=== PATIENT | female | born 1930 | race Caucasian/White ===

== ENCOUNTER 2017-09-11 16:04 | Emergency (ER) | payer OTHER ==
[~2017-09-11] VITALS: Ht 170.2 cm; Wt 80.5 kg
[~2017-09-11 16:04] MED LIST: ALBU6.7H INH; ALLO100T PO; PRED20 PO; ZITH250T PO
[2017-09-11 16:06] VITALS: BP 152/67; PULSE 93; RESP 16; TEMP 98.1; O2SAT 93
[2017-09-11] MEDS ORDERED: BENA10TA PO (16:21)
[2017-09-11] MEDS ORDERED: FURO1TAB62 PO (16:21)
[2017-09-11] MEDS ORDERED: ATOR40TA16 PO (16:21)
--- NOTE | 2017-09-11 16:43 | PD ---
HPI Chief Complaint: GI Complaint Time Seen by Provider: 16:12 Travel History International Travel<30 days: No Contact w/Intl Traveler<30days: No Traveled to known affect area: No History of Present Illness HPI The patient is a 87-year-old female who presents to the emergency department for constipation. The patient notes a one-week history of constipation. The patient estimates her last bowel movement was one week ago. The patient does complain of mild perirectal pain secondary to external hemorrhoids. She denies any nausea, vomiting, or abdominal pain. The patient states she has used [id number] suppositories, enemas, and MiraLAX without any alleviation of her symptoms. She denies any distention of the abdomen and has been able to eat without difficulty. The patient called her primary physician, Dr. Mendez, but was unable to obtain an appointment. She denies any fever, chills, or sweats. She denies any history of small bowel obstruction or partial small bowel obstruction. Symptoms are moderate, there are no current alleviating or exacerbating factors. PFSH Past Medical History Hx Anticoagulant Therapy: No Cardiovascular Problems: Yes (HTN, CHOL) High Cholesterol: Yes Cerebrovascular Accident: Yes (CVA) Diabetes: No Diminished Hearing: Yes ([place] Hypertension: Yes Tetanus Vaccination: Unknown Influenza Vaccination: No ?: Not Past Surgical History Cholecystectomy: Yes Hysterectomy: Yes Social History Alcohol Use: No Tobacco Use: Yes (1 PPD) Substance Use: No Allergies-Medications (Allergen,Severity, Reaction): Coded Allergies: codeine (Unverified Allergy, Mild, Constipation, 09/11/17) Reported Meds & Prescriptions Reported Meds & Active Scripts Active Reported Atorvastatin (Atorvastatin Calcium) 40 Mg Tab 40 Mg PO HS Benazepril (Benazepril HCl) 10 Mg Tab 10 Mg PO DAILY Lasix (Furosemide) 20 Mg Tab 20 Mg PO DAILY Review of Systems Except as stated in HPI: all other systems reviewed are Neg HENT: No: Lightheadedness Cardiovascular: No: Chest Pain or Discomfort Respiratory: No: Shortness of Breath Gastrointestinal: Positive: Constipation, Other (as noted in history present illness), No: Nausea, Vomiting, Diarrhea, Abdominal Pain Genitourinary: No: Dysuria Physical Exam Narrative GENERAL: Awake, alert, pleasant 87-year-old female who appears her stated age and is in no acute respiratory distress. SKIN: Focused skin assessment warm/dry. HEAD: Atraumatic. Normocephalic. EYES: No injection or drainage. ENT: No nasal bleeding or discharge. Mucous membranes pink and moist. NECK: Trachea midline. No JVD. GASTROINTESTINAL: Abdomen soft, non-tender, nondistended. No rebound tenderness , guarding, or rigidity. Back: No CVA tenderness. Rectal: The exam was performed in the presence of a female nurse. External examination reveals external hemorrhoids, no visible thrombosis or bleeding. Digital examination reveals no fecal impaction. No gross blood. MUSCULOSKELETAL: No obvious deformities. No clubbing. No cyanosis. No edema. NEUROLOGICAL: Awake and alert. No obvious cranial nerve deficits. Motor grossly within normal limits. Normal speech. PSYCHIATRIC: Appropriate mood and affect; insight and judgment normal. Data Data Last Documented VS Vital Signs Date Time Temp Pulse Resp B/P (MAP) Pulse Ox O2 Delivery O2 Flow Rate FiO2 09/11/17 16:06 98.1 93 16 152/67 (95) 93 Orders Orders Abdomen, Upright Only (09/11/17 ) [facility] Medical Decision Making Medical Screen Exam Complete: Yes Emergency Medical Condition: Yes Medical Record Reviewed: Yes Interpretation(s) X-ray of the abdomen upright reveals no pneumoperitoneum believe the hemidiaphragm. Several small air-fluid levels are seen involving gas filled loops of small bowel, no gross dilatation observed. No evidence of small bowel obstruction. Differential Diagnosis Differential diagnosis includes constipation, ileus, partial small bowel obstruction, small bowel obstruction, volvulus. Narrative Course A digital examination was performed, there is no obvious fecal impaction on examination. Upright abdominal x-ray was obtained to evaluate for possible air- fluid levels. X-ray reveals no air-fluid levels significant to suggest small bowel obstruction or ileus. The patient be discharged home on GoLYTELY. She is advised to follow-up with her primary physician if symptoms persist to follow -up with gastroenterology. Diagnosis Primary Impression: Constipation Qualified Codes: K59.00 - Constipation, unspecified Patient Instructions: General Instructions Additional Instructions: Plenty of fiber in her diet. GoLYTELY as directed. Plenty fluids to stay hydrated. Follow-up with your primary physician. Follow-up with gastroenterology if symptoms persist. Med/Other Pt SpecificInfo: Prescription(s) given Scripts Peg-Electrolytes (Golytely 236 gm) 4,000 Ml Soln 4000 ML PO ONCE for Bowel Cleanser, #1 CONTAINER 0 Refills Prov: Hi Krueger MD 09/11/17 Disposition: 01 DISCHARGE HOME Condition: Stable Hi Krueger MD Sep 11, 2017 16:43
--- NOTE | 2017-09-11 16:53 | RADRPT ---
EXAM DATE/TIME: 09/11/2017 16:30 [facility] COMPARISON: No previous studies available for comparison. INDICATIONS : Constipation. MEDICAL HISTORY : None. SURGICAL HISTORY : Hysterectomy. ENCOUNTER: Initial ACUITY: 1 week PAIN SCORE: 8/10 LOCATION: Bilateral abdomen FINDINGS: A single portable upright view of the upper abdomen shows no pneumoperitoneum below either hemidiaphr agm. Several small air-fluid levels are seen involving gas filled loops of small bowel. No gross dila tation observed. No organomegaly. Cholecystectomy clips noted. Calcified plaque involving the abdomin al aorta. CONCLUSION: No pneumoperitoneum. Jordan Ruiz Jr., MD on September 11, 2017 at 16:51 Board Certified Radiologist. This report was verified electronically.
[2017-09-11] MEDS ORDERED: COLY4000S PO (16:56)
== END 2017-09-11 17:07 | disposition home or self-care (01) ==
LOC: PHED 16:04
DX: K59.00 Constipation, unspecified (principal); K64.4 Residual hemorrhoidal skin tags; I10 Essential (primary) hypertension; Z86.73 Personal history of transient ischemic attack (TIA), and cerebral infarction without residual deficits; E78.00 Pure hypercholesterolemia, unspecified; F17.200 Nicotine dependence, unspecified, uncomplicated
CPT/HCPCS: 74000; 99284

== ENCOUNTER 2017-12-06 21:55 | Inpatient (IN) | payer OTHER, MEDICARE ==
[~2017-12-06] VITALS: Ht 172.7 cm; Wt 75.7 kg
[~2017-12-06 21:55] MED LIST changes: -ALBU6.7H INH; -ALLO100T PO; +ATOR40TA16 PO; +BENA10TA PO; +COLY4000S PO; +FURO1TAB62 PO; -PRED20 PO; -ZITH250T PO
[2017-12-06 21:58] VITALS: BP 197/91; PULSE 83; RESP 24; TEMP 98.8; O2SAT 97
[2017-12-06] MEDS ORDERED: SODIUM CHLORIDE 0.9% FLUSH 10 ML FLUSH IVF PRN (22:00)
[2017-12-06 22:01] VITALS: O2SAT 97
--- NOTE | 2017-12-06 22:07 | PD ---
HPI Chief Complaint: SOB Time Seen by Provider: 21:57 Travel History International Travel<30 days: No Contact w/Intl Traveler<30days: No History of Present Illness HPI 87-year-old female presents to emergency department complaining of shortness of breath since last night. Patient states that she was lying in bed and when she began feeling short of breath and has progressively worsened over the last day. Admits to orthopnea for the last week. Patient denies chest pain, back pain, abdominal pain. Patient has a history of atrial fibrillation on Eliquis and COPD for which uses inhalers. Denies history of congestive heart failure, heart attacks. States she is compliant with her medications. According to [facility] , Oxygen saturation was initially in the 80s after 1 DuoNeb, they then administered one dose of nitroglycerin and 80 mg Lasix. Patient with his then placed on BiPAP and her symptoms improved. 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 Pt continues to smoke heavily. PFSH Past Medical History Hx Anticoagulant Therapy: No Cardiovascular Problems: Yes (HTN, CHOL) High Cholesterol: Yes Cerebrovascular Accident: Yes (CVA) Diabetes: No Diminished Hearing: Yes ([place]) Hypertension: Yes Past Surgical History Cholecystectomy: Yes Hysterectomy: Yes Social History Alcohol Use: No Tobacco Use: Yes (1 PPD) Substance Use: No Allergies-Medications (Allergen,Severity, Reaction): Coded Allergies: codeine (Unverified Allergy, Mild, Constipation, 12/06/17) Reported Meds & Prescriptions Reported Meds & Active Scripts Active Reported Metoprolol Tartrate 50 Mg Tab 50 Mg PO BID Eliquis (Apixaban) 2.5 Mg Tab 2.5 Mg PO BID Mynephrocaps Softgel (B Complex W-C No.20/Folic Acid) 1 Mg Capsule Krill Oil 1,000 mg Softgel (Krill/Om-3/Dha/Epa/Phospho/Ast) 1,000-170MG Capsule Aspirin 81 (Aspirin) 81 Mg Tabdr 81 Mg PO DAILY D3 Super Strength (Cholecalciferol) 2,000 Unit Cap 2,000 Units PO DAILY Centrum Silver Adult 50+ (Multiple Vitamins W/ Minerals) 0.4 Mg-300 Mcg-250 Mcg Tab Combivent Respimat Inh (Ipratropium-Albuterol Inh) 20-100 Mcfp/Act Aero 1 Puff INH QID Potassium Chloride ER (Potassium Chloride) 10 Meq Cap 10 Meq PO DAILY Atorvastatin (Atorvastatin Calcium) 40 Mg Tab 40 Mg PO HS Benazepril (Benazepril HCl) 10 Mg Tab 10 Mg PO DAILY Review of Systems Except as stated in HPI: all other systems reviewed are Neg Physical Exam Narrative GENERAL: Well-developed well-nourished in mod distress SKIN: Focused skin assessment warm/dry. HEAD: Atraumatic. Normocephalic. EYES: Pupils equal and round. No scleral icterus. No injection or drainage. ENT: No nasal bleeding or discharge. Mucous membranes pink and moist. NECK: Trachea midline. No JVD. CARDIOVASCULAR: Regular rate and rhythm. No murmur appreciated. RESPIRATORY: Accessory muscle use. Wheezes in upper lung ibrahim, rales lower lung ibrahim GASTROINTESTINAL: Abdomen soft, non-tender, nondistended. MUSCULOSKELETAL: No obvious deformities. No clubbing. No cyanosis. No edema. Lower extremities- +2 pitting edema bilateral lower extremities, negative Homans sign bilaterally NEUROLOGICAL: Awake and alert. No obvious cranial nerve deficits. Motor grossly within normal limits. Normal speech. PSYCHIATRIC: Appropriate mood and affect; insight and judgment normal. Data Data Last Documented VS Vital Signs Date Time Temp Pulse Resp B/P (MAP) Pulse Ox O2 Delivery O2 Flow Rate FiO2 12/07/17 00:00 60 22 126/59 (81) 99 BiPAP 12/06/17 22:01 60 12/06/17 21:58 98.8 Orders Orders Complete Blood Count With Diff (12/06/17 21:58) Comprehensive Metabolic Panel (12/06/17 21:58) B-Type Natriuretic Peptide (12/06/17 21:58) Act Partial Throm Time (Ptt) (12/06/17 21:58) Prothrombin Time / Inr (Pt) (12/06/17 21:58) Magnesium (Mg) (12/06/17 21:58) Ckmb (Isoenzyme) Profile (12/06/17 21:58) Troponin I (12/06/17 21:58) Urinalysis - C+S If Indicated (12/06/17 21:58) Blood Culture (12/06/17 21:58) Iv Access Insert/Monitor (12/06/17 21:58) Electrocardiogram (12/06/17 21:58) Ecg Monitoring (1/14/18 21:58) Oximetry (12/06/17 21:58) Oxygen Administration (12/06/17 21:58) Urinary Catheter Insert/Apply (12/06/17 21:58) Chest, Single Ap (12/06/17 21:58) Arterial Blood Gas (Abg) (12/06/17 22:28) Levofloxacin 750 Mg Premix Inj (Levaquin (12/06/17 23:00) Admit Order (Ed Use Only) (12/07/17 ) Flower Picker / Telemetry [id number] (12/07/17 00:38) Activity Oob With Assistance (12/07/17 00:38) Notify Dr: Other (12/07/17 00:38) Labs Laboratory Tests Test 12/06/17 22:10 12/06/17 22:25 12/06/17 22:28 White Blood Count 14.0 TH/MM3 Red Blood Count 5.95 MIL/MM3 Hemoglobin 15.3 GM/DL Hematocrit 45.3 % Mean Corpuscular Volume 76.0 FL Mean Corpuscular Hemoglobin 25.7 PG Mean Corpuscular Hemoglobin Concent 33.8 % Red Cell Distribution Width 19.2 % Platelet Count 195 TH/MM3 Mean Platelet Volume 10.5 FL Neutrophils (%) (Auto) 73.9 % Lymphocytes (%) (Auto) 14.4 % Monocytes (%) (Auto) 7.1 % Eosinophils (%) (Auto) 4.1 % Basophils (%) (Auto) 0.5 % Neutrophils # (Auto) 10.3 TH/MM3 Lymphocytes # (Auto) 2.0 TH/MM3 Monocytes # (Auto) 1.0 TH/MM3 Eosinophils # (Auto) 0.6 TH/MM3 Basophils # (Auto) 0.1 TH/MM3 CBC Comment AUTO DIFF Differential Total Cells Counted 100 Neutrophils % (Manual) 43 % Band Neutrophils % 30 % Lymphocytes % 14 % Monocytes % 9 % Eosinophils % 4 % Neutrophils # (Manual) 10.2 TH/MM3 Differential Comment FINAL DIFF MANUAL Platelet Estimate NORMAL Platelet Morphology Comment ENLARGED Acanthocytes OCC Prothrombin Time 10.7 SEC Prothromb Time International Ratio 1.1 RATIO Activated Partial Thromboplast Time 21.7 SEC Blood Urea Nitrogen 19 MG/DL Creatinine 1.07 MG/DL Random Glucose 229 MG/DL Total Protein 8.1 GM/DL Albumin 3.2 GM/DL Calcium Level 8.9 MG/DL Magnesium Level 1.9 MG/DL Alkaline Phosphatase 106 U/L Aspartate Amino Transf (AST/SGOT) 39 U/L Alanine Aminotransferase (ALT/SGPT) 32 U/L Total Bilirubin 0.5 MG/DL Sodium Level 136 MEQ/L Potassium Level 4.3 MEQ/L Chloride Level 104 MEQ/L Carbon Dioxide Level 25.5 MEQ/L Anion Gap 7 MEQ/L Estimat Glomerular Filtration Rate 49 ML/MIN Total Creatine Kinase 87 U/L Troponin I 0.03 NG/ML B-Type Natriuretic Peptide 600 PG/ML Urine Color LIGHT-YELLOW Urine Turbidity CLEAR Urine pH 6.5 Urine Specific [place] 1.006 Urine Protein 100 mg/dL Urine Glucose (UA) TRACE mg/dL Urine Ketones NEG mg/dL Urine Occult Blood NEG Urine Nitrite NEG Urine Bilirubin NEG Urine Urobilinogen LESS THAN 2.0 MG/DL Urine Leukocyte Esterase NEG Urine RBC 2 /hpf Urine WBC 4 /hpf Urine Squamous Epithelial Cells <1 /hpf Urine Amorphous Sediment RARE Urine Bacteria RARE /hpf Microscopic Urinalysis Comment CULT NOT INDICATED Blood Gas Puncture Site RT RADIAL Blood Gas Patient Temperature 98.6 Blood Gas HCO3 24 mmol/L Blood Gas Base Excess -0.5 mmol/L Blood Gas Oxygen Saturation 96 % Arterial Blood pH 7.39 Arterial Blood Partial Pressure CO2 41 mmHg Arterial Blood Partial Pressure O2 99 mmHG Arterial Blood Oxygen Content 20.2 Vol % Arterial Blood Carboxyhemoglobin 1.6 % Arterial Blood Methemoglobin 0.6 % Blood Gas Hemoglobin 15.0 G/DL Oxygen Delivery Device BiPAP Blood Gas Ventilator Setting IPAP 12/ EPAP 5 Blood Gas Inspired Oxygen 60 % [facility] Medical Decision Making Medical Screen Exam Complete: Yes Emergency Medical Condition: Yes Differential Diagnosis Congestive heart failure, respiratory distress, COPD exacerbation, pneumonia, influenza Narrative Course 87-year-old female presents to emergency department complaining of shortness of breath since last night. Patient states that she was lying in bed and when she began feeling short of breath and has progressively worsened over the last day. Admits to orthopnea for the last week. Patient denies chest pain, back pain, abdominal pain. Patient has a history of atrial fibrillation on Eliquis and COPD for which uses inhalers. Denies history of congestive heart failure, heart attacks. States she is compliant with her medications. According to [facility] , Oxygen saturation was initially in the 80s after 1 DuoNeb, they then administered one dose of nitroglycerin and 80 mg Lasix. Patient with his then placed on BiPAP and her symptoms improved. 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 Pt continues to smoke heavily. Initial SaO2 87% in Bipap, improved to 100% with improvement in symptoms.. Patient remained on BiPAP while the emergency department. EKG demonstrates sinus rhythm at [address] elevations or depressions. Levaquin 750mg IV initiated. Please see Dr. Penn's note for final dispo and diagnosis. Admitting Information Admitting Physician Requests: Admit Condition: Stable Kelly Peoples Dec 06, 2017 22:07
[2017-12-06] MEDS ORDERED: B COCAP (22:34)
[2017-12-06] MEDS ORDERED: IPRAAER INH (22:34)
[2017-12-06] MEDS ORDERED: POTA10CA PO (22:34)
[2017-12-06] MEDS ORDERED: D200CAP PO (22:34)
[2017-12-06] MEDS ORDERED: KRIL1CAP (22:34)
[2017-12-06] MEDS ORDERED: ASPI1TAB57 PO (22:34)
[2017-12-06] MEDS ORDERED: MULT1TAB (22:34)
--- NOTE | 2017-12-06 22:38 | RADRPT ---
EXAM DATE/TIME: 12/06/2017 22:05 [facility] COMPARISON: No previous studies available for comparison. INDICATIONS : Short of breath MEDICAL HISTORY : Cerebrovascular disease. Chronic obstructive pulmonary disease. SURGICAL HISTORY : Hysterectomy. Cholecystectomy. ENCOUNTER: Initial ACUITY: 1 day PAIN SCORE: 0/10 LOCATION: Bilateral chest FINDINGS: Diffuse hazy parenchymal opacities are seen of both lungs. A somewhat masslike appearing focal opacit y is seen laterally of the right mid to lower lung measuring about 3 cm in size. There is a small left pleural effusion. No pneumothorax. CONCLUSION: Mild failure suspected. Possible mass or focal pneumonia of the right base. Doroteo Rico MD on December 06, 2017 at 22:34 Board Certified Radiologist. This report was verified electronically.
[2017-12-06 22:42] LABS: AMORPHOUS SEDIMENT, URINE RARE; BACTERIA, URINE RARE /hpf; BILIRUBIN, URINE NEG (NEG); BLOOD, URINE NEG (NEG); GLUCOSE,URINE TRACE mg/dL (NEG); KETONE, URINE NEG (NEG); NITRITE,URINE NEG (NEG); PH, URINE 6.5 (5.0-8.5); SQUAMOUS EPITHELIAL CELL URINE <1 /hpf (0-5); URINE COLOR LIGHT-YELLOW (YELLW/STRAW); URINE LEUKOCYTE ESTERASE NEG (NEG)
[2017-12-06 22:58] LABS: INTERNATIONAL NORMALIZED RATIO 1.1 RATIO; PROTHROMBIN TIME - PATIENT 10.7 SEC (9.8-11.6)
[2017-12-06 23:00] VITALS: BP 133/60; PULSE 68; RESP 27; O2SAT 99
[2017-12-06] MEDS ORDERED: LEVOFLOXACIN 750 MG PREMIX INJ 150 ML IV ONE (23:00)
[2017-12-06 23:03] LABS: ALBUMIN 3.2 GM/DL (3.4-5.0); ALKALINE PHOSPHATASE 106 U/L (45-117); ALT (GPT) 32 U/L (10-53); AST (GOT) 39 U/L (15-37); BICARBONATE 25.5 MEQ/L (21.0-32.0); BLOOD UREA NITROGEN 19 MG/DL (7-18); CALCIUM 8.9 MG/DL (8.5-10.1); CHLORIDE 104 MEQ/L (98-107); CREATININE 1.07 MG/DL (0.50-1.00); GLOMERULAR FILTRATION RATE 49 ML/MIN (>89); GLUCOSE,RANDOM 229 MG/DL (74-106); MAGNESIUM 1.9 MG/DL (1.5-2.5); SODIUM (NA) 136 MEQ/L (136-145); TOTAL BILIRUBIN ADULT 0.5 MG/DL (0.2-1.0); TOTAL PROTEIN 8.1 GM/DL (6.4-8.2); TROPONIN I 0.03 NG/ML (0.02-0.05)
[2017-12-06 23:23] LABS: AUTOMATED NEUTROPHIL # 10.3 TH/MM3 (1.8-7.7); BASOPHIL # 0.1 TH/MM3 (0-0.2); BASOPHIL % 0.5 % (0.0-2.0); EOSINOPHIL # 0.6 TH/MM3 (0-0.4); EOSINOPHIL % 4.1 % (0.0-4.0); HEMATOCRIT 45.3 % (35.0-46.0); HEMOGLOBIN 15.3 GM/DL (11.6-15.3); LYMPH % 14.4 % (9.0-44.0); MEAN CORPUSCULAR HEMOGLOBIN 25.7 PG (27.0-34.0); MEAN CORPUSCULAR HGB CONC 33.8 % (32.0-36.0); MEAN PLATELET VOLUME 10.5 FL (7.0-11.0); MONO % 7.1 % (0.0-8.0); NEUT % 73.9 % (16.0-70.0); PLATELET COUNT 195 TH/MM3 (150-450); RED BLOOD COUNT 5.95 MIL/MM3 (4.00-5.30); RED CELL DISTRIBUTION WIDTH 19.2 % (11.6-17.2)
[2017-12-06 23:30] VITALS: BP 150/67; PULSE 60; RESP 27; O2SAT 99
[2017-12-06 23:38] LABS: BANDS 30 % (0-6); LYMPHOCYTES 14 % (9-44); MONOCYTES 9 % (0-8); NEUTROPHIL # MANUAL DIFF 10.2 TH/MM3 (1.8-7.7); POLYS (SEG NEUTROPHILS) 43 % (16-70)
[2017-12-06 23:39] LABS: ACANTHOCYTES OCC (NORMAL)
[2017-12-07] VITALS (28 sets, daily range): BP systolic 113–168; BP diastolic 55–73; PULSE 59–83; RESP 16–22; TEMP 97.3–98.6; O2SAT 93–100
[2017-12-07] MEDS ORDERED: BISACODYL 10 MG SUPP RECTAL PRN (01:00)
[2017-12-07] MEDS ORDERED: MORPHINE SULFATE 2 MG/ML INJ IV PUSH PRN (01:00)
[2017-12-07] MEDS ORDERED: ONDANSETRON HCL 4 MG/2 ML VIAL IVP PRN (01:00)
[2017-12-07] MEDS ORDERED: RESP: ALBUTEROL 2.5 MG/IPRATROPIUM 0.5 MG NEB (PRN) NEB (01:00)
[2017-12-07] MEDS ORDERED: SENNOSIDES 8.6 MG TAB PO PRN (01:00)
[2017-12-07] MEDS ORDERED: SODIUM CHLORIDE 0.9% FLUSH 10 ML FLUSH IV FLUSH PRN (01:00)
[2017-12-07] MEDS ORDERED: MAGNESIUM HYDROXIDE SUSP 30 ML CUP PO PRN (01:00)
[2017-12-07] MEDS ORDERED: LACTULOSE SYRUP 20 GM/30 ML CUP PO PRN (01:00)
[2017-12-07] MEDS ORDERED: ACETAMINOPHEN 325 MG TAB PO PRN (01:00)
[2017-12-07] MEDS ORDERED: DEXTROSE 50% IN WATER 50 ML VIAL(D50) IV PUSH PRN (02:30)
[2017-12-07] MEDS ORDERED: GLUCAGON 1 MG/ML VIAL OTHER PRN (02:30)
--- NOTE | 2017-12-07 02:50 | HHI.HP ---
HPI Service [facility] Primary [facility] Physician Unknown Admission Diagnosis chf Diagnoses: (1) CHF (congestive heart failure) Diagnosis: Principal (2) Acute respiratory failure Diagnosis: Principal (3) Leukocytosis Diagnosis: Principal (4) DM (diabetes mellitus) Diagnosis: Principal (5) Tobacco abuse Diagnosis: Principal Travel History International Travel<30 Days: No Contact w/Intl Traveler <30 Da: No Traveled to Known Affected Are: No History of Present Illness This is an 87-year-old female with PMH of HTN, Hyperlipidemia, CHF (Unknown EF) , A. fib on Eliquis, CVA, Tobacco Abuse and COPD who was brought to the ER by EMS secondary to severe SOB. States SOB started last night, has gotten progressively more severe today, worse w/ movement. No fever, chills, chest pain or cough. Does note bilateral lower extremity edema. Per EMS, O2 sat 88% on RA, started on CPAP, transitioned to BIPAP on arrival to ER. S/p Lasix 80mg IV by EMS. On arrival, BP 197/91, HR 83, O2 sat 97% on BiPAP, 60% FiO2, Afebrile. WBC 14.0, 30% bands. Creatinine 1.07. BS 229. BNP 600. INR 1.1. UA negative. ABG essentially unremarkable on BiPAP. CXR with mild failure suspected, possible mass or focal pneumonia at right base. S/p Levaquin in ER. Review of Systems Except as stated in HPI: all other systems reviewed are Neg ROS: 14 point review of systems otherwise negative. Past Family Social History Past Medical History PMH: HTN, Hyperlipidemia, CHF (Unknown EF), A. fib on Eliquis, CVA, Tobacco Abuse and COPD Past Surgical History PAST SURGICAL HISTORY: Cholecystectomy, Hysterectomy Allergies: Coded Allergies: codeine (Unverified Allergy, Mild, Constipation, 12/06/17) Family History PAST FAMILY HISTORY: Reviewed. No h/o DM or CAD Social History PAST SOCIAL HISTORY: Negative for alcohol or drugs. Smokes 1ppd. Physical Exam Vital Signs Vital Signs Date Time Temp Pulse Resp B/P (MAP) Pulse Ox O2 Delivery O2 Flow Rate FiO2 12/07/17 01:15 99 60 12/07/17 00:00 60 22 126/59 (81) 99 BiPAP 12/06/17 23:30 60 27 150/67 (94) 99 BiPAP 12/06/17 23:00 68 27 133/60 (84) 99 BiPAP 12/06/17 22:03 97 BiPAP 12/06/17 22:03 97 BiPAP 12/06/17 22:01 97 60 12/06/17 21:58 98.8 83 24 197/91 (126) 97 Physical Exam PE: GENERAL: Pleasant elderly white female in no acute distress, currently on BIPAP HEENT: PERRLA, EOMI. No scleral icterus or conjunctival pallor. No lid lag or facial droop. CARDIOVASCULAR: Regular rate and rhythm. No obvious murmurs to auscultation. No chest tenderness to palpation. RESPIRATORY: No obvious rhonchi. Bilateral expiratory wheezing. Breath sounds equal bilaterally. GASTROINTESTINAL: Abdomen soft, non-tender, nondistended. BS normal. MUSCULOSKELETAL: Extremities without clubbing, cyanosis, or edema. No obvious deformities. NEUROLOGICAL: Awake, alert and oriented x4. No focal neurologic deficits. Moving both upper and lower extremities spontaneously. Laboratory Laboratory Tests Test 12/06/17 22:10 12/06/17 22:25 12/06/17 22:28 White Blood Count 14.0 Red Blood Count 5.95 Hemoglobin 15.3 Hematocrit 45.3 Mean Corpuscular Volume 76.0 Mean Corpuscular Hemoglobin 25.7 Mean Corpuscular Hemoglobin Concent 33.8 Red Cell Distribution Width 19.2 Platelet Count 195 Mean Platelet Volume 10.5 Neutrophils (%) (Auto) 73.9 Lymphocytes (%) (Auto) 14.4 Monocytes (%) (Auto) 7.1 Eosinophils (%) (Auto) 4.1 Basophils (%) (Auto) 0.5 Neutrophils # (Auto) 10.3 Lymphocytes # (Auto) 2.0 Monocytes # (Auto) 1.0 Eosinophils # (Auto) 0.6 Basophils # (Auto) 0.1 CBC Comment AUTO DIFF Differential Total Cells Counted 100 Neutrophils % (Manual) 43 Band Neutrophils % 30 Lymphocytes % 14 Monocytes % 9 Eosinophils % 4 Neutrophils # (Manual) 10.2 Differential Comment FINAL DIFF MANUAL Platelet Estimate NORMAL Platelet Morphology Comment ENLARGED Acanthocytes OCC Prothrombin Time 10.7 Prothromb Time International Ratio 1.1 Activated Partial Thromboplast Time 21.7 Blood Urea Nitrogen 19 Creatinine 1.07 Random Glucose 229 Total Protein 8.1 Albumin 3.2 Calcium Level 8.9 Magnesium Level 1.9 Alkaline Phosphatase 106 Aspartate Amino Transf (AST/SGOT) 39 Alanine Aminotransferase (ALT/SGPT) 32 Total Bilirubin 0.5 Sodium Level 136 Potassium Level 4.3 Chloride Level 104 Carbon Dioxide Level 25.5 Anion Gap 7 Estimat Glomerular Filtration Rate 49 Total Creatine Kinase 87 Troponin I 0.03 B-Type Natriuretic Peptide 600 Urine Color LIGHT-YELLOW Urine Turbidity CLEAR Urine pH 6.5 Urine Specific [place] 1.006 Urine Protein 100 Urine Glucose (UA) TRACE Urine Ketones NEG Urine Occult Blood NEG Urine Nitrite NEG Urine Bilirubin NEG Urine Urobilinogen LESS THAN 2.0 Urine Leukocyte Esterase NEG Urine RBC 2 Urine WBC 4 Urine Squamous Epithelial Cells <1 Urine Amorphous Sediment RARE Urine Bacteria RARE Microscopic Urinalysis Comment CULT NOT INDICATED Blood Gas Puncture Site RT RADIAL Blood Gas Patient Temperature 98.6 Blood Gas HCO3 24 Blood Gas Base Excess -0.5 Blood Gas Oxygen Saturation 96 Arterial Blood pH 7.39 Arterial Blood Partial Pressure CO2 41 Arterial Blood Partial Pressure O2 99 Arterial Blood Oxygen Content 20.2 Arterial Blood Carboxyhemoglobin 1.6 Arterial Blood Methemoglobin 0.6 Blood Gas Hemoglobin 15.0 Oxygen Delivery Device BiPAP Blood Gas Ventilator Setting IPAP 12/ EPAP 5 Blood Gas Inspired Oxygen 60 Date/Time Source Procedure Growth Status 12/06/17 23:40 Blood Peripheral Aerobic Blood Culture Pending Received 12/06/17 23:40 Blood Peripheral Anaerobic Blood Culture Pending Received Result Diagram: 12/06/17220912/06/172209 Caprini VTE Risk Assessment Caprini VTE Risk Assessment: Mod/High Risk (score >= 2) Caprini Risk Assessment Model Point Value = 1 Point Value = 2 Point Value = 3 Point Value = 5 Age 41-60 Minor surgery BMI > 25 kg/m2 Swollen legs Varicose veins or History of unexplained or recurrent spontaneous Oral contraceptives or hormone replacement Sepsis (< 1 month) Serious lung disease, including pneumonia (< 1 month) Abnormal pulmonary function Acute myocardial infarction Congestive heart failure (< 1 month) History of inflammatory bowel disease Medical patient at bed rest Age 61-74 Arthroscopic surgery Major open surgery (> 45 min) Laparoscopic surgery (> 45 min) Malignancy Confined to bed (> 72 hours) Immobilizing plaster cast Central venous access Age >= 75 History of VTE Family history of VTE Factor V Leiden Prothrombin [id number] Lupus anticoagulant Anticardiolipin antibodies Elevated serum homocysteine Heparin-induced thrombocytopenia Other congenital or acquired thrombophilia Stroke (< 1 month) Elective arthroplasty Hip, pelvis, or leg fracture Acute spinal cord injury (< 1 month) Prophylaxis Regimen Total Risk Factor Score Risk Level Prophylaxis Regimen 0-1 Low Early ambulation 2 Moderate Order ONE of the following: *Sequential Compression Device (SCD) *Heparin 5000 units SQ BID 3-4 Higher Order ONE of the following medications: *Heparin 5000 units SQ TID *Enoxaparin/Lovenox 40 mg SQ daily (WT < 150 kg, CrCl > 30 mL/min) *Enoxaparin/Lovenox 30 mg SQ daily (WT < 150 kg, CrCl > 10-29 mL/min) *Enoxaparin/Lovenox 30 mg SQ BID (WT < 150 kg, CrCl > 30 mL/min) AND/OR *Sequential Compression Device (SCD) 5 or more Highest Order ONE of the following medications: *Heparin 5000 units SQ TID (Preferred with Epidurals) *Enoxaparin/Lovenox 40 mg SQ daily (WT < 150 kg, CrCl > 30 mL/min) *Enoxaparin/Lovenox 30 mg SQ daily (WT < 150 kg, CrCl > 10-29 mL/min) *Enoxaparin/Lovenox 30 mg SQ BID (WT < 150 kg, CrCl > 30 mL/min) AND *Sequential Compression Device (SCD) Assessment and Plan Problem List: (1) Acute respiratory failure ICD Code: J96.00 - Acute respiratory failure, unspecified whether with hypoxia or hypercapnia (2) CHF (congestive heart failure) ICD Code: I50.9 - Heart failure, unspecified (3) Leukocytosis ICD Code: D72.829 - Elevated white blood cell count, unspecified (4) DM (diabetes mellitus) ICD Code: E11.9 - Type 2 diabetes mellitus without complications (5) Tobacco abuse ICD Code: Z72.0 - Tobacco use Assessment and Plan A/P: 1. Acute Respiratory Failure: O2 sat 88% on RA, significant wheezing/crackles/ work of breathing, on BIPAP. Wean as tolerated. DuoNeb q4h and q2h prn. Monitor O2. Telemetry. 2. CHF: Acute on Chronic. EF Unknown. BNP 600, CXR w/ mild failure suspected , images reviewed by me. Monitor I/O, continue w/ diuresis. Check Echo to eval for extent of heart failure. Follows w/ Dr. Coello as outpatient, will consult as needed for further evaluation. 3. Leukocytosis: w/ significant bandemia of 30%, afebrile. CXR w/ possible underlying consolidation/mass. S/p IV Levaquin, continue w/ IV Abx. +Tobacco Abuse, concern for underlying malignancy, check CT Chest w/ contrast when respiratory status stable. 4. DM: Uncontrolled. Sliding scale w/ Accu-Cheks. Check Hgb A1c. 5. Tobacco Abuse: Ongoing. Pt counselled. NicoDerm prn if needed. 6. DVT Prophylaxis: On Eliquis 7. Social work for d/c planning as needed. 8. Labs/records/imaging reviewed by me, case discussed w/ ER physician at length. Physician Certification 2 Midnight Certification Type: Admission for Inpatient Services Order for Inpatient Services The services are ordered in accordance with Medicare regulations or non- Medicare payer requirements, as applicable. In the case of services not specified as inpatient-only, they are appropriately provided as inpatient services in accordance with the 2-midnight benchmark. Estimated LOS (days): 2 days is the estimated time the patient will need to remain in the hospital, assuming treatment plan goals are met and no additional complications. Post-Hospital Plan: Not yet determined Ana Powell MD Dec 07, 2017 02:50
[2017-12-07] MEDS ORDERED: IOHEXOL 350 MG/ML 10 ML VIAL (for RAD DIAG) IVCONTRAST ONE (03:46)
--- NOTE | 2017-12-07 04:26 | RADRPT ---
EXAM DATE/TIME: 12/07/2017 03:34 [place] COMPARISON: CHEST SINGLE AP, December 06, 2017, 22:05. INDICATIONS : Abnormal chest X-ray. Evaluate for mass. IV CONTRAST: 70 cc Omnipaque 350 (iohexol) IV RADIATION DOSE: 12.74 CTDIvol (mGy) MEDICAL HISTORY : Cerebrovascular disease. Hypertension. SURGICAL HISTORY : Cholecystectomy. ENCOUNTER: Initial ACUITY: 1 day PAIN SCALE: 0/10 LOCATION: chest TECHNIQUE: Volumetric scanning of the chest was performed. Using automated exposure control and adjustment of t he mA and/or kV according to patient size, radiation dose was kept as low as reasonably achievable to obtain optimal diagnostic quality images. DICOM format image data is available electronically for review and comparison. Follow-up recommendations for detected pulmonary nodules are based at a minimum on nodule size and pa tient risk factors according to Fleischner Society Guidelines. FINDINGS: LUNGS: There is increased density in the subpleural regions of the lower lobes bilaterally. There is vgue in creased density at the anterior aspects of the upper lobes bilaterally and in the anterior aspect of the right middle lobe. No focal masses are seen. PLEURA: There are minimal bilateral pleural effusion. MEDIASTINUM: The heart and great vessels demonstrate no acute abnormality. There is no mediastinal or hilar lymph adenopathy. Coronary artery calcifications are present. AXILLAE: Within normal limits. No lymphadenopathy. SKELETAL: Within normal limits for patient age. MISCELLANEOUS: The visualized upper abdominal organs demonstrate no acute abnormality. There is a minimal hiatal her neelima present. There is a 1.9 cm cyst at the anterior aspect the liver. CONCLUSION: 1. No focal mass is seen. 2. Minimal bilateral pleural effusions. 3. Subpleural areas of suspected atelectasis. 4. Vague density in the anterior upper lobes and right middle lobe likely related to interstitial pro minence in these regions. Doroteo Wheeler MD on December 07, 2017 at 4:17 Board Certified Radiologist. This report was verified electronically.
[2017-12-07] MEDS: INSULIN ASPART SUPPLEMENTAL SCALE SQ SCH ×4 (08:00→20:34)
[2017-12-07 08:35] LABS: HEMOGLOBIN A1C 7.2 % (4.3-6.0)
[2017-12-07] MEDS ORDERED: ACETAMINOPHEN/HYDROcodone 325 MG/7.5 MG TAB PO PRN (08:45)
[2017-12-07] MEDS ORDERED: NALOXONE HCL 0.4 MG/ML AMP IV PUSH PRN (08:45)
[2017-12-07] MEDS ORDERED: RESP: ALBUTEROL 0.63 MG/3 ML NEB (PRN) NEB (08:45)
[2017-12-07] MEDS ORDERED: ACETAMINOPHEN/HYDROcodone 325 MG/5 MG TAB PO PRN (08:45)
[2017-12-07] MEDS: BUDESONIDE-FORMOTEROL 160/4.5 MCG INHALER INH SCH ×2 (09:00→20:44)
[2017-12-07] MEDS: ASPIRIN EC 81 MG TABEC PO SCH (09:14)
[2017-12-07] MEDS: FUROSEMIDE 40 MG/4 ML VIAL IV PUSH SCH ×2 (09:14→17:30)
[2017-12-07] MEDS: SODIUM CHLORIDE 0.9% FLUSH 10 ML FLUSH IV FLUSH SCH ×2 (09:15→20:33)
[2017-12-07] MEDS: CHOLECALCIFEROL (VIT D3) 1000 UNIT TAB PO SCH (09:15)
[2017-12-07] MEDS: DOCUSATE SODIUM 50 MG/SENNA 8.6 MG TAB PO SCH ×2 (09:20→20:34)
[2017-12-07] MEDS: HEPARIN SODIUM - SQ 10,000 UNITS/ML VIAL SQ SCH ×2 (09:21→20:33)
--- NOTE | 2017-12-07 09:59 | HHI.PR ---
Subjective Remarks Follow-up acute respiratory failure, heart failure and pneumonia. Improving tolerating nasal cannula. States she has productive cough with whitish phlegm because she smokes. No fever or chills. States she has history of heart failure just started on Lasix. CHF education provided. She also has heart failure on Eliquis however not on her med list. Discussed with RN to update medication list. Objective Vitals Vital Signs Date Time Temp Pulse Resp B/P (MAP) Pulse Ox O2 Delivery O2 Flow Rate FiO2 12/07/17 08:08 12/07/17 06:33 98.2 61 17 128/59 (82) 97 Nasal Cannula 3.00 12/07/17 03:57 18 97 Nasal Cannula 3.00 12/07/17 03:47 97 Nasal Cannula 3.00 12/07/17 03:00 59 17 113/55 (74) 100 BiPAP 60 12/07/17 01:15 99 60 12/07/17 00:00 60 22 126/59 (81) 99 BiPAP 12/06/17 23:30 60 27 150/67 (94) 99 BiPAP 12/06/17 23:00 68 27 133/60 (84) 99 BiPAP 12/06/17 22:03 97 BiPAP 12/06/17 22:03 97 BiPAP 12/06/17 22:01 97 60 12/06/17 21:58 98.8 83 24 197/91 (126) 97 I/O 12/06/17 12/06/17 12/06/17 12/07/17 12/07/17 12/07/17 07:00 15:00 23:00 07:00 15:00 23:00 Intake Total 150 ml Output Total 2175 ml Balance -2025 ml Intake IV Total 150 ml Output Urine Total 2175 ml Result Diagram: 12/06/17 2210 12/06/17 2210 Imaging Last Impressions Chest CT 12/07/17 0000 Signed Impressions: Service Date/Time: Thursday, December 07, 2017 03:34 - CONCLUSION: 1. No focal mass is seen. 2. Minimal bilateral pleural effusions. 3. Subpleural areas of suspected atelectasis. 4. Vague density in the anterior upper lobes and right middle lobe likely related to interstitial prominence in these regions. Doroteo Wheeler MD Chest X-Ray 12/06/172157 Signed Impressions: Service Date/Time: Wednesday, December 06, 2017 22:05 - CONCLUSION: Mild failure suspected. Possible mass or focal pneumonia of the right base. Doroteo Rico MD Objective Remarks GENERAL: Pleasant elderly white female in no acute distress, currently on nasal cannula HEENT: PERRLA, EOMI. No scleral icterus or conjunctival pallor. No lid lag or facial droop. CARDIOVASCULAR: Irregularly irregular with systolic murmur noted RESPIRATORY: No obvious rhonchi. Decreased Breath sounds equal bilaterally. GASTROINTESTINAL: Abdomen soft, non-tender, nondistended. BS normal. MUSCULOSKELETAL: Extremities without clubbing, cyanosis, or edema. No obvious deformities. NEUROLOGICAL: Awake, alert and oriented x4. No focal neurologic deficits. Moving both upper and lower extremities spontaneously. Procedures Non- A/P Problem List: (1) Acute respiratory failure ICD Code: J96.00 - Acute respiratory failure, unspecified whether with hypoxia or hypercapnia (2) CHF (congestive heart failure) ICD Code: I50.9 - Heart failure, unspecified (3) Leukocytosis ICD Code: D72.829 - Elevated white blood cell count, unspecified (4) DM (diabetes mellitus) ICD Code: E11.9 - Type 2 diabetes mellitus without complications (5) Tobacco abuse ICD Code: Z72.0 - Tobacco use Assessment and Plan 1. Acute Respiratory Failure: Improved currently on nasal cannula. BiPAP as needed. 2. CHF: Acute on Chronic. EF Unknown. BNP 600, CXR w/ mild failure suspected , images reviewed by me. Monitor I/O, continue w/ diuresis. Check Echo to eval for extent of heart failure. Follows w/ Dr. Coello as outpatient, will consult as needed for further evaluation. Continue IV diuresis. CHF education 3. Sepsis secondary to community-acquired pneumonia. Switched to IV Zithromax and Rocephin and follow-up sputum and blood cultures. L 4. DM: Uncontrolled. Sliding scale w/ Accu-Cheks. Check Hgb A1c. 5. Tobacco Abuse: Ongoing. Pt counselled. NicoDerm prn if needed. 6. DVT Prophylaxis: On subcutaneous heparin. We'll discontinue once med rec is completed and Eliquis is confirmed Discharge Planning Not stable for discharge requiring IV diuresis and IV antibiotics for sepsis secondary to pneumonia. Follow-up echocardiogram Neil Ferguson MD Dec 07, 2017 09:59
[2017-12-07] MEDS: cefTRIAXone INJ 1,000 MG in SODIUM CHLORIDE 0.9% INJ 100 ML IV SCH (10:10)
[2017-12-07] MEDS: AZITHROMYCIN INJ 500 MG in SODIUM CHLOR 0.9% 250 ML INJ 250 ML IV SCH (11:44)
[2017-12-07] MEDS: RESP: ALBUTEROL 2.5 MG/IPRATROPIUM 0.5 MG NEB (SCH) NEB ×3 (12:41→19:58)
--- NOTE | 2017-12-07 15:41 | EKG ---
Date Performed: 12/06/2017 Time Performed: 21:59:20 PTAGE: 87 years EKG: Sinus rhythm POSSIBLE LEFT ATRIAL ENLARGEMENT BORDERLINE ECG NO PREVIOUS TRACING DOCTOR: Yosef Baez Interpretating Date/Time 12/07/2017 15:40:17
[2017-12-07] MEDS ORDERED: METO50TA PO (15:58)
[2017-12-07] MEDS ORDERED: APIX2.5T PO (15:58)
[2017-12-07] MEDS: ATORVASTATIN 40 MG TAB PO SCH (20:34)
[2017-12-07] MEDS ORDERED: MELATONIN 5 MG TAB PO ONE (21:15)
[2017-12-08] VITALS (32 sets, daily range): BP systolic 106–130; BP diastolic 56–65; PULSE 55–108; RESP 16–18; TEMP 97.6–98.4; O2SAT 92–96
[2017-12-08 05:08] LABS: BASOPHIL # 0.1 TH/MM3 (0-0.2); BASOPHIL % 3.7 % (0.0-2.0); EOSINOPHIL # 0.3 TH/MM3 (0-0.4); EOSINOPHIL % 8.3 % (0.0-4.0); HEMATOCRIT 39.2 % (35.0-46.0); HEMOGLOBIN 12.8 GM/DL (11.6-15.3); LYMPH % 42.1 % (9.0-44.0); LYMPHOCYTE # 1.6 TH/MM3 (1.0-4.8); MEAN CELL VOLUME 75.5 FL (80.0-100.0); MEAN CORPUSCULAR HEMOGLOBIN 24.6 PG (27.0-34.0); MEAN CORPUSCULAR HGB CONC 32.6 % (32.0-36.0); MEAN PLATELET VOLUME 9.9 FL (7.0-11.0); MONO % 20.8 % (0.0-8.0); MONOCYTE # 0.8 TH/MM3 (0-0.9); NEUT % 25.1 % (16.0-70.0); PLATELET COUNT 121 TH/MM3 (150-450); RED BLOOD COUNT 5.19 MIL/MM3 (4.00-5.30); RED CELL DISTRIBUTION WIDTH 19.3 % (11.6-17.2); WHITE BLOOD COUNT 3.9 TH/MM3 (4.0-11.0)
[2017-12-08 06:35] LABS: ALBUMIN 2.6 GM/DL (3.4-5.0); ALKALINE PHOSPHATASE 78 U/L (45-117); ALT (GPT) 22 U/L (10-53); AST (GOT) 15 U/L (15-37); BICARBONATE 28.5 MEQ/L (21.0-32.0); BLOOD UREA NITROGEN 35 MG/DL (7-18); CALCIUM 8.9 MG/DL (8.5-10.1); CHLORIDE 98 MEQ/L (98-107); GLOMERULAR FILTRATION RATE 39 ML/MIN (>89); GLUCOSE,RANDOM 117 MG/DL (74-106); SODIUM (NA) 138 MEQ/L (136-145); TOTAL BILIRUBIN ADULT 0.4 MG/DL (0.2-1.0); TOTAL PROTEIN 6.5 GM/DL (6.4-8.2)
[2017-12-08] MEDS: INSULIN ASPART SUPPLEMENTAL SCALE SQ SCH ×4 (07:03→20:35)
[2017-12-08] MEDS: RESP: ALBUTEROL 2.5 MG/IPRATROPIUM 0.5 MG NEB (SCH) NEB ×4 (08:13→20:35)
[2017-12-08] MEDS: CHOLECALCIFEROL (VIT D3) 1000 UNIT TAB PO SCH (08:28)
[2017-12-08] MEDS: DOCUSATE SODIUM 50 MG/SENNA 8.6 MG TAB PO SCH ×2 (08:28→20:35)
[2017-12-08] MEDS: FUROSEMIDE 40 MG/4 ML VIAL IV PUSH SCH ×2 (08:28→17:07)
[2017-12-08] MEDS: BUDESONIDE-FORMOTEROL 160/4.5 MCG INHALER INH SCH ×2 (08:28→20:36)
[2017-12-08] MEDS: ASPIRIN EC 81 MG TABEC PO SCH (08:29)
[2017-12-08] MEDS: SODIUM CHLORIDE 0.9% FLUSH 10 ML FLUSH IV FLUSH SCH ×2 (08:29→20:35)
[2017-12-08] MEDS: cefTRIAXone INJ 1,000 MG in SODIUM CHLORIDE 0.9% INJ 100 ML IV SCH (08:30)
[2017-12-08] MEDS: HEPARIN SODIUM - SQ 10,000 UNITS/ML VIAL SQ SCH ×2 (08:30→20:35)
[2017-12-08] MEDS: AZITHROMYCIN INJ 500 MG in SODIUM CHLOR 0.9% 250 ML INJ 250 ML IV SCH (10:21)
--- NOTE | 2017-12-08 12:10 | HHI.PR ---
Subjective Remarks Patient has had some improvement since admitted. She is currently off BiPAP. Sepsis is improved. Right now she complains of weakness. Objective Vital Signs Date Time Temp Pulse Resp B/P (MAP) Pulse Ox O2 Delivery O2 Flow Rate FiO2 12/08/17 12:00 81 12/08/17 11:17 97.8 76 18 124/59 (80) 93 12/08/17 11:01 93 Room Air 12/08/17 11:00 73 12/08/17 10:00 89 12/08/17 09:00 85 12/08/17 08:13 92 21 12/08/17 08:00 80 12/08/17 07:35 94 Room Air 12/08/17 07:35 97.7 63 18 130/60 (83) 94 12/08/17 07:00 58 12/08/17 06:01 65 12/08/17 05:37 94 Room Air 12/08/17 05:03 62 12/08/17 04:00 65 12/08/17 03:12 97.6 65 16 122/56 (78) 95 12/08/17 03:07 95 Nasal Cannula 1.00 12/08/17 03:03 56 12/08/17 02:00 61 12/08/17 01:01 62 12/08/17 00:05 55 12/07/17 23:22 97 Nasal Cannula 2.00 12/07/17 23:00 59 12/07/17 22:42 97.3 64 16 113/56 (75) 97 12/07/17 22:00 65 12/07/17 21:00 65 12/07/17 20:00 69 12/07/17 19:58 93 Nasal Cannula 3.00 12/07/17 19:42 93 Nasal Cannula 2.00 12/07/17 19:37 97.6 63 16 129/60 (83) 93 12/07/17 19:00 70 12/07/17 18:00 71 12/07/17 17:00 69 12/07/17 16:00 70 12/07/17 15:14 95 Nasal Cannula 2.00 12/07/17 15:13 98.6 75 18 133/61 (85) 95 12/07/17 15:00 63 12/07/17 14:00 65 12/07/17 13:00 83 I/O 12/07/17 12/07/17 12/07/17 12/08/17 12/08/17 12/08/17 07:00 15:00 23:00 07:00 15:00 23:00 Intake Total 150 ml 720 ml 240 ml Output Total 2175 ml 1600 ml 1050 ml Balance -2025 ml -880 ml -810 ml Intake Oral 720 ml 240 ml IV Total 150 ml Output Urine Total 2175 ml 1600 ml 1050 ml Result Diagram: 12/08/17 0335 12/08/17 0335 Objective Remarks GENERAL: NAD, A&Ox3 HEAD: Normocephalic. NECK: Supple, trachea midline. No lymphadenopathy. EYES: No scleral icterus. No injection or drainage. CARDIOVASCULAR: Regular rate and rhythm without murmurs, gallops, or rubs. RESPIRATORY: Breath sounds equal bilaterally. No accessory muscle use. GASTROINTESTINAL: Abdomen soft, non-tender, nondistended. MUSCULOSKELETAL: No cyanosis, or edema. SKIN: Warm and dry. Petechial purpura skin NEURO: No focal neurological deficitis. A/P Problem List: (1) DM (diabetes mellitus) ICD Code: E11.9 - Type 2 diabetes mellitus without complications (2) Tobacco abuse ICD Code: Z72.0 - Tobacco use (3) Leukocytosis ICD Code: D72.829 - Elevated white blood cell count, unspecified (4) CHF (congestive heart failure) ICD Code: I50.9 - Heart failure, unspecified (5) Acute respiratory failure ICD Code: J96.00 - Acute respiratory failure, unspecified whether with hypoxia or hypercapnia Assessment and Plan 87-year-old female admitted secondary to pneumonia with CHF exacerbation and sepsis resulting in acute respiratory distress and failure. Acute respiratory failure Respiratory distress Hypoxia Improving Continue duo nebs Continue oxygen support Presently off BiPAP Treat infection Acute on Chronic, Systolic CHF Triggered by Pneumonia Treat Pneumonia Diuresis Follow for improvement Echocardiogram Pneumonia Leukocytosis Continue Levaquin Probiotic Patient counseled to quit smoking Nicotine dependence He has been counseled to quit smoking Diabetes mellitus type 2 Follow blood sugars Insulin sliding scale Diabetic diet DVT prophylaxis Alfonzo Feldman MD Dec 08, 2017 12:10
[2017-12-08] MEDS: ATORVASTATIN 40 MG TAB PO SCH (20:35)
[2017-12-09] VITALS (26 sets, daily range): BP systolic 130–152; BP diastolic 60–66; PULSE 74–114; RESP 17–20; TEMP 97.7–98.6; O2SAT 92–97
[2017-12-09] MEDS ORDERED: LEVOFLOXACIN 750 MG PREMIX INJ 150 ML IV SCH
[2017-12-09 05:30] LABS: BASOPHIL # 0.2 TH/MM3 (0-0.2); BASOPHIL % 4.5 % (0.0-2.0); EOSINOPHIL # 0.4 TH/MM3 (0-0.4); EOSINOPHIL % 9.7 % (0.0-4.0); HEMATOCRIT 37.9 % (35.0-46.0); HEMOGLOBIN 12.8 GM/DL (11.6-15.3); LYMPH % 38.5 % (9.0-44.0); LYMPHOCYTE # 1.5 TH/MM3 (1.0-4.8); MEAN CELL VOLUME 74.4 FL (80.0-100.0); MEAN CORPUSCULAR HEMOGLOBIN 25.1 PG (27.0-34.0); MEAN CORPUSCULAR HGB CONC 33.8 % (32.0-36.0); MONO % 21.2 % (0.0-8.0); MONOCYTE # 0.8 TH/MM3 (0-0.9); NEUT % 26.1 % (16.0-70.0); PLATELET COUNT 129 TH/MM3 (150-450); RED BLOOD COUNT 5.09 MIL/MM3 (4.00-5.30); RED CELL DISTRIBUTION WIDTH 19.2 % (11.6-17.2); WHITE BLOOD COUNT 3.9 TH/MM3 (4.0-11.0)
[2017-12-09 05:50] LABS: ALBUMIN 2.8 GM/DL (3.4-5.0); ALT (GPT) 21 U/L (10-53); AST (GOT) 12 U/L (15-37); BICARBONATE 30.7 MEQ/L (21.0-32.0); BLOOD UREA NITROGEN 34 MG/DL (7-18); CALCIUM 8.6 MG/DL (8.5-10.1); CHLORIDE 99 MEQ/L (98-107); CREATININE 1.13 MG/DL (0.50-1.00); GLOMERULAR FILTRATION RATE 46 ML/MIN (>89); GLUCOSE,RANDOM 105 MG/DL (74-106); SODIUM (NA) 138 MEQ/L (136-145)
[2017-12-09 05:52] LABS: ALKALINE PHOSPHATASE 76 U/L (45-117); TOTAL BILIRUBIN ADULT 0.4 MG/DL (0.2-1.0); TOTAL PROTEIN 6.6 GM/DL (6.4-8.2)
[2017-12-09] MEDS: RESP: ALBUTEROL 2.5 MG/IPRATROPIUM 0.5 MG NEB (SCH) NEB ×4 (07:38→19:49)
[2017-12-09] MEDS: INSULIN ASPART SUPPLEMENTAL SCALE SQ SCH ×4 (08:00→21:26)
[2017-12-09] MEDS: BUDESONIDE-FORMOTEROL 160/4.5 MCG INHALER INH SCH ×2 (08:27→21:27)
[2017-12-09] MEDS: HEPARIN SODIUM - SQ 10,000 UNITS/ML VIAL SQ SCH ×2 (08:27→21:27)
[2017-12-09] MEDS: SODIUM CHLORIDE 0.9% FLUSH 10 ML FLUSH IV FLUSH SCH ×2 (08:27→21:27)
[2017-12-09] MEDS: DOCUSATE SODIUM 50 MG/SENNA 8.6 MG TAB PO SCH ×2 (08:28→21:26)
[2017-12-09] MEDS: CHOLECALCIFEROL (VIT D3) 1000 UNIT TAB PO SCH (08:28)
[2017-12-09] MEDS: ASPIRIN EC 81 MG TABEC PO SCH (08:28)
[2017-12-09] MEDS: FUROSEMIDE 40 MG/4 ML VIAL IV PUSH SCH ×2 (08:28→17:18)
--- NOTE | 2017-12-09 09:45 | ECHRPT ---
Indication: CONCLUSIONS Normal left ventricular size. Estimated left ventricular function 65-60% Mild mitral valve regurgitation. Severe aortic valve stenosis. Aortic valve area is 0.73 cm. Aortic valve mean gradient is 42 mmHg. AV max 417 cm/s AI mild There is mild tricuspid valve regurgitation. The estimated pulmonary arterial pressure is 63.3 mmHg. BP: / HR: Rhythm: MEASUREMENTS (Male / Female) Normal Values Technical Quality:Good 2D ECHO LV Diastolic Diameter PLAX 4.6 cm 4.2 - 5.9 / 3.9 - 5.3 cm LV Systolic Diameter PLAX 3.1 cm IVS Diastolic Thickness 1.2 cm 0.6 - 1.0 / 0.6 - 0.9 cm LVPW Diastolic Thickness 0.9 cm 0.6 - 1.0 / 0.6 - 0.9 cm LV Relative Wall Thickness 0.4 RV Internal Dim ED PLAX 3.0 cm M-MODE Aortic Root Diameter MM 3.5 cm LA Ao Ratio MM 1.2 DOPPLER AV Peak Velocity 417.0 cm/s AV Peak Gradient 69.6 mmHg AV Mean Gradient 42.0 mmHg AV Velocity Time Integral 101.0 cm AI Peak Velocity 316.0 cm/s AI Peak Gradient 39.9 mmHg AI Pressure Half Time 477.0 ms LVOT Peak Velocity 70.7 cm/s LVOT Peak Gradient 2.0 mmHg LVOT Velocity Time Integral 16.3 cm AV Area Cont Eq vti 0.7 cm AV Area Cont Eq pk 0.8 cm LV E' Lateral Velocity 5.9 cm/s LV E' Septal Velocity 5.9 cm/s TR Peak Velocity 365.0 cm/s TR Peak Gradient 53.3 mmHg Right Atrial Pressure 10.0 mmHg Pulmonary Artery Systolic Pressu 63.3 mmHg Right Ventricular Systolic Press 63.3 mmHg FINDINGS LEFT VENTRICLE Normal left ventricular size. RIGHT VENTRICLE Normal right ventricular size and systolic function. LEFT ATRIUM The left atrial size is normal. RIGHT ATRIUM The right atrial size is normal. ATRIAL SEPTUM Normal atrial septal thickness without atrial level shunting by limited color doppler interrogation. AORTA The aortic root and proximal ascending aorta are normal in size on limited imaging. MITRAL VALVE Structurally normal mitral valve. Mild mitral valve regurgitation. AORTIC VALVE Moderate aortic valve stenosis. Aortic valve area is 0.73 cm. Aortic valve mean gradient is 42 mmHg. AV max 417 cm/s AI mild TRICUSPID VALVE Structurally normal tricuspid valve. There is mild tricuspid valve regurgitation. The estimated pulmonary arterial pressure is 63.3 mmHg. PULMONARY VALVE No pulmonary valve regurgitation or stenosis. VESSELS The inferior vena cava is normal in size. PERICARDIUM No pericardial effusion. Ej Milsl MD Edited by: [email or web address] CV Expanded Function Dental Assistant (Electronically Signed) Final Date:07 December 2017 17:01 Amended: 09 December 2017 09:44
[2017-12-09] MEDS: cefTRIAXone INJ 1,000 MG in SODIUM CHLORIDE 0.9% INJ 100 ML IV SCH (09:56)
--- NOTE | 2017-12-09 10:32 | HHI.PR ---
Subjective Remarks No BiPAP needed overnight. Sepsis is resolved. She is continuing to improve in regards to her CHF exacerbation with pneumonia. Stable for transfer to Med/ Surg. Objective Vital Signs Date Time Temp Pulse Resp B/P (MAP) Pulse Ox O2 Delivery O2 Flow Rate FiO2 12/09/17 10:00 102 12/09/17 09:00 94 12/09/17 08:00 98 12/09/17 07:15 89 12/09/17 07:00 92 Room Air 12/09/17 07:00 98.1 86 20 135/65 (88) 92 12/09/17 06:00 82 12/09/17 05:06 84 12/09/17 04:01 75 12/09/17 03:15 97 Room Air 12/09/17 03:00 98.6 87 17 134/64 (87) 97 12/09/17 03:00 74 12/09/17 02:00 87 12/09/17 01:00 79 12/09/17 00:00 81 12/08/17 23:08 98.4 86 16 125/61 (82) 96 12/08/17 23:07 96 Room Air 12/08/17 23:00 82 12/08/17 22:00 79 12/08/17 21:04 108 12/08/17 20:35 92 21 12/08/17 20:08 81 12/08/17 19:33 98.2 78 17 114/65 (81) 93 12/08/17 19:33 93 Room Air 12/08/17 19:00 89 12/08/17 18:00 90 12/08/17 17:00 94 12/08/17 16:00 98 12/08/17 15:16 93 Room Air 12/08/17 15:15 97.7 75 18 106/57 (73) 92 12/08/17 15:00 83 12/08/17 14:00 86 12/08/17 13:00 85 12/08/17 12:00 81 12/08/17 11:17 97.8 76 18 124/59 (80) 93 12/08/17 11:01 93 Room Air 12/08/17 11:00 73 I/O 12/08/17 12/08/17 12/08/17 12/09/17 12/09/17 12/09/17 07:00 15:00 23:00 07:00 15:00 23:00 Intake Total 240 ml 720 ml 240 ml Output Total 1050 ml 1050 ml 950 ml Balance -810 ml -330 ml -710 ml Intake Oral 240 ml 720 ml 240 ml Output Urine Total 1050 ml 1050 ml 950 ml Result Diagram: 12/09/17 0447 12/09/17 0432 Objective Remarks GENERAL: NAD, A&Ox3 HEAD: Normocephalic. NECK: Supple, trachea midline. No lymphadenopathy. EYES: No scleral icterus. No injection or drainage. CARDIOVASCULAR: Regular rate and rhythm without murmurs, gallops, or rubs. RESPIRATORY: Breath sounds equal bilaterally. No accessory muscle use. GASTROINTESTINAL: Abdomen soft, non-tender, nondistended. MUSCULOSKELETAL: No cyanosis, or edema. SKIN: Warm and dry. Petechial purpura skin NEURO: No focal neurological deficitis. A/P Problem List: (1) DM (diabetes mellitus) ICD Code: E11.9 - Type 2 diabetes mellitus without complications (2) Tobacco abuse ICD Code: Z72.0 - Tobacco use (3) Leukocytosis ICD Code: D72.829 - Elevated white blood cell count, unspecified (4) CHF (congestive heart failure) ICD Code: I50.9 - Heart failure, unspecified (5) Acute respiratory failure ICD Code: J96.00 - Acute respiratory failure, unspecified whether with hypoxia or hypercapnia Assessment and Plan 87-year-old female admitted secondary to pneumonia with CHF exacerbation and sepsis resulting in acute respiratory distress and failure. Now off BiPAP. No BiPAP overnight. Stable for transfer out of [facility] to [facility]. Labs reviewed. Electronic disturbance. Continue to monitor labs during diuresis. Continue to monitor renal function. Continue working with physical therapy. Patient may be stable for discharge in 1-2 days. Acute respiratory failure Respiratory distress Hypoxia Improving Continue duo nebs Continue oxygen support Presently off BiPAP Treat infection Acute on Chronic, Systolic CHF Triggered by Pneumonia Treat Pneumonia Diuresis Follow for improvement Echocardiogram Pneumonia Leukocytosis Continue Levaquin Probiotic Patient counseled to quit smoking Nicotine dependence He has been counseled to quit smoking Diabetes mellitus type 2 Follow blood sugars Insulin sliding scale Diabetic diet DVT prophylaxis Eliquis Discharge planning Patient may be stable for discharge in 1-2 days. Alfonzo García MD Dec 09, 2017 10:32
[2017-12-09] MEDS: AZITHROMYCIN INJ 500 MG in SODIUM CHLOR 0.9% 250 ML INJ 250 ML IV SCH (11:00)
[2017-12-09] MEDS: ATORVASTATIN 40 MG TAB PO SCH (21:27)
[2017-12-10] VITALS (9 sets, daily range): BP systolic 140–161; BP diastolic 60–70; PULSE 69–89; RESP 17–18; TEMP 97.7–98.5; O2SAT 93–97
[2017-12-10] MEDS ORDERED: MELATONIN 5 MG TAB PO PRN (00:30)
[2017-12-10 04:10] LABS: AUTOMATED NEUTROPHIL # 1.2 TH/MM3 (1.8-7.7); BASOPHIL # 0.2 TH/MM3 (0-0.2); BASOPHIL % 4.9 % (0.0-2.0); EOSINOPHIL # 0.5 TH/MM3 (0-0.4); EOSINOPHIL % 11.2 % (0.0-4.0); HEMATOCRIT 40.2 % (35.0-46.0); HEMOGLOBIN 13.1 GM/DL (11.6-15.3); LYMPH % 34.2 % (9.0-44.0); LYMPHOCYTE # 1.5 TH/MM3 (1.0-4.8); MEAN CELL VOLUME 74.8 FL (80.0-100.0); MEAN CORPUSCULAR HEMOGLOBIN 24.4 PG (27.0-34.0); MEAN CORPUSCULAR HGB CONC 32.6 % (32.0-36.0); MEAN PLATELET VOLUME 9.1 FL (7.0-11.0); MONO % 20.9 % (0.0-8.0); MONOCYTE # 0.9 TH/MM3 (0-0.9); NEUT % 28.8 % (16.0-70.0); PLATELET COUNT 137 TH/MM3 (150-450); RED BLOOD COUNT 5.37 MIL/MM3 (4.00-5.30); RED CELL DISTRIBUTION WIDTH 18.9 % (11.6-17.2); WHITE BLOOD COUNT 4.3 TH/MM3 (4.0-11.0)
[2017-12-10 04:31] LABS: ALBUMIN 2.9 GM/DL (3.4-5.0); AST (GOT) 13 U/L (15-37); BICARBONATE 29.1 MEQ/L (21.0-32.0); BLOOD UREA NITROGEN 35 MG/DL (7-18); CALCIUM 9.1 MG/DL (8.5-10.1); CHLORIDE 99 MEQ/L (98-107); CREATININE 1.18 MG/DL (0.50-1.00); GLOMERULAR FILTRATION RATE 44 ML/MIN (>89); GLUCOSE,RANDOM 138 MG/DL (74-106); SODIUM (NA) 137 MEQ/L (136-145)
[2017-12-10 04:34] LABS: ALKALINE PHOSPHATASE 82 U/L (45-117); ALT (GPT) 23 U/L (10-53); TOTAL BILIRUBIN ADULT 0.5 MG/DL (0.2-1.0); TOTAL PROTEIN 6.9 GM/DL (6.4-8.2)
[2017-12-10] MEDS: RESP: ALBUTEROL 2.5 MG/IPRATROPIUM 0.5 MG NEB (SCH) NEB ×2 (08:43→11:55)
[2017-12-10] MEDS: BUDESONIDE-FORMOTEROL 160/4.5 MCG INHALER INH SCH (09:00)
[2017-12-10] MEDS: SODIUM CHLORIDE 0.9% FLUSH 10 ML FLUSH IV FLUSH SCH (09:00)
[2017-12-10] MEDS ORDERED: AUGM875T3 PO (09:44)
[2017-12-10] MEDS ORDERED: LACTTAB8 PO (09:44)
[2017-12-10] MEDS ORDERED: AZIT500T2 PO (09:44)
--- NOTE | 2017-12-10 09:47 | HHI.DS ---
Discharge Summary Admission Date Dec 07, 2017 at 00:39 Discharge Date: Dec 10, 2017 Admitting Diagnosis chf (1) Acute respiratory failure ICD Code: J96.00 - Acute respiratory failure, unspecified whether with hypoxia or hypercapnia Diagnosis: Principal (2) CHF (congestive heart failure) ICD Code: I50.9 - Heart failure, unspecified Diagnosis: Principal (3) Leukocytosis ICD Code: D72.829 - Elevated white blood cell count, unspecified Diagnosis: Principal (4) DM (diabetes mellitus) ICD Code: E11.9 - Type 2 diabetes mellitus without complications Diagnosis: Secondary (5) Tobacco abuse ICD Code: Z72.0 - Tobacco use Diagnosis: Secondary Procedures None Brief History - From Admission This is an 87-year-old female with PMH of HTN, Hyperlipidemia, CHF (Unknown EF) , A. fib on Eliquis, CVA, Tobacco Abuse and COPD who was brought to the ER by EMS secondary to severe SOB. States SOB started last night, has gotten progressively more severe today, worse w/ movement. No fever, chills, chest pain or cough. Does note bilateral lower extremity edema. Per EMS, O2 sat 88% on RA, started on CPAP, transitioned to BIPAP on arrival to ER. S/p Lasix 80mg IV by EMS. On arrival, BP 197/91, HR 83, O2 sat 97% on BiPAP, 60% FiO2, Afebrile. WBC 14.0, 30% bands. Creatinine 1.07. BS 229. BNP 600. INR 1.1. UA negative. ABG essentially unremarkable on BiPAP. CXR with mild failure suspected, possible mass or focal pneumonia at right base. S/p Levaquin in ER. CBC/BMP: 12/10/17 0316 12/10/17 0316 Significant Findings Laboratory Tests Test 12/08/17 03:35 12/09/17 04:32 12/09/17 04:47 12/10/17 03:16 White Blood Count 3.9 TH/MM3 (4.0-11.0) 3.9 TH/MM3 (4.0-11.0) Mean Corpuscular Volume 75.5 FL (80.0-100.0) 74.4 FL (80.0-100.0) 74.8 FL (80.0-100.0) Mean Corpuscular Hemoglobin 24.6 PG (27.0-34.0) 25.1 PG (27.0-34.0) 24.4 PG (27.0-34.0) Red Cell Distribution Width 19.3 % (11.6-17.2) 19.2 % (11.6-17.2) 18.9 % (11.6-17.2) Platelet Count 121 TH/MM3 (150-450) 129 TH/MM3 (150-450) 137 TH/MM3 (150-450) Monocytes (%) (Auto) 20.8 % (0.0-8.0) 21.2 % (0.0-8.0) 20.9 % (0.0-8.0) Eosinophils (%) (Auto) 8.3 % (0.0-4.0) 9.7 % (0.0-4.0) 11.2 % (0.0-4.0) Basophils (%) (Auto) 3.7 % (0.0-2.0) 4.5 % (0.0-2.0) 4.9 % (0.0-2.0) Neutrophils # (Auto) 1.0 TH/MM3 (1.8-7.7) 1.0 TH/MM3 (1.8-7.7) 1.2 TH/MM3 (1.8-7.7) Blood Urea Nitrogen 35 MG/DL (7-18) 34 MG/DL (7-18) 35 MG/DL (7-18) Creatinine 1.30 MG/DL (0.50-1.00) 1.13 MG/DL (0.50-1.00) 1.18 MG/DL (0.50-1.00) Random Glucose 117 MG/DL (74-106) 138 MG/DL (74-106) Albumin 2.6 GM/DL (3.4-5.0) 2.8 GM/DL (3.4-5.0) 2.9 GM/DL (3.4-5.0) Estimat Glomerular Filtration Rate 39 ML/MIN (>89) 46 ML/MIN (>89) 44 ML/MIN (>89) Aspartate Amino Transf (AST/SGOT) 12 U/L (15-37) 13 U/L (15-37) Red Blood Count 5.37 MIL/MM3 (4.00-5.30) Eosinophils # (Auto) 0.5 TH/MM3 (0-0.4) PE at Discharge GENERAL: Pleasant elderly white female in no acute distress, currently on nasal cannula HEENT: PERRLA, EOMI. No scleral icterus or conjunctival pallor. No lid lag or facial droop. CARDIOVASCULAR: Irregularly irregular with systolic murmur noted RESPIRATORY: No obvious rhonchi. Decreased Breath sounds equal bilaterally. GASTROINTESTINAL: Abdomen soft, non-tender, nondistended. BS normal. MUSCULOSKELETAL: Extremities without clubbing, cyanosis, or edema. No obvious deformities. NEUROLOGICAL: Awake, alert and oriented x4. No focal neurologic deficits. Moving both upper and lower extremities spontaneously. Hospital Course Mrs. Parker is an 87-year-old female. She was admitted secondary to CHF exacerbation with pneumonia. Treatments with diuresis and antibiotics have caused her to gradually improve. She is now fluid balanced and her breathing has returned back to her baseline. She has slight weakness compared to her prior baseline functional and walking long distance is. She is stable for discharge back to her house today with continuation of oral antibiotic. All other medications will return back to baseline dosings. Home health with physical therapy arranged. Pt Condition on Discharge: Stable Discharge Disposition: Disch w/ Home Health Serv Discharge Time: <= 30 minutes Discharge Instructions DIET: Follow Instructions for: As Tolerated, No Restrictions Activities you can perform: Regular-No Restrictions Other Activity Instructions: Use Walker at home Follow up Referrals: PCP Follow-up - 2 Weeks New Medications: Amoxicillin-Clavulanate (Augmentin) 875-125 Mg Tab 1 TAB PO BID for Infection, #10 TAB 0 Refills Azithromycin (Azithromycin) 500 Mg Tab 500 MG PO DAILY for Infection, #5 TAB 0 Refills Lactobacillus Acidophilus (Lactobacillus Acidophilus) 1 Billion Cell Tab 1 TAB PO TIDAC for Nutritional Supplement, #30 TAB 0 Refills Continued Medications: Apixaban (Eliquis) 2.5 Mg Tab 2.5 MG PO BID for Blood Clot Prevention, TAB [address] (Aspirin 81) 81 Mg Tabdr 81 MG PO DAILY, TAB 0 Refills Atorvastatin (Atorvastatin) 40 Mg Tab 40 MG PO HS for Cholesterol Management, #30 TAB 0 Refills B Complex W-C No.20/Folic Acid (Mynephrocaps Softgel) 1 Mg Capsule Benazepril (Benazepril) 10 Mg Tab 10 MG PO DAILY for Blood Pressure Management, #30 TAB 0 Refills Cholecalciferol (D3 Super Strength) 2,000 Unit Cap 2000 UNITS PO DAILY for Nutritional Supplement, #30 CAP 0 Refills Ipratropium-Albuterol Inh (Combivent Respimat Inh) 20-100 Senior Living/Act Aero 1 PUFF INH QID for Asthma Management, #1 INHALER 0 Refills Krill/Om-3/Dha/Epa/Phospho/Ast (Krill Oil 1,000 mg Softgel) 1,000-170MG Capsule Metoprolol Tartrate (Metoprolol Tartrate) 50 Mg Tab 50 MG PO BID, #60 TAB 0 Refills Multiple Vitamins W/ Minerals (Centrum Silver Adult 50+) 0.4 Mg-300 Mcg-250 Mcg Tab Potassium Chloride ER (Potassium Chloride ER) 10 Meq Cap 10 MEQ PO DAILY for Electrolyte Replacement, #30 CAP 0 Refills Alfonzo García MD Dec 10, 2017 09:47
--- NOTE | 2017-12-10 09:49 | HHI.FF ---
Face to Face Verification Diagnosis: (1) CHF exacerbation (2) Systolic CHF (3) Pneumonia (4) CHF (congestive heart failure) (5) Acute respiratory failure Physical Therapy Order: Evaluate and Treat Home Health Nursing Order: Signs/symptoms of disease process CHF education Nursing assessment with vital signs I have seen patient Aurea Parker on 12/10/17. My clinical findings support the need for the requested home health care services because: Ltd mobility - disease progression Deconditioned w/ increased weakness I certify that my clinical findings support that this patient is homebound because: Unsteady gait/balance Unable to use public transportation Alfonzo García MD Dec 10, 2017 09:49
[2017-12-10] MEDS: FUROSEMIDE 40 MG/4 ML VIAL IV PUSH SCH (09:52)
[2017-12-10] MEDS: HEPARIN SODIUM - SQ 10,000 UNITS/ML VIAL SQ SCH (09:52)
[2017-12-10] MEDS: ASPIRIN EC 81 MG TABEC PO SCH (09:52)
[2017-12-10] MEDS: CHOLECALCIFEROL (VIT D3) 1000 UNIT TAB PO SCH (09:53)
[2017-12-10] MEDS: DOCUSATE SODIUM 50 MG/SENNA 8.6 MG TAB PO SCH (09:53)
[2017-12-10] MEDS: cefTRIAXone INJ 1,000 MG in SODIUM CHLORIDE 0.9% INJ 100 ML IV SCH (09:54)
--- NOTE | 2017-12-10 13:36 | HHI.PR ---
Subjective Remarks Medically clear for discharge yesterday. An process of transfer to inpatient rehabilitation today. No complaints from the patient. Objective Vital Signs Date Time Temp Pulse Resp B/P (MAP) Pulse Ox O2 Delivery O2 Flow Rate FiO2 12/10/17 07:43 69 12/10/17 07:43 98.4 69 18 161/70 (100) 95 12/10/17 06:00 81 12/10/17 05:05 74 12/10/17 04:00 76 12/10/17 03:18 97.7 78 17 140/60 (86) 93 12/10/17 03:02 82 12/10/17 02:00 85 12/10/17 01:00 89 12/09/17 23:00 95 12/09/17 23:00 97.9 84 17 143/61 (88) 95 12/09/17 22:03 86 12/09/17 21:00 91 12/09/17 20:00 88 12/09/17 19:32 97.7 99 17 152/65 (94) 92 12/09/17 19:00 100 12/09/17 18:00 114 12/09/17 17:00 80 12/09/17 16:00 100 12/09/17 15:00 84 12/09/17 15:00 95 Room Air 12/09/17 15:00 98.4 95 20 147/66 (93) 95 12/09/17 14:00 100 I/O 12/09/17 12/09/17 12/09/17 12/10/17 12/10/17 12/10/17 07:00 15:00 23:00 07:00 15:00 23:00 Intake Total 240 ml 720 ml 240 ml Output Total 950 ml 900 ml 1200 ml Balance -710 ml -180 ml -960 ml Intake Oral 240 ml 720 ml 240 ml Output Urine Total 950 ml 900 ml 1200 ml # Bowel Movements 0 1 Result Diagram: 12/10/1731512/10/17 0316 Objective Remarks GENERAL: NAD, A&Ox3 HEAD: Normocephalic. NECK: Supple, trachea midline. No lymphadenopathy. EYES: No scleral icterus. No injection or drainage. CARDIOVASCULAR: Regular rate and rhythm without murmurs, gallops, or rubs. RESPIRATORY: Breath sounds equal bilaterally. No accessory muscle use. GASTROINTESTINAL: Abdomen soft, non-tender, nondistended. MUSCULOSKELETAL: No cyanosis, or edema. SKIN: Warm and dry. Petechial purpura skin NEURO: No focal neurological deficitis. A/P Problem List: (1) DM (diabetes mellitus) ICD Code: E11.9 - Type 2 diabetes mellitus without complications (2) Tobacco abuse ICD Code: Z72.0 - Tobacco use (3) Leukocytosis ICD Code: D72.829 - Elevated white blood cell count, unspecified (4) CHF (congestive heart failure) ICD Code: I50.9 - Heart failure, unspecified (5) Acute respiratory failure ICD Code: J96.00 - Acute respiratory failure, unspecified whether with hypoxia or hypercapnia Assessment and Plan 87-year-old female admitted secondary to pneumonia with CHF exacerbation and sepsis resulting in acute respiratory distress and failure. Medically cleared yesterday and in process of transfer to inpatient rehabilitation today. Acute respiratory failure Respiratory distress Hypoxia Improving Continue duo nebs Continue oxygen support Presently off BiPAP Treat infection Acute on Chronic, Systolic CHF Triggered by Pneumonia Treat Pneumonia Diuresis Follow for improvement Echocardiogram Pneumonia Leukocytosis Continue Levaquin Probiotic Patient counseled to quit smoking Nicotine dependence He has been counseled to quit smoking Diabetes mellitus type 2 Follow blood sugars Insulin sliding scale Diabetic diet DVT prophylaxis Eliquis Discharge planning Discharge today. Alfonzo García MD Dec 10, 2017 13:36
== END 2017-12-10 14:06 | disposition home health service (06) | DRG 871 ==
LOC: NEPC 21:55 → NEDA 12-07 00:39 → NEDH 12-07 07:19 → HCPC 12-07 08:13
PROVIDERS: ADMIT Hospitalist; ATTEND Hospitalist
PROC: 5A09357 Assistance with Respiratory Ventilation, Less than 24 Consecutive Hours, Continuous Positive Airway Pressure (ICD-10-PCS; principal; 2017-12-06)
DX: A41.9 Sepsis, unspecified organism (principal); I50.23 Acute on chronic systolic (congestive) heart failure; J96.00 Acute respiratory failure, unspecified whether with hypoxia or hypercapnia; J18.9 Pneumonia, unspecified organism; I11.0 Hypertensive heart disease with heart failure; J44.0 Chronic obstructive pulmonary disease with (acute) lower respiratory infection; I48.91 Unspecified atrial fibrillation; E11.9 Type 2 diabetes mellitus without complications; Z79.02 Long term (current) use of antithrombotics/antiplatelets; F17.210 Nicotine dependence, cigarettes, uncomplicated; H91.90 Unspecified hearing loss, unspecified ear; Z86.73 Personal history of transient ischemic attack (TIA), and cerebral infarction without residual deficits
CPT/HCPCS: 36600; 51702; 71045; 71260; 80053; 81001; 82550; 82805; 82948; 83036; 83735; 83880; 84484; 85007; 85025; 85027; 85610; 85730; 86403; 87040; 87070; 87205; 93005; 93306; 94002; 94003; 94640; 94664; 96365; J0456; J0696; J1644; J1815; J1940; J1956; J7050; Q9967

== ENCOUNTER 2017-12-22 07:17 | Inpatient (IN) | payer OTHER, MEDICARE ==
[2017-12-22] VITALS (11 sets, daily range): BP systolic 121–193; BP diastolic 58–83; PULSE 53–89; RESP 16–20; TEMP 98–98.7; O2SAT 92–95
[~2017-12-22] VITALS: Ht 172.7 cm; Wt 77.3 kg
[~2017-12-22 07:17] MED LIST changes: +APIX2.5T PO; +ASPI1TAB57 PO; +AUGM875T3 PO; +AZIT500T2 PO; +B COCAP; -COLY4000S PO; +D200CAP PO; -FURO1TAB62 PO; +IPRAAER INH; +KRIL1CAP; +LACTTAB8 PO; +METO50TA PO; +MULT1TAB; +POTA10CA PO
--- NOTE | 2017-12-22 07:39 | RADRPT ---
EXAM DATE/TIME: 12/22/2017 07:24 [facility] COMPARISON: CHEST SINGLE AP, December 06, 2017, 22:05. INDICATIONS : Short of breath. MEDICAL HISTORY : Chronic obstructive pulmonary disease. Cerebrovascular disease. Hypertension. SURGICAL HISTORY : Cholecystectomy. Hysterectomy. ENCOUNTER: Initial ACUITY: 2 days PAIN SCORE: 0/10 LOCATION: Bilateral chest FINDINGS: Moderate severity diffuse interstitial opacities are again noted and slightly worse. Mild atelectasis seen at the bases. No large effusion demonstrated. Very small apical pneumothorax is suspected on th e right. There is a curvilinear reflection projecting over the left lung apex which I believe is most likely a skin fold. There are some lung markings peripheral to this but a small loculated pneumothor ax not entirely excludable based on the appearance. CONCLUSION: 1. Moderate severity diffuse interstitial opacities and mild bibasilar atelectasis. 2. Small apical pneumothorax probable on the right and possible on the left. Doroteo Rico MD on December 22, 2017 at 7:33 Board Certified Radiologist. This report was verified electronically.
--- NOTE | 2017-12-22 07:53 | PD ---
HPI Chief Complaint: Respiratory Symptoms Time Seen by Provider: 07:42 Travel History International Travel<30 days: No Contact w/Intl Traveler<30days: No Traveled to known affect area: No History of Present Illness HPI Patient is an 87-year-old female presents emergency department for evaluation of shortness of breath and orthopnea which came on suddenly last night. Patient has a recent history of being admitted to the hospital for atrial fibrillation with CHF, she was given Lasix while in the hospital and on discharge she was discharged to her doctor who has her on 20 mg of Lasix every other day. She has been taking this medication as prescribed and her niece gave her an additional dose 20 mg of Lasix p.o. prior to arrival. Patient denies any chest pain. She has been taking her Eliquis as prescribed. States symptoms are moderate, worsened with supine position, relieved with oxygen, gradually worsening, context as above, associated signs or symptoms as above. PFSH Past Medical History Hx Anticoagulant Therapy: No Cancer: No Cardiovascular Problems: Yes (HTN, CHOL) High Cholesterol: Yes COPD: Yes Cerebrovascular Accident: Yes (CVA) Diabetes: No Diminished Hearing: Yes ([place]) Endocrine: No Genitourinary: No Hypertension: Yes Immune Disorder: No Implanted Vascular Access Dvce: No Musculoskeletal: No Neurologic: No Psychiatric: No Reproductive: No Respiratory: Yes Past Surgical History Cholecystectomy: Yes Gynecologic Surgery: Yes Hysterectomy: Yes Other Surgery: Yes Social History Alcohol Use: No Tobacco Use: Yes (She is down to 2 cigarettes a day but has a 10-ymbj-bmcd history) Substance Use: No Allergies-Medications (Allergen,Severity, Reaction): Coded Allergies: codeine (Unverified Allergy, Mild, Constipation, 12/06/17) Reported Meds & Prescriptions Reported Meds & Active Scripts Active Lactobacillus Acidophilus 1 Billion Cell Tab 1 Tab PO TIDAC Reported Metoprolol Tartrate 50 Mg Tab 50 Mg PO BID Eliquis (Apixaban) 2.5 Mg Tab 2.5 Mg PO BID Mynephrocaps Softgel (B Complex W-C No.20/Folic Acid) 1 Mg Capsule Krill Oil 1,000 mg Softgel (Krill/Om-3/Dha/Epa/Phospho/Ast) 1,000-170MG Capsule Aspirin 81 (Aspirin) 81 Mg Tabdr 81 Mg PO DAILY D3 Super Strength (Cholecalciferol) 2,000 Unit Cap 2,000 Units PO DAILY Centrum Silver Adult 50+ (Multiple Vitamins W/ Minerals) 0.4 Mg-300 Mcg-250 Mcg Tab Combivent Respimat Inh (Ipratropium-Albuterol Inh) 20-100 Assisted/Act Aero 1 Puff INH QID Potassium Chloride ER (Potassium Chloride) 10 Meq Cap 10 Meq PO DAILY Atorvastatin (Atorvastatin Calcium) 40 Mg Tab 40 Mg PO HS Benazepril (Benazepril HCl) 10 Mg Tab 10 Mg PO DAILY Review of Systems Except as stated in HPI: all other systems reviewed are Neg Physical Exam Narrative GENERAL: Well-developed well-nourished in no obvious distress quite pleasant SKIN: Focused skin assessment warm/dry. HEAD: Atraumatic. Normocephalic. EYES: Pupils equal and round. No scleral icterus. No injection or drainage. ENT: No nasal bleeding or discharge. Mucous membranes pink and moist. NECK: Trachea midline. No JVD. CARDIOVASCULAR: Regular rate and rhythm. No murmur appreciated. RESPIRATORY: Mildly tachypneic, no retractions, lungs have bibasilar rales. Breath sounds equal bilaterally. GASTROINTESTINAL: Abdomen soft, non-tender, nondistended. Hepatic and splenic margins not palpable. MUSCULOSKELETAL: No obvious deformities. No clubbing. No cyanosis. No edema. NEUROLOGICAL: Awake and alert. No obvious cranial nerve deficits. Motor grossly within normal limits. Normal speech. PSYCHIATRIC: Appropriate mood and affect; insight and judgment normal. Data Data Last Documented VS Vital Signs Date Time Temp Pulse Resp B/P (MAP) Pulse Ox O2 Delivery O2 Flow Rate FiO2 12/22/17 10:35 57 16 170/76 (107) 94 Nasal Cannula 2.00 12/22/17 07:26 98.1 Orders Orders Chest, Single Ap (12/22/17 07:20) Basic Metabolic Panel (Bmp) (12/22/17 07:50) B-Type Natriuretic Peptide (12/22/17 07:50) Ckmb (Isoenzyme) Profile (12/22/17 07:50) Complete Blood Count With Diff (12/22/17 07:50) Magnesium (Mg) (12/22/17 07:50) Prothrombin Time / Inr (Pt) (12/22/17 07:50) Act Partial Throm Time (Ptt) (12/22/17 07:50) Troponin I (1/30/18 07:50) Ecg Monitoring (12/22/17 07:50) Iv Access Insert/Monitor (12/22/17 07:50) Oximetry (12/22/17 07:50) Oxygen Administration (12/22/17 07:50) Sodium Chloride 0.9% Flush (Ns Flush) (12/22/17 08:00) Ct Pulmonary Angiogram (12/22/17 ) CKMB (12/22/17 08:22) CKMB% (12/22/17 08:22) Iodixanol 320 Inj (Rad Ct) (Visipaque 32 (12/22/17 09:26) Furosemide Inj (Lasix Inj) (12/22/17 10:15) Admit Order (Ed Use Only) (12/22/17 ) Labs Laboratory Tests Test 12/22/17 08:22 12/22/17 09:05 Prothrombin Time 10.3 SEC Prothromb Time International Ratio 1.0 RATIO Activated Partial Thromboplast Time 23.9 SEC Blood Urea Nitrogen 14 MG/DL Creatinine 1.30 MG/DL Random Glucose 114 MG/DL Calcium Level 8.8 MG/DL Magnesium Level 2.4 MG/DL Sodium Level 137 MEQ/L Potassium Level 5.7 MEQ/L Chloride Level 105 MEQ/L Carbon Dioxide Level 25.5 MEQ/L Anion Gap 7 MEQ/L Estimat Glomerular Filtration Rate 39 ML/MIN Total Creatine Kinase 104 U/L Creatine Kinase MB 2.5 NG/ML Troponin I LESS THAN 0.02 NG/ML B-Type Natriuretic Peptide 768 PG/ML White Blood Count 8.5 TH/MM3 Red Blood Count 5.73 MIL/MM3 Hemoglobin 13.5 GM/DL Hematocrit 43.6 % Mean Corpuscular Volume 76.1 FL Mean Corpuscular Hemoglobin 23.6 PG Mean Corpuscular Hemoglobin Concent 31.0 % Red Cell Distribution Width 18.9 % Platelet Count 177 TH/MM3 Mean Platelet Volume 10.7 FL Neutrophils (%) (Auto) 57.4 % Lymphocytes (%) (Auto) 24.5 % Monocytes (%) (Auto) 6.1 % Eosinophils (%) (Auto) 6.2 % Basophils (%) (Auto) 5.8 % Neutrophils # (Auto) 4.9 TH/MM3 Lymphocytes # (Auto) 2.1 TH/MM3 Monocytes # (Auto) 0.5 TH/MM3 Eosinophils # (Auto) 0.5 TH/MM3 Basophils # (Auto) 0.5 TH/MM3 CBC Comment AUTO DIFF MDM Medical Decision Making Medical Screen Exam Complete: Yes Emergency Medical Condition: Yes Differential Diagnosis PE, pneumonia, CHF exacerbation, pneumothorax Narrative Course Patient roomed in the emergency department, initially chest x-ray shows increased pulmonary markings consistent with pulmonary vascular congestion and some mild pulmonary edema. Patient has bilateral pneumothoraces which are small at the apex. Patient appears well and in no obvious distress therefore we will pursue CAT scan to determine the extent of the pneumothorax he prior to treatment. Last 24 hours Impressions Chest X-Ray 12/22/17 0720 Signed Impressions: Service Date/Time: Friday, December 22, 2017 07:24 - CONCLUSION: 1. Moderate severity diffuse interstitial opacities and mild bibasilar atelectasis. 2. Small apical pneumothorax probable on the right and possible on the left. Doroteo Rico MD CT Angiography 12/22/17 0000 Signed Impressions: Service Date/Time: Friday, December 22, 2017 09:17 - CONCLUSION: 1. No evidence for pulmonary embolism. 2. Bibasilar consolidation with interlobular septal thickening and small pleural effusions likely CHF Froy Perez MD No pneumothorax seen on CAT scan probably just aligned properly with his scar tissue. Patient continues to have some shortness of breath when ambulating to the bathroom, she states that when she has been on Lasix before it dehydrates her too much, I think that given her age and the amount of fluid on her chest as well as her low sats in the 91-92 range on room air she would do well as an observation status to diuresis slowly over at least the next 24 hours. She is also hyperkalemic, the Lasix should help to lower this. Patient was discussed with Dr. Davalos for observation status and she is agreeable. Diagnosis Primary Impression: CHF exacerbation Additional Impressions: Hyperkalemia Pleural effusion Tony Escobar MD Dec 22, 2017 07:53
[2017-12-22] MEDS ORDERED: SODIUM CHLORIDE 0.9% FLUSH 10 ML FLUSH IVF PRN ×2 (08:00→13:00)
[2017-12-22 08:38] LABS: CHLORIDE 105 MEQ/L (98-107); SODIUM (NA) 137 MEQ/L (136-145)
[2017-12-22 09:01] LABS: BICARBONATE 25.5 MEQ/L (21.0-32.0); CALCIUM 8.8 MG/DL (8.5-10.1); GLUCOSE,RANDOM 114 MG/DL (74-106); MAGNESIUM 2.4 MG/DL (1.5-2.5); PROTHROMBIN TIME - PATIENT 10.3 SEC (9.8-11.6)
[2017-12-22 09:02] LABS: BLOOD UREA NITROGEN 14 MG/DL (7-18); GLOMERULAR FILTRATION RATE 39 ML/MIN (>89); TROPONIN I LESS THAN 0.02 NG/ML (0.02-0.05)
[2017-12-22 09:25] LABS: AUTOMATED NEUTROPHIL # 4.9 TH/MM3 (1.8-7.7); BASOPHIL # 0.5 TH/MM3 (0-0.2); BASOPHIL % 5.8 % (0.0-2.0); EOSINOPHIL # 0.5 TH/MM3 (0-0.4); EOSINOPHIL % 6.2 % (0.0-4.0); HEMATOCRIT 43.6 % (35.0-46.0); HEMOGLOBIN 13.5 GM/DL (11.6-15.3); LYMPH % 24.5 % (9.0-44.0); LYMPHOCYTE # 2.1 TH/MM3 (1.0-4.8); MEAN CELL VOLUME 76.1 FL (80.0-100.0); MEAN CORPUSCULAR HEMOGLOBIN 23.6 PG (27.0-34.0); MEAN PLATELET VOLUME 10.7 FL (7.0-11.0); MONO % 6.1 % (0.0-8.0); MONOCYTE # 0.5 TH/MM3 (0-0.9); NEUT % 57.4 % (16.0-70.0); PLATELET COUNT 177 TH/MM3 (150-450); RED BLOOD COUNT 5.73 MIL/MM3 (4.00-5.30); RED CELL DISTRIBUTION WIDTH 18.9 % (11.6-17.2); WHITE BLOOD COUNT 8.5 TH/MM3 (4.0-11.0)
[2017-12-22] MEDS ORDERED: IODIXANOL 320 MG/ML 10 ML VIAL (for Rad CT) IVCONTRAST ONE (09:26)
--- NOTE | 2017-12-22 09:36 | RADRPT ---
EXAM DATE/TIME: 12/22/2017 09:17 [facility] COMPARISON: CT THORAX W CONTRAST, December 07, 2017, 3:34. INDICATIONS : Short of breath. Evaluate for pulmonary embolism. IV CONTRAST: 50 cc Visipaque (iodixanol) IV RADIATION DOSE: 14.66 CTDIvol (mGy) MEDICAL HISTORY : Cerebrovascular disease. Chronic obstructive pulmonary disease. Hypercholesterolemia.Hypertension. SURGICAL HISTORY : Cholecystectomy. ENCOUNTER: Initial ACUITY: 1 day PAIN SCALE: 0/10 LOCATION: chest TECHNIQUE: Volumetric scanning of the chest was performed using a pulmonary embolism protocol MIP images were re constructed. Using automated exposure control and adjustment of the mA and/or kV according to patien t size, radiation dose was kept as low as reasonably achievable to obtain optimal diagnostic quality images. DICOM format image data is available electronically for review and comparison. Follow-up recommendations for detected pulmonary nodules are based at a minimum on nodule size and pa tient risk factors according to Fleischner Society Guidelines. FINDINGS: PULMONARY ARTERIES: No filling defects are seen in the pulmonary arteries through the segmental level. LUNGS: There is bibasilar consolidation. There is interlobular septal thickening. PLEURAE: There is are small pleural effusions bilaterally. MEDIASTINUM: There is good visualization of the great vessels of the middle mediastinum. No evidence of mediastin al or hilar adenopathy/mass. MUSCULOSKELETAL: Within normal limits for patient age. MISCELLANEOUS: The visualized upper abdominal organs demonstrate no acute abnormality. CONCLUSION: 1. No evidence for pulmonary embolism. 2. Bibasilar consolidation with interlobular septal thickening and small pleural effusions likely CHF Froy Perez MD on December 22, 2017 at 9:28 Board Certified Radiologist. This report was verified electronically.
[2017-12-22] MEDS ORDERED: FUROSEMIDE 40 MG/4 ML VIAL IV PUSH ONE (10:15)
[2017-12-22 11:17] LABS: ATYPICAL LYMPHOCYTES 10 % (0-0); BANDS 3 % (0-6); BASOPHILS 2 % (0-2); LYMPHOCYTES 17 % (9-44); MONOCYTES 11 % (0-8); NEUTROPHIL # MANUAL DIFF 4.4 TH/MM3 (1.8-7.7); POLYS (SEG NEUTROPHILS) 49 % (16-70)
[2017-12-22 11:18] LABS: OVALOCYTES 2+ (NORMAL); TOXIC GRANULATION 1+ (NORMAL)
[2017-12-22 11:19] LABS: BURR CELLS 1+ (NORMAL)
[2017-12-22] MEDS ORDERED: SODIUM CHLORIDE 0.9% FLUSH 10 ML FLUSH IV FLUSH PRN (12:30)
--- NOTE | 2017-12-22 13:25 | HHI.HP ---
[facility] Al Mendez Do, MD Admission Diagnosis CHF exacerbation. Pulmonary edema, Pleural Effusions. Diagnoses: (1) Acute on chronic diastolic congestive heart failure (2) Hyperkalemia Chief Complaint: Shortness of breath and dyspnea Travel History International Travel<30 Days: No Contact w/Intl Traveler <30 Da: No Traveled to Known Affected Are: No History of Present Illness Written by Jorge Barreto, acting as scribe for Dr. Davalos on 12/22/17 at 13: 25. This is a rather pleasant 87-year-old female with known history of hypertension, hyperlipidemia, congestive heart failure, atrial fibrillation, history CVA, tobacco use, chronic obstructive pulmonary disease who came to emergency department because of shortness of breath and dyspnea. Patient was just recently admitted the hospital on December 07, 2017 for similar symptoms. Patient states that she was discharged home with home health care, follow-up with cardiology, she was given a weight scale that reports to her primary medical doctor's office on a daily basis and she indicates that she has gained approximately 1 pound daily. She does drink at least 4 bottles of water daily, 2 big glasses of sweet tea and a cup of coffee on a daily basis. Patient does not indicate that she is to be on a fluid restriction. Patient felt that she needed to drink more fluid to flush her system. She indicates that her heart doctor did discontinue her water pill recently. She does have a follow-up with Dr. Coello tomorrow. However patient was doing quite well until she got up to lay on the couch to sleep last night when she laid down she could not breathe. She had to sit up. She could not sleep throughout the rest of my tissue short of breath. She called her niece, who came over this morning and because she was still short of breath brought her to the emergency department for evaluation. Patient had workup performed which did indicate acute congestive heart failure, hyperkalemia. Patient does indicate that she had orthopnea, does not indicate any dyspnea on exertion. She indicates that she has had increased lower extremity edema since yesterday. States that she is significantly weak where she cannot ambulate at all, she can only move with the use of her walker. States that she is rather non-mobile every day. Just sits in her [place] room. Patient was recommended observation for further evaluation and management. Review of Systems Respiratory: COMPLAINS OF: Shortness of breath Cardiovascular: COMPLAINS OF: Lower Extremity Edema, Orthopnea Neurologic: COMPLAINS OF: Abnormal gait, Poor Balance Except as stated in HPI: all other systems reviewed are Neg Past Family Social History Past Medical History Hypertension Hyperlipidemia Chronic obstructive pulmonary disease Chronic diastolic congestive heart failure Severe aortic stenosis History of atrial fibrillation History of CVA Chronic tobacco use Past Surgical History Cholecystectomy Hysterectomy Reported Medications Reported Meds & Active Scripts Active Lactobacillus Acidophilus 1 Billion Cell Tab 1 Tab PO TIDAC Reported Metoprolol Tartrate 50 Mg Tab 50 Mg PO BID Eliquis (Apixaban) 2.5 Mg Tab 2.5 Mg PO BID Mynephrocaps Softgel (B Complex W-C No.20/Folic Acid) 1 Mg Capsule Krill Oil 1,000 mg Softgel (Krill/Om-3/Dha/Epa/Phospho/Ast) 1,000-170MG Capsule Aspirin 81 (Aspirin) 81 Mg Tabdr 81 Mg PO DAILY D3 Super Strength (Cholecalciferol) 2,000 Unit Cap 2,000 Units PO DAILY Centrum Silver Adult 50+ (Multiple Vitamins W/ Minerals) 0.4 Mg-300 Mcg-250 Mcg Tab Combivent Respimat Inh (Ipratropium-Albuterol Inh) 20-100 Chcf/Act Aero 1 Puff INH QID Potassium Chloride ER (Potassium Chloride) 10 Meq Cap 10 Meq PO DAILY Atorvastatin (Atorvastatin Calcium) 40 Mg Tab 40 Mg PO HS Benazepril (Benazepril HCl) 10 Mg Tab 10 Mg PO DAILY Allergies: Coded Allergies: codeine (Unverified Allergy, Mild, Constipation, 12/06/17) Family History Reviewed and significant for mother in her 80s with heart problems. Father was shot in his 30s Social History Patient does continue to smoke cigarettes. She is down to 2 cigarettes daily since her last admission. Prior to that she smoked one pack a cigarettes a day for 70 years. Denies any alcohol or illicit drugs Physical Exam Vital Signs Vital Signs Date Time Temp Pulse Resp B/P (MAP) Pulse Ox O2 Delivery O2 Flow Rate FiO2 12/22/17 11:25 12/22/17 10:35 57 16 170/76 (107) 94 Nasal Cannula 2.00 12/22/17 08:05 95 Nasal Cannula 2.00 12/22/17 08:05 95 Nasal Cannula 2.00 12/22/17 07:26 98.1 89 16 193/83 (119) 92 Physical Exam GENERAL: Well-developed, well-nourished, in no acute distress. alert and orientated HEENT: Head is normocephalic without any lesions or masses noted. Facial features are symmetric. Eyes: Pupils equal round reactive to light. Extraocular muscles are intact. Conjunctivae were clear. Oropharyngeal: Pharynx without any erythema edema. Tongue is midline without deviation. Buccal mucosa is moist without any masses or lesions NECK: Supple without any masses. Trachea midline no deviation. No JVD, no bruits are appreciated CARDIAC: Regular rhythm, regular rate. S1/S2 are heard. 3/6 holosystolic murmur. Gallops or rubs. LUNGS: Mild expiratory wheeze noted bilaterally. No rhonchi or rales. No use of accessory muscles on inspiration or expiration. ABDOMEN: Soft, nontender. Nondistended. Bowel sounds heard in all 4 quadrants. No organomegaly or masses. Negative rebound, negative guarding EXTREMITIES: 1+ pitting edema noted in bilateral lower extremities, pulses are equal bilaterally. No cyanosis or clubbing. Patient does have discoloration of her lower extremities with multiple bruises NEUROLOGY: Mood and affect appear appropriate. Cranial nerves II through XII grossly intact. Muscle strength 5/5 in upper and lower extremities bilaterally. Deep tendon reflexes are 2+ in upper and lower extremities bilaterally. Laboratory Laboratory Tests Test 12/22/17 08:22 12/22/17 09:05 Prothrombin Time 10.3 Prothromb Time International Ratio 1.0 Activated Partial Thromboplast Time 23.9 Blood Urea Nitrogen 14 Creatinine 1.30 Random Glucose 114 Calcium Level 8.8 Magnesium Level 2.4 Sodium Level 137 Potassium Level 5.7 Chloride Level 105 Carbon Dioxide Level 25.5 Anion Gap 7 Estimat Glomerular Filtration Rate 39 Total Creatine Kinase 104 Creatine Kinase MB 2.5 Troponin I LESS THAN 0.02 B-Type Natriuretic Peptide 768 White Blood Count 8.5 Red Blood Count 5.73 Hemoglobin 13.5 Hematocrit 43.6 Mean Corpuscular Volume 76.1 Mean Corpuscular Hemoglobin 23.6 Mean Corpuscular Hemoglobin Concent 31.0 Red Cell Distribution Width 18.9 Platelet Count 177 Mean Platelet Volume 10.7 Neutrophils (%) (Auto) 57.4 Lymphocytes (%) (Auto) 24.5 Monocytes (%) (Auto) 6.1 Eosinophils (%) (Auto) 6.2 Basophils (%) (Auto) 5.8 Neutrophils # (Auto) 4.9 Lymphocytes # (Auto) 2.1 Monocytes # (Auto) 0.5 Eosinophils # (Auto) 0.5 Basophils # (Auto) 0.5 CBC Comment AUTO DIFF Differential Total Cells Counted 100 Neutrophils % (Manual) 49 Band Neutrophils % 3 Lymphocytes % 17 Monocytes % 11 Eosinophils % 8 Basophils % 2 Neutrophils # (Manual) 4.4 Differential Comment FINAL DIFF MANUAL Atypical Lymphocytes 10 Toxic Granulation 1+ Platelet Estimate NORMAL Platelet Morphology Comment NORMAL Ovalocytes 2+ Diane Cells 1+ Result Diagram: 12/22/17 0905 12/22/17 0822 Imaging Last Impressions Chest X-Ray 12/22/17 0720 Signed Impressions: Service Date/Time: Friday, December 22, 2017 07:24 - CONCLUSION: 1. Moderate severity diffuse interstitial opacities and mild bibasilar atelectasis. 2. Small apical pneumothorax probable on the right and possible on the left. Doroteo Rico MD CT Angiography 12/22/17 0000 Signed Impressions: Service Date/Time: Friday, December 22, 2017 09:17 - CONCLUSION: 1. No evidence for pulmonary embolism. 2. Bibasilar consolidation with interlobular septal thickening and small pleural effusions likely CHF Froy Perez MD Caprini VTE Risk Assessment Caprini VTE Risk Assessment: Mod/High Risk (score >= 2) Caprini Risk Assessment Model Point Value = 1 Point Value = 2 Point Value = 3 Point Value = 5 Age 41-60 Minor surgery BMI > 25 kg/m2 Swollen legs Varicose veins or History of unexplained or recurrent spontaneous Oral contraceptives or hormone replacement Sepsis (< 1 month) Serious lung disease, including pneumonia (< 1 month) Abnormal pulmonary function Acute myocardial infarction Congestive heart failure (< 1 month) History of inflammatory bowel disease Medical patient at bed rest Age 61-74 Arthroscopic surgery Major open surgery (> 45 min) Laparoscopic surgery (> 45 min) Malignancy Confined to bed (> 72 hours) Immobilizing plaster cast Central venous access Age >= 75 History of VTE Family history of VTE Factor V Leiden Prothrombin [id number] Lupus anticoagulant Anticardiolipin antibodies Elevated serum homocysteine Heparin-induced thrombocytopenia Other congenital or acquired thrombophilia Stroke (< 1 month) Elective arthroplasty Hip, pelvis, or leg fracture Acute spinal cord injury (< 1 month) Prophylaxis Regimen Total Risk Factor Score Risk Level Prophylaxis Regimen 0-1 Low Early ambulation 2 Moderate Order ONE of the following: *Sequential Compression Device (SCD) *Heparin 5000 units SQ BID 3-4 Higher Order ONE of the following medications: *Heparin 5000 units SQ TID *Enoxaparin/Lovenox 40 mg SQ daily (WT < 150 kg, CrCl > 30 mL/min) *Enoxaparin/Lovenox 30 mg SQ daily (WT < 150 kg, CrCl > 10-29 mL/min) *Enoxaparin/Lovenox 30 mg SQ BID (WT < 150 kg, CrCl > 30 mL/min) AND/OR *Sequential Compression Device (SCD) 5 or more Highest Order ONE of the following medications: *Heparin 5000 units SQ TID (Preferred with Epidurals) *Enoxaparin/Lovenox 40 mg SQ daily (WT < 150 kg, CrCl > 30 mL/min) *Enoxaparin/Lovenox 30 mg SQ daily (WT < 150 kg, CrCl > 10-29 mL/min) *Enoxaparin/Lovenox 30 mg SQ BID (WT < 150 kg, CrCl > 30 mL/min) AND *Sequential Compression Device (SCD) Assessment and Plan Assessment and Plan 87-year-old female who presented because of shortness of breath, orthopnea Acute on chronic diastolic congestive heart failure Multifactorial with patient having severe aortic stenosis, patient diuretic was discontinued, patient not following fluid restriction Will continue diuresis, consult cardiology, strict input and output, fluid restriction We'll trend cardiac enzymes rule out any acute coronary event Recent echocardiogram shows ejection fraction 65 and 60%, severe aortic valve stenosis, PA peak pressure 63.3 Objective findings include elevated BNP, lower extremity edema, radiological studies with pleural effusion, CHF, interstitial changes Hyperkalemia Multifactorial with patient now off of diuretic, on lisinopril, continuation of potassium replacement Will continue monitor potassium Potassium improved with use of diuretic Chronic obstructive pulmonary disease Continue O2 supplementation maintain O2 sats greater than 92% Duo nebs as needed Incentive spirometry chronic kidney disease stage III Renal functions appear to be stable Continue monitor renal function Avoid nephrotoxins Hypertension, hyperlipidemia, chronic atrial fibrillation, history CVA, Continue home medications DVT prevention Patient is on Eliquis Discussed Condition With Nursing staff, ER physician, patient Medical Decision Making Impression and Plan This note was transcribed by scribe [Bharati Barreto]. I, Dr. Avelina Davalos personally performed the history, physical exam, and medical decision making; and confirmed the accuracy of the information in the transcribed note. Patient seen and examined at the time of this note and is only signed at this time Authenticated by Dr. Avelina Davalos on 12/22/17 at 14:17. Jorge Barreto Dec 22, 2017 13:25 Avelina Davalos MD Dec 22, 2017 14:17
[2017-12-22] MEDS: APIXABAN 2.5 MG TABLET PO SCH ×2 (14:15→21:27)
[2017-12-22] MEDS: METOPROLOL TARTRATE 50 MG TAB PO SCH ×2 (14:15→21:00)
[2017-12-22] MEDS: LISINOPRIL 10 MG TAB PO SCH (14:15)
[2017-12-22] MEDS: ASPIRIN EC 81 MG TABEC PO SCH (14:15)
[2017-12-22] MEDS: RESP: ALBUTEROL 2.5 MG/IPRATROPIUM 0.5 MG NEB (PRN) NEB (14:40)
[2017-12-22 14:59] LABS: TROPONIN I 0.02 NG/ML (0.02-0.05)
[2017-12-22] MEDS: FUROSEMIDE 40 MG/4 ML VIAL IVP SCH (17:14)
[2017-12-22] MEDS: RESP: ALBUTEROL 2.5 MG/IPRATROPIUM 0.5 MG NEB (SCH) NEB (20:29)
[2017-12-22] MEDS: ATORVASTATIN 40 MG TAB PO SCH (21:27)
[2017-12-22] MEDS: SODIUM CHLORIDE 0.9% FLUSH 10 ML FLUSH IV FLUSH SCH (21:27)
[2017-12-22 21:28] LABS: TROPONIN I 0.02 NG/ML (0.02-0.05)
[2017-12-23] VITALS (21 sets, daily range): BP systolic 110–146; BP diastolic 50–61; PULSE 50–71; RESP 18–20; TEMP 95.8–98.4; O2SAT 54–95
[2017-12-23 06:36] LABS: HEMATOCRIT 45.1 % (35.0-46.0); HEMOGLOBIN 14.6 GM/DL (11.6-15.3); MEAN CELL VOLUME 75.6 FL (80.0-100.0); MEAN CORPUSCULAR HEMOGLOBIN 24.5 PG (27.0-34.0); MEAN CORPUSCULAR HGB CONC 32.5 % (32.0-36.0); MEAN PLATELET VOLUME 9.2 FL (7.0-11.0); PLATELET COUNT 144 TH/MM3 (150-450); RED BLOOD COUNT 5.97 MIL/MM3 (4.00-5.30); WHITE BLOOD COUNT 5.6 TH/MM3 (4.0-11.0)
[2017-12-23 07:04] LABS: BICARBONATE 31.3 MEQ/L (21.0-32.0); CALCIUM 9.5 MG/DL (8.5-10.1); CREATININE 1.4 MG/DL (0.50-1.00); MAGNESIUM 2.4 MG/DL (1.5-2.5)
[2017-12-23] MEDS: RESP: ALBUTEROL 2.5 MG/IPRATROPIUM 0.5 MG NEB (SCH) NEB ×3 (07:27→19:15)
[2017-12-23 08:14] LABS: BANDS 1 % (0-6); BASOPHILS 1 % (0-2); LYMPHOCYTES 31 % (9-44); MONOCYTES 14 % (0-8); NEUTROPHIL # MANUAL DIFF 2.7 TH/MM3 (1.8-7.7); OVALOCYTES 1+ (NORMAL); POLYS (SEG NEUTROPHILS) 48 % (16-70)
--- NOTE | 2017-12-23 08:26 | MB ---
cc: JONES ALAN MD DATE OF CONSULTATION 12/23/2017 REASON FOR CONSULTATION CHF/aortic stenosis. HISTORY OF PRESENT ILLNESS The patient is a very pleasant 87-year-old woman who I met fairly recently who has a history of accelerating CHF and aortic stenosis. She was in the hospital a couple weeks ago for CHF symptoms and was diuresed and sent home, but returned with worsening CHF failing outpatient therapy. Her recent echocardiogram shows a normal ejection fraction of 60-65%, but with severe aortic stenosis, a valve area of 0.73 cm and a mean gradient of 42 mmHg. She is feeling much better now that she has diuresed, but is quite nervous to go home again as she has now had two CHF admissions in quick succession. She is interested in TAVR workup. PAST MEDICAL HISTORY 1. CHF 2. CVA 3. Atrial fibrillation on Eliquis 4. COPD 5. Hypertension 6. Hyperlipidemia CURRENT MEDICATIONS 1. Atorvastatin 40 mg q.h.s. 2. Lasix 40 mg IV 3. Eliquis 2.5 mg p.o. b.i.d. 4. Aspirin 81 mg 5. Lisinopril 10 mg 6. Lopressor 50 mg p.o. b.i.d. ALLERGIES CODEINE PHYSICAL EXAMINATION Afebrile, pulse 52, respiratory rate 20, BP 133/61, sating 94% on 2 liters. GENERAL: A pleasant elderly woman in no distress. NECK: No JVD. LUNGS: Clear to auscultation bilaterally. CARDIOVASCULAR: Regular rate and rhythm. A 3/6 harsh systolic murmur is appreciated. ABDOMEN: Benign. EXTREMITIES: Trace edema bilaterally. LABORATORY DATA White count 5.6, hematocrit 45.1, platelets 24.5. Sodium 137, potassium 4.5, chloride 98, bicarb 31.3, BUN 21, creatinine 1.4. Cardiac enzymes are negative. BNP is 768. EKG shows sinus bradycardia at 60. Chest CT showed no evidence of pulmonary embolism, but possible CHF. IMPRESSION CHF and aortic stenosis. The patient has acute on chronic systolic congestive heart failure with a normal ejection fraction caused by her aortic stenosis. She has had multiple admissions now and is a good candidate for valve replacement likely a TAVR. She is interested and I will transfer her to the main hospital. I have asked my colleagues Doctors Edward and Guille to assist with the invasive portions of the workup including possible cath and maybe valvuloplasty prior to eventual destination therapy of TAVR. Further recommendations will be based on her workup. Thank you again for the opportunity to participate in this patient's care. MD MACARENA Walsh/CLAUDIA /7:59 AM /8:12 AM
[2017-12-23] MEDS: APIXABAN 2.5 MG TABLET PO SCH (08:55)
[2017-12-23] MEDS: ASPIRIN EC 81 MG TABEC PO SCH ×2 (08:55→12:40)
[2017-12-23] MEDS: METOPROLOL TARTRATE 50 MG TAB PO SCH ×3 (08:55→20:41)
[2017-12-23] MEDS: FUROSEMIDE 40 MG/4 ML VIAL IVP SCH ×2 (08:55→18:15)
[2017-12-23] MEDS: SODIUM CHLORIDE 0.9% FLUSH 10 ML FLUSH IV FLUSH SCH ×2 (08:56→20:41)
[2017-12-23] MEDS: LISINOPRIL 10 MG TAB PO SCH (08:56)
--- NOTE | 2017-12-23 11:23 | HHI.PR ---
Subjective Remarks Patient seen and evaluated today in follow-up for aortic stenosis No new complaints today. Cardiology consult appreciated and patient is aware of transfer for evaluation of aortic valve. Objective Vitals Vital Signs Date Time Temp Pulse Resp B/P (MAP) Pulse Ox O2 Delivery O2 Flow Rate FiO2 12/23/17 08:00 95.8 52 18 146/57 (86) 94 12/23/17 07:28 95 Nasal Cannula 2.00 12/23/17 04:00 97.3 52 20 133/61 (85) 94 12/23/17 01:10 53 12/23/17 00:00 97.5 55 20 133/56 (81) 91 12/22/17 21:25 55 121/61 (81) 12/22/17 20:30 93 Nasal Cannula 2.00 12/22/17 20:00 98.7 55 20 122/58 (79) 92 12/22/17 16:00 98.0 62 20 140/65 (90) 93 12/22/17 15:00 53 12/22/17 14:44 93 Nasal Cannula 2.00 12/22/17 13:52 60 12/22/17 12:00 98.3 56 20 155/67 (96) 94 12/22/17 11:25 I/O 12/22/17 12/22/17 12/22/17 12/23/17 12/23/17 12/23/17 07:00 15:00 23:00 07:00 15:00 23:00 Intake Total 550 ml 240 ml Output Total 600 ml Balance 550 ml -360 ml Intake Oral 550 ml 240 ml Output Urine Total 600 ml # Voids 2 2 3 # Bowel Movements 0 Result Diagram: 12/23/17 0610 12/23/17 0610 Imaging Last Impressions Chest X-Ray 12/22/17 0720 Signed Impressions: Service Date/Time: Friday, December 22, 2017 07:24 - CONCLUSION: 1. Moderate severity diffuse interstitial opacities and mild bibasilar atelectasis. 2. Small apical pneumothorax probable on the right and possible on the left. Doroteo Rico MD CT Angiography 12/22/17 0000 Signed Impressions: Service Date/Time: Friday, December 22, 2017 09:17 - CONCLUSION: 1. No evidence for pulmonary embolism. 2. Bibasilar consolidation with interlobular septal thickening and small pleural effusions likely CHF Froy Perez MD Objective Remarks GENERAL: This is a well-nourished, well-developed patient, in no apparent distress. CARDIOVASCULAR: Regular rate and rhythm without gallops or rubs but a loud systolic murmur RESPIRATORY: Clear to auscultation. Breath sounds equal bilaterally. No wheezes , rales, or rhonchi. GASTROINTESTINAL: Abdomen soft, non-tender, nondistended. Normal active bowel sounds MUSCULOSKELETAL: Extremities without clubbing, cyanosis, or edema. NEURO: Alert & Oriented x4 to person, place, time, situation. Moves all ext x4 A/P Problem List: (1) Acute on chronic diastolic congestive heart failure ICD Code: I50.33 - Acute on chronic diastolic (congestive) heart failure Plan: Likely due to aortic stenosis, continue evaluation for aortic valve treatment Patient be transferred to the main hospital Continue current medications (2) Hyperkalemia ICD Code: E87.5 - Hyperkalemia Status: Acute Plan: Improved Discharge Planning [facility] Avelina Davalos MD Dec 23, 2017 11:22
--- NOTE | 2017-12-23 11:37 | EKG ---
Date Performed: 12/22/2017 Time Performed: 07:34:49 PTAGE: 87 years EKG: SINUS BRADYCARDIA BORDERLINE ECG PREVIOUS TRACING : 12/06/2017 21.59 Since the prior tracing, there has been no significant box DOCTOR: Yosef Baez Interpretating Date/Time 12/23/2017 11:36:07
[2017-12-23] MEDS: ATORVASTATIN 40 MG TAB PO SCH (20:41)
[2017-12-24] VITALS (26 sets, daily range): BP systolic 118–131; BP diastolic 54–60; PULSE 47–63; RESP 20; TEMP 97.3–98.6; O2SAT 90–94
[2017-12-24 06:14] LABS: AUTOMATED NEUTROPHIL # 3.2 TH/MM3 (1.8-7.7); BASOPHIL # 0.2 TH/MM3 (0-0.2); BASOPHIL % 2.3 % (0.0-2.0); EOSINOPHIL # 0.6 TH/MM3 (0-0.4); EOSINOPHIL % 9.7 % (0.0-4.0); LYMPH % 24.8 % (9.0-44.0); LYMPHOCYTE # 1.6 TH/MM3 (1.0-4.8); MEAN CELL VOLUME 74.6 FL (80.0-100.0); MEAN CORPUSCULAR HEMOGLOBIN 24.8 PG (27.0-34.0); MEAN CORPUSCULAR HGB CONC 33.3 % (32.0-36.0); MONOCYTE # 0.9 TH/MM3 (0-0.9); NEUT % 49.2 % (16.0-70.0); PLATELET COUNT 139 TH/MM3 (150-450); RED BLOOD COUNT 5.63 MIL/MM3 (4.00-5.30); WHITE BLOOD COUNT 6.5 TH/MM3 (4.0-11.0)
[2017-12-24 06:36] LABS: BICARBONATE 28.8 MEQ/L (21.0-32.0); CALCIUM 9.4 MG/DL (8.5-10.1); CREATININE 1.43 MG/DL (0.50-1.00)
[2017-12-24] MEDS: ASPIRIN EC 81 MG TABEC PO SCH (08:32)
[2017-12-24] MEDS: FUROSEMIDE 40 MG/4 ML VIAL IVP SCH ×2 (08:32→18:05)
[2017-12-24] MEDS: METOPROLOL TARTRATE 50 MG TAB PO SCH ×2 (08:33→19:37)
[2017-12-24] MEDS: SODIUM CHLORIDE 0.9% FLUSH 10 ML FLUSH IV FLUSH SCH ×2 (08:33→19:37)
[2017-12-24] MEDS: LISINOPRIL 10 MG TAB PO SCH (08:33)
[2017-12-24] MEDS: RESP: ALBUTEROL 2.5 MG/IPRATROPIUM 0.5 MG NEB (SCH) NEB ×3 (08:34→19:43)
--- NOTE | 2017-12-24 08:51 | MB ---
cc: FRANCISCO JAVIER GALLAGHER DO DATE OF CONSULTATION: 12/23/2017 REASON FOR CONSULTATION: Consideration of cardiac catheterization for TAVR workup. HISTORY OF PRESENT ILLNESS: Aurea Parker is a pleasant 87 year-old female who is known to my partner, Dr. Coello, and presented to [facility] due to shortness of breath and dyspnea. Apparently she presented previously to the hospital on December 07, 2017 with similar symptoms. At that time she had an echocardiogram done which showed severe aortic stenosis. She was to be discharged home and follow up in the office of Dr. Coello. Apparently she was to follow up with him in the next few days but was getting so short of breath that she had to come back into the hospital. She started noticing orthopnea with inability to lay anywhere close to flat. She called her niece this morning and when she arrived she decided she needed to go to the emergency room due to the shortness of breath. She was seen by Dr. Coello and he discussed with her consideration of workup for possible TAVR. Because of this, she was transferred to [facility] for left and right heart catheterization. PAST MEDICAL HISTORY 1. Severe aortic stenosis. 2. Hypertension. 3. Hyperlipidemia. 4. COPD. 5. Chronic diastolic congestive heart failure. 6. History of atrial fibrillation. 7. History of CVA. 8. Chronic tobacco use. PAST SURGICAL HISTORY: 1. Cholecystectomy. 2. Hysterectomy. ALLERGIES: CODEINE MEDICATIONS 1. Combivent q.i.d. 2. Eliquis 2.5 milligrams b.i.d. 3. Lipitor 40 milligrams every night. 4. Metoprolol tartrate 50 milligrams b.i.d. 5. Benazepril 10 milligrams daily. 6. Aspirin 81 milligrams daily. 7. Potassium 10 milliequivalents daily. 8. Lactobacillus one tab b.i.d. 9. Multivitamin. FAMILY HISTORY: Mother in her 80s with heart problems. Father was shot in his 30s. SOCIAL HISTORY: The patient does smoke cigarettes. She is down to two cigarettes a day. Prior to that she smoked a pack of cigarettes for 70 years. Denies alcohol or illicit drug abuse. REVIEW OF SYSTEMS 14 systems reviewed including osteopathic pertinent positives and negatives above. PHYSICAL EXAMINATION Vital signs: Temperature 97.9, heart rate 55, blood pressure 116/50, respiratory rate 18, pulse ox 93% on two liters. GENERAL: The patient appears in no acute distress, alert, awake, oriented x3. HEENT: Extraocular movements intact. Mucous membranes moist. NECK: Supple, no JVD at 45 degrees. No carotid bruits heard bilaterally. Carotid upstrokes is brisk in nature. HEART: Regular rate and rhythm. Positive first and second heart sounds with a 3/5 crescendo decrescendo murmur to the right sternal border. LUNGS: Decreased breath sounds bilaterally but no overt rales, rhonchi or wheezing. ABDOMEN: Soft, non-tender, non-distended. No organomegaly noted. EXTREMITIES: Trace edema bilaterally. Femoral and distal pulses intact bilaterally. NEUROLOGIC: No focal deficits. SKIN: Warm, dry and intact. Osteopathically, no kyphoscoliosis or paraspinal tender points. LABORATORY WORK: Hemoglobin 14.6, hematocrit 45.1. Platelet count 144. Potassium 4.5, BUN 21, creatinine 1.4. Troponin negative x3. BMP 768. Electrocardiogram (December 22, 2017) at 07:34, sinus bradycardia. IMPRESSION Recurrent acute on chronic diastolic heart failure secondary to valve disease ([place] [employer] Association Class III, PAINTING/ACC, grade C). Francisco Javier Gallagher DO VGP/JAYA /10:36 PM /8:26 AM
[2017-12-24] MEDS: LORazepam 0.5 MG TAB PO PRN (10:18)
[2017-12-24] MEDS ORDERED: HEPARIN-NS/PF INJ 1,000 ML ONE (12:06)
[2017-12-24] MEDS ORDERED: MIDAZOLAM HCL 2 MG/2 ML VIAL ONE (12:06)
[2017-12-24] MEDS ORDERED: HEPARIN SODIUM - IV 10,000 UNITS/10 ML VIAL ONE (12:07)
[2017-12-24] MEDS ORDERED: NITROGLYCERIN INJ 5 ML ONE (12:07)
[2017-12-24] MEDS ORDERED: ONDANSETRON HCL 4 MG/2 ML VIAL IV PUSH PRN (13:15)
[2017-12-24] MEDS ORDERED: MISC INFORMATION XX ONE (13:15)
[2017-12-24] MEDS ORDERED: SODIUM CHLOR 0.9% 250 ML INJ 250 ML IV PRN (13:15)
[2017-12-24] MEDS ORDERED: ATROPINE SULFATE 1 MG/ML VIAL IV PUSH PRN (13:15)
--- NOTE | 2017-12-24 13:29 | CATHPROC ---
[employer] HIS Report Study Information Study Number Admission Scheduled Start Study Start [id number] Dec 23 2017 9:52AM 12/23/2017 Dec 24 2017 11:44AM [place] Service Cardiac Catheterization Admit Source Facility Department Other [facility] - Professor Of Mathematics Physician and Clinical Staff Initial Francisco Javier Alfaro Third Miller Sobia Cerna RN Other cathlab, cathlab Recorder Ermelinda Phelan ,RT(R) Recorder Bruce Nova,RT(R) Scrub Migdalia Garcia,RT(R) Procedures Performed Procedure Location (Site) Vessel Name Coronary Angiograms LCA Left Coronary Coronary Angiograms RCA Right Coronary Equipment Time Electrification Adviser Description Size Mfg Part Number Used/Scraped ARROW INTERNATIONAL CATHETER, FR.7 BALLOON [id number] 11:46 FR 7 Used INC. WEDGE PRESSURE *[id number] ARROW INTERNATIONAL CATHETER, FR.7 BALLOON [id number] 12:19 FR 7 Used INC. WEDGE PRESSURE *[id number] TRANSDUCER, TRUWAVE [id number] 11:45 RAMIREZ PARKER * Used W/STOCKCOCK *[id number] TRANSDUCER, TRUWAVE [id number] 11:45 RAMIREZ PARKER * Used W/STOCKCOCK *[id number] INTRODUCER SET, 11:45 COOK INC. FR 5 [id number] *[id number] Used MICROPUNCTURE, STIFFENED [id number] *[id number] 11:45 [employer] INDUSTRIES PACK, CCL CUSTOM * Used *[id number] 12:32 MEDTRONIC JR 4.0 DXTERITY CATHETER FR 5 Used *[id number] 11:45 [employer] MEDICAL WIRE, 3MMJ .035 180CM 180CM Used *[id number] 11:45 NAMIC MANIFOLD, 2 PORT * Used *[id number] 11:45 NAMIC MANIFOLD, 4 PORT * Used *[id number] 11:45 [employer]COMED OMNIPAQUE, 350 MG, 150ML 150ML [id number] Used [id number] 11:45 [employer] BLANKET,WARM AIR CCL * Used *[id number] 11:45 TERUMO MEDICAL SHEATH, FR5 TERUMO (10CM) FR 5 Used *[id number] 12:23 TERUMO MEDICAL SHEATH, FR7 TERUMO (10CM) FR 7 Used *[id number] Equipment Model, Serial, Lot Number and Expiration Data Description Model Number Serial Number Lot Number Expiration Date CATHETER, FR.7 BALLOON WEDGE [id number] 02-20-2019 PRESSURE JR 4.0 DXTERITY CATHETER [id number] 08-27-2020 History: Current Medications Medication Dosage/Unit Route Frequency Last Date/Time Taken LOPRESSOR ASA ELIQUIS LIPITOR K-Dur MVI History: Allergies Allergy Reaction codeine Constipation History: Risk Factors Family History of Hypertension Dyslipidemia Previous PR Previous Heart Failure Premature CAD Yes Yes No No Yes Prior Valve Prior PCI Prior CABG Surgery No No No Cerebrovascular Peripheral Artery Chronic Lung On Dialysis Diabetes Disease Disease Disease No Yes No Yes No History: Risk Factors Selection Items Hyperlipidemia History: Symptoms/Diagnosis Selection Items SOB History: Stress Tests Stress or Imaging Studies Performed No History: Arrhythmias Selection Items Atrial fibrillation History: Other Disease Selection Items CHF COPD HTN Stroke History: Other Current Smoker Method Packs a Day Years Used Pack Years Yes Cigarettes 1 70 70 Labs Hgb (g/dl) Hct (%) WBC (l/cumm) Platelets (thousands) 11.60-17.00 35.00-51.00 4.00-11.00 150.00-450.00 14.0 42 6.5 139 Glucose (mg/dl) BUN (mg/dl) Creatinine (mg/dl) BUN:Creatinine (1:x) 74.00-106.00 7.00-18.00 0.50-1.30 10.00-20.00 111 26 1.4 18.6 Na (meq/l) K (meq/l) 136.00-145.00 3.50-5.10 136 3.6 Troponin I (ng/ml) CPK (u/l) CPK-MB (ng/ML) 0.02-0.05 26.00-308.00 0.50-3.60 0.02 30 2.5 Medication Medication Total Dose (Bolus/Oral) Medication Total Dosage/Unit 1% XYLOCAINE 20 mL FENTANYL 50 mcg Medications (Bolus/Oral) Medication Time Given Dosage/Unit Administered By Reason FENTANYL 12/24/2017 12:34:00 PM 50 mcg Sobia Cerna Patient arrived on 50 mcg FENTANYL given by Sobia Cerna, RN in Right Antecubital via Peripheral I V. Ordered by Francisco Javier Han 1% XYLOCAINE 12/24/2017 12:35:01 PM 20 mL Francisco Javier Han Patient arrived on 20 mL 1% XYLOCAINE given by Francisco Javier Han in Right Groin via Subcutaneous. O rdered by Francisco Javier Han. Medication (Drip) Medication Time Given Dosage/Unit Concentration/Unit Diluent (ml) Solution IV Solutions 12/24/2017 11:51:57 AM 50 mL (IV) NaCl .9 Patient arrived on IV Solutions in Right Antecubital via Peripheral IV. Pump/Drip Flow using NaCl .9. Initial Case Assessment Cardiovascular HR Rhythm NIBP Chest Pain 60 sb 148/58 0 Edema Present Skin color Skin None Normal Warm Dry Circulatory - Right Pulses Dorsalis Pedis Femoral 3 3 Scale (0,1,2,3,4,d) Circulatory - Left Pulses Dorsalis Pedis Femoral 3 2 Scale (0,1,2,3,4,d) Circulatory - Lower Extremities Color Lower Right Color Lower Left Normal Normal Neurological State Oriented to time-place- Alert Moves all extremities person Respiration - General Respiration Rate SpO2 (%) (B/min) 16 94 Final Case Assessment Cardiovascular HR NIBP 58 145/59 Edema Present Skin color Skin None Normal Warm Dry Circulatory - Right Pulses Dorsalis Pedis Femoral 3 3 Scale (0,1,2,3,4,d) Circulatory - Left Pulses Dorsalis Pedis Femoral 3 2 Scale (0,1,2,3,4,d) Neurological State Oriented to time-place- Alert Moves all extremities person Respiration - General Respiration Rate SpO2 (%) (B/min) 10 91 Chronological Log Time Study Chronological Log 11:51:47 Patient arrived via Bed. 11:51:48 Patient Name, D.O.B, / Armband Verified By R.N. 11:51:49 Consent signed by the physician and the patient and verified by the Professor Of Mathematics staff. 11:51:49 Pre-op and post- op instructions given; patient acknowledges understanding of instructions. 11:51:49 Verbal Stimulation=2 Physical Stimulation=2 Airway=2 Respiration=2 TOTAL=8. (0=absent, 1=li mited, 2=present) 11:51:50 Presedation assessment performed by Professor Of Mathematics RN. 11:51:51 Immediate Presedation assesment performed by physician. 11:51:52 Patient has been NPO for More than 6Hrs. 11:51:52 Skin Breakdown- none per patient 11:51:53 Patient Warmer Placed on the Table. 11:51:55 Maik Prominences Protected 11:51:55 A # 20 IV was noted in the Antecubital (right). Grade = 0 11:51:57 Patient arrived on IV Solutions in Right Antecubital via Peripheral IV. Pump/Drip Flow usin g NaCl .9. 11:51:57 History and physical on the chart or being dictated. Assessment: Initial Case, HR=60 BPM, Rhythm=sb, UNLI=615/58 mmhg, Chest Pain=0, Edema=None, Col or=Normal, Skin = Warm, Dry Right Pulses: Edgard Ped=3, Femoral=3 Left Pulses: Edgard Ped=3, Femoral=2 11:58:41 Lower Right Extremities: Color=Normal Lower Left Extremities: Color=Normal Neurological: State=Alert, Ox3, DURAN Respiration: Resp=16 B/min, SpO2=94 % Vitals capture started with the following parameters, Patient=Adult, Interval=5 min, Initial Pr huaquc=591 mmHg, 11:59:10 Deflation Rate=5 mmHg, Cuff placed on Left Arm 11:59:56 HR=53 bpm, OOEF=958/58 mmhg, SpO2=94.0 %, Resp=19 B/min, Pain=0, Tim=10, Conley=2 12:04:44 Reference ECG taken 12:04:59 HR=53 bpm, XZJE=718/57 mmhg, SpO2=92.0 %, Resp=17 B/min, Pain=0, Tim=10, Conley=2 12:09:56 HR=56 bpm, CDYS=465/58 mmhg, SpO2=91.0 %, Resp=25 B/min, Pain=0, Tim=10, Conley=2 12:15:26 HR=55 bpm, RBJT=710/60 mmhg, SpO2=90.0 %, Resp=22 B/min 12:19:56 HR=58 bpm, PNTZ=599/63 mmhg, SpO2=93 %, Resp=19 B/min 12:21:12 Bilateral groins prepped with 2% chlorhexidine, and draped after a 3 min. waiting time. 12:24:57 HR=53 bpm, OIIL=838/54 mmhg, SpO2=92.0 %, Resp=22 B/min 12:25:20 MD texted ready 12:27:11 Pressure channel 1 zeroed. 12:29:38 MD arrived. 12:29:58 HR=54 bpm, DCRS=745/55 mmhg, SpO2=90.0 %, Resp=24 B/min Time Out. Correct patient, correct procedure, correct physician, power injector not loaded with contrast with surgical 12:32:40 team present. Time Out Concurred by MD and individual staff in procedure. Time Out #2 - Consents verified, patient in correct position, all results are labled and displa yed, safety precautions 12:32:55 taken. Time Out concurred by MD, individual staff and WINDOW CUTTER in procedure. 12:33:02 Case Start Patient arrived on 50 mcg FENTANYL given by Sobia Cerna RN in Right Antecubital via Periph eral IV. Ordered by 12:34:00 Francisco Javier Han Patient arrived on 20 mL 1% XYLOCAINE given by Francisco Javier Han in Right Groin via Subcutane ous. Ordered by 12:35:01 Francisco Javier Han 12:35:26 HR=57 bpm, RSQQ=667/59 mmhg, SpO2=89.0 %, Resp=13 B/min, Pain=0, Tim=10, Conley=2 12:35:35 Access site was Right Femoral Artery. micropuncture 12:36:23 A SHEATH, FR5 TERUMO (10CM) FR 5 was advanced into the Fem Art (right) using the Percutaneo us technique. 12:37:55 Access site was Right Femoral Vein. 12:38:07 A SHEATH, FR7 TERUMO (10CM) FR 7 was advanced into the Fem Vein (right) using the Percutane ous technique. 12:39:18 A CATHETER, FR.7 BALLOON WEDGE PRESSURE FR 7 was inserted via Fem Vein (right) 12:39:59 An injection in the Fem Art (right) was made through the SHEATH, FR5 TERUMO (10CM) FR 5. 12:40:41 HR=56 bpm, DBHX=578/56 mmhg, SpO2=89.0 %, Resp=16 B/min, Pain=0, Tim=10, Conley=2 Recorded Pressure: PCW, HR=56, Condition=Condition 1 12:42:38 (Pulmonary Capillary Wedge) PCW 08/11/11 12:43:13 Saturation: Site=PA (Pulmonary Artery) , O2=69.7 %, Hgb=14 gm/dl, Condition=Condition 1. Us ed in calculation. Recorded Pressure: MPA, HR=56, Condition=Condition 1 12:43:57 (Main Pulmonary Artery) MPA 18/11/18 12:44:03 Saturation: Site=Ao (Aorta) , O2=93.3 %, Hgb=14 gm/dl, Condition=Condition 1. Used in calcu lation. 12:44:59 HR=55 bpm, RVJZ=980/56 mmhg, SpO2=92.0 %, Resp=21 B/min, Pain=0, Tim=10, Conley=2 Recorded Pressure: RV, HR=56, Condition=Condition 1 12:45:26 (Right Ventricle) RV 28/4/7 Recorded Pressure: RA, HR=52, Condition=Condition 1 12:45:48 (Right Atrium) RA 9/ 12:45:59 Blaine Mary Catheter Removed A JR 4.0 DXTERITY CATHETER FR 5 was advanced over a wire. OMNIPAQUE, 350 MG, 150ML 150ML was us ed for 12:46:13 injections. 12:48:44 The RCA was injected and visualized at various angles. OMNIPAQUE, 350 MG, 150ML 150ML used . 12:49:24 Catheter was removed A JL 4.0 INFINITI CATHETER FR 5 was advanced over a wire. OMNIPAQUE, 350 MG, 150ML 150ML was us ed for 12:49:48 injections. 12:50:05 HR=56 bpm, MMGM=260/58 mmhg, SpO2=90.0 %, Resp=17 B/min, Pain=0, Tim=10, Conley=2 Recorded Pressure: Ao, HR=55, Condition=Condition 1 12:50:53 (Aorta) Ao 141/48/83 12:52:21 The LCA was injected and visualized at various angles. OMNIPAQUE, 350 MG, 150ML 150ML used . 12:54:08 Catheter was removed 12:54:13 Case End Assessment: Final Case, HR=58 BPM, UZKH=290/59 mmhg, Edema=None, Color=Normal, Skin = Warm, Dry Right Pulses: Edgard Ped=3, Femoral=3 12:54:24 Left Pulses: Edgard Ped=3, Femoral=2 Neurological: State=Alert, Ox3, DURAN Respiration: Resp=10 B/min, SpO2=91 % 12:54:42 No case complications noted. 12:54:52 Bedside Report will be given. 12:54:55 Contrast Scanned 12:55:02 A Left and Right Heart Cath was performed. 12:55:04 HR=58 bpm, XIGO=089/59 mmhg, SpO2=89.0 %, Resp=6 B/min, Pain=0, Tim=10, Conley=2 13:00:31 HR=60 bpm, HRMS=558/64 mmhg, SpO2=91.0 %, Resp=18 B/min, Pain=0, Tim=10, Conley=2 13:00:39 Sheath removed; pressure applied to access site. 13:00:49 Sterile dressing applied to site 13:03:42 Cine recording checked. 13:03:44 Bedside Report will be given. 13:05:04 HR=59 bpm, KLMF=178/65 mmhg, SpO2=90.0 %, Resp=13 B/min, Pain=0, Tim=10, Conley=2 13:10:44 HR=61 bpm, SWLS=748/66 mmhg, SpO2=89.0 %, Resp=18 B/min, Pain=0, Tim=10, Conley=2 13:15:04 HR=60 bpm, HVNH=094/57 mmhg, SpO2=91.0 %, Resp=8 B/min, Pain=0, Tim=10, Conley=2 13:20:03 HR=58 bpm, JGMP=261/61 mmhg, SpO2=88.0 %, Resp=11 B/min, Pain=0, Tim=10, Conley=2 13:23:05 Vitals capture stopped. 13:25:05 Patient moved to stretcher End Study - Contrast Media Used In Study Contrast Total Opened (mL) Total Used (mL) Total Wasted (mL) Omnipaque 30 30 0 End Study - Maximum Contrast Load Max Contrast Load (mL) 281.0 End Study - Radiation Exposure Fluoro Time (minutes) 3.1 End Study - Sheaths Sheaths Pulled By Sheath Hold Time (min) Migdalia Garcia 20 End Study - Patient Disposition Complications Transferred To Interventional Outcome No Telemetry Bed No attempt made
[2017-12-24] MEDS ORDERED: IOHEXOL 350 MG/ML 50 ML BTL (for Cath Lab) OTHER ONE (14:00)
--- NOTE | 2017-12-24 14:59 | HHI.PR ---
Subjective Remarks Seen earlier today. The patient appears anxious as says she has a upcoming procedure later today. Denies any chest pain at this time no shortness of breath. Some dizziness, sob improved today. Has good UOP. No nausea or vomiting no diarrhea or constipation. Objective Vitals Vital Signs Date Time Temp Pulse Resp B/P (MAP) Pulse Ox O2 Delivery O2 Flow Rate FiO2 12/24/17 14:00 56 12/24/17 13:30 98.0 59 131/60 (83) 94 12/24/17 11:30 97.9 56 20 119/56 (77) 93 12/24/17 11:30 56 12/24/17 11:00 52 12/24/17 10:00 62 12/24/17 09:00 56 12/24/17 08:38 21 12/24/17 08:00 53 12/24/17 08:00 98.6 53 20 129/58 (81) 92 12/24/17 06:17 56 12/24/17 05:02 51 12/24/17 04:27 54 12/24/17 03:57 97.3 56 118/54 (75) 91 12/24/17 03:00 53 12/24/17 02:05 55 12/24/17 01:00 50 12/24/17 00:00 50 12/23/17 23:47 50 12/23/17 23:35 98.2 51 110/52 (71) 93 12/23/17 22:00 54 12/23/17 21:00 56 12/23/17 20:00 60 12/23/17 20:00 98.4 60 118/52 (74) 91 12/23/17 19:17 93 21 12/23/17 19:00 71 12/23/17 18:00 54 12/23/17 17:00 54 12/23/17 16:12 55 12/23/17 15:29 97.9 55 18 116/50 (72) 93 12/23/17 15:00 55 I/O 12/23/17 12/23/17 12/23/17 12/24/17 12/24/17 12/24/17 07:00 15:00 23:00 07:00 15:00 23:00 Intake Total 240 ml 480 ml 240 ml 240 ml Output Total 600 ml 100 ml 1050 ml Balance -360 ml 480 ml 140 ml -810 ml Intake Oral 240 ml 480 ml 240 ml 240 ml Output Urine Total 600 ml 100 ml 1050 ml # Voids 3 2 # Bowel Movements 0 0 Result Diagram: 12/24/17 0426 12/24/17 0426 Imaging Last Impressions Chest X-Ray 12/22/17 0720 Signed Impressions: Service Date/Time: Friday, December 22, 2017 07:24 - CONCLUSION: 1. Moderate severity diffuse interstitial opacities and mild bibasilar atelectasis. 2. Small apical pneumothorax probable on the right and possible on the left. Doroteo Rico MD CT Angiography 12/22/17 0000 Signed Impressions: Service Date/Time: Friday, December 22, 2017 09:17 - CONCLUSION: 1. No evidence for pulmonary embolism. 2. Bibasilar consolidation with interlobular septal thickening and small pleural effusions likely CHF Froy Perez MD Objective Remarks GENERAL: This is a well-nourished, well-developed patient, in no apparent distress. CARDIOVASCULAR: Regular rate and rhythm without gallops or rubs but a loud systolic murmur RESPIRATORY: Clear to auscultation. Breath sounds equal bilaterally. No wheezes , rales, or rhonchi. GASTROINTESTINAL: Abdomen soft, non-tender, nondistended. Normal active bowel sounds MUSCULOSKELETAL: Extremities without clubbing, cyanosis, or edema. NEURO: Alert & Oriented x4 to person, place, time, situation. Moves all ext x4 A/P Problem List: (1) Acute on chronic diastolic congestive heart failure ICD Code: I50.33 - Acute on chronic diastolic (congestive) heart failure (2) Hyperkalemia ICD Code: E87.5 - Hyperkalemia Status: Acute Assessment and Plan (1) Acute on chronic diastolic congestive heart failure ICD Code: I50.33 - Acute on chronic diastolic (congestive) heart failure Plan: Likely due to aortic stenosis, continue evaluation for aortic valve treatment Continue current medications Plan for cardiac cath and TAVR 12/24/17 Ativan for anxiety as need (2) Hyperkalemia ICD Code: E87.5 - Hyperkalemia Status: Acute Plan: Improved Discharge Planning Plan for cardiac catheter with TAVR Discussed with the patient, nurse Morenita Good MD Dec 24, 2017 14:59
--- NOTE | 2017-12-24 16:25 | PD.CAR.PN ---
CVT Progress Note Subjective/Hospital Course: pt seen and evaluated, full consult completed sts data discussed with pt and family RISK SCORES About the STS Risk Calculator Procedure: AV Replacement Risk of Mortality: 8.568% Morbidity or Mortality: 33.5% Long Length of Stay: 23.788% Short Length of Stay: 9.931% Permanent Stroke: 4.229% Prolonged Ventilation: 27.328% DSW Infection: 0.422% Renal Failure: 14.46% Reoperation: 9.946% Objective: Vital Signs Date Time Temp Pulse Resp B/P (MAP) Pulse Ox O2 Delivery O2 Flow Rate FiO2 12/24/17 16:06 63 12/24/17 16:06 98.1 63 20 124/57 (79) 94 12/24/17 14:00 56 12/24/17 13:30 98.0 59 131/60 (83) 94 12/24/17 11:30 97.9 56 20 119/56 (77) 93 12/24/17 11:30 56 12/24/17 11:00 52 12/24/17 10:00 62 12/24/17 09:00 56 12/24/17 08:38 21 12/24/17 08:00 53 12/24/17 08:00 98.6 53 20 129/58 (81) 92 12/24/17 06:17 56 12/24/17 05:02 51 12/24/17 04:27 54 12/24/17 03:57 97.3 56 118/54 (75) 91 12/24/17 03:00 53 12/24/17 02:05 55 12/24/17 01:00 50 12/24/17 00:00 50 12/23/17 23:47 50 12/23/17 23:35 98.2 51 110/52 (71) 93 12/23/17 22:00 54 12/23/17 21:00 56 12/23/17 20:00 60 12/23/17 20:00 98.4 60 118/52 (74) 91 12/23/17 19:17 93 21 12/23/17 19:00 71 12/23/17 18:00 54 12/23/17 17:00 54 Labs: Laboratory Tests Test 12/24/17 04:26 White Blood Count 6.5 TH/MM3 (4.0-11.0) Red Blood Count 5.63 MIL/MM3 (4.00-5.30) Hemoglobin 14.0 GM/DL (11.6-15.3) Hematocrit 42.0 % (35.0-46.0) Mean Corpuscular Volume 74.6 FL (80.0-100.0) Mean Corpuscular Hemoglobin 24.8 PG (27.0-34.0) Mean Corpuscular Hemoglobin Concent 33.3 % (32.0-36.0) Red Cell Distribution Width 20.0 % (11.6-17.2) Platelet Count 139 TH/MM3 (150-450) Mean Platelet Volume 9.0 FL (7.0-11.0) Neutrophils (%) (Auto) 49.2 % (16.0-70.0) Lymphocytes (%) (Auto) 24.8 % (9.0-44.0) Monocytes (%) (Auto) 14.0 % (0.0-8.0) Eosinophils (%) (Auto) 9.7 % (0.0-4.0) Basophils (%) (Auto) 2.3 % (0.0-2.0) Neutrophils # (Auto) 3.2 TH/MM3 (1.8-7.7) Lymphocytes # (Auto) 1.6 TH/MM3 (1.0-4.8) Monocytes # (Auto) 0.9 TH/MM3 (0-0.9) Eosinophils # (Auto) 0.6 TH/MM3 (0-0.4) Basophils # (Auto) 0.2 TH/MM3 (0-0.2) CBC Comment DIFF FINAL Differential Comment Blood Urea Nitrogen 26 MG/DL (7-18) Creatinine 1.43 MG/DL (0.50-1.00) Random Glucose 111 MG/DL (74-106) Calcium Level 9.4 MG/DL (8.5-10.1) Sodium Level 136 MEQ/L (136-145) Potassium Level 3.6 MEQ/L (3.5-5.1) Chloride Level 97 MEQ/L (98-107) Carbon Dioxide Level 28.8 MEQ/L (21.0-32.0) Anion Gap 10 MEQ/L (5-15) Estimat Glomerular Filtration Rate 35 ML/MIN (>89) Result Diagram: 12/24/17 0426 12/24/17 0426 Lina Sauceda Dec 24, 2017 16:25
--- NOTE | 2017-12-24 19:04 | PD.CARD.PN ---
Subjective Subjective Remarks Patient was seen post catheterization earlier No complaints Objective Medications Current Medications Medications (Trade) Dose Ordered Sig/Xiang Route Start Time Stop Time Status Last Admin (NS Flush) 2 ml UNSCH PRN IV FLUSH 12/22/17 12:30 (NS Flush) 2 ml BID IV FLUSH 12/22/17 21:00 12/24/17 08:33 (Lasix Inj) 40 mg BID@09,18 IVP 12/22/17 18:00 12/24/17 18:05 (Duoneb Neb) 1 ampule Q6HR WHILE AWAKE NEB NEB 12/22/17 20:00 12/24/17 13:41 (Duoneb Neb) 1 ampule Q2HR NEB PRN NEB 12/22/17 14:15 12/22/17 14:40 (Ecotrin Ec) 81 mg DAILY PO 12/22/17 14:15 12/24/17 08:32 (Lipitor) 40 mg HS PO 12/22/17 21:00 12/23/17 20:41 (Prinivil) 10 mg DAILY PO 12/22/17 14:15 12/24/17 08:33 (Lopressor) 50 mg BID PO 12/22/17 14:15 12/24/17 08:33 (Ativan) 0.5 mg Q8H PRN PO 12/24/17 10:00 12/24/17 10:18 (Atropine Inj) 0.5 mg UNSCH PRN IV PUSH 12/24/17 13:15 Sodium Chloride 250 ml @ 500 mls/hr ONCE PRN IV 12/24/17 13:15 12/25/17 13:14 (Zofran Inj) 4 mg Q4H PRN IV PUSH 12/24/17 13:15 Vital Signs / I&O Vital Signs Date Time Temp Pulse Resp B/P (MAP) Pulse Ox O2 Delivery O2 Flow Rate FiO2 12/24/17 18:00 63 12/24/17 17:00 60 12/24/17 16:06 63 12/24/17 16:06 98.1 63 20 124/57 (79) 94 12/24/17 15:00 60 12/24/17 14:00 56 12/24/17 13:30 98.0 59 131/60 (83) 94 12/24/17 11:30 97.9 56 20 119/56 (77) 93 12/24/17 11:30 56 12/24/17 11:00 52 12/24/17 10:00 62 12/24/17 09:00 56 12/24/17 08:38 21 12/24/17 08:00 53 12/24/17 08:00 98.6 53 20 129/58 (81) 92 12/24/17 06:17 56 12/24/17 05:02 51 12/24/17 04:27 54 12/24/17 03:57 97.3 56 118/54 (75) 91 12/24/17 03:00 53 12/24/17 02:05 55 12/24/17 01:00 50 12/24/17 00:00 50 12/23/17 23:47 50 12/23/17 23:35 98.2 51 110/52 (71) 93 12/23/17 22:00 54 12/23/17 21:00 56 12/23/17 20:00 60 12/23/17 20:00 98.4 60 118/52 (74) 91 12/23/17 19:17 93 21 I/O 12/23/17 12/23/17 12/23/17 12/24/17 12/24/17 12/24/17 07:00 15:00 23:00 07:00 15:00 23:00 Intake Total 240 ml 480 ml 240 ml 240 ml 600 ml Output Total 600 ml 100 ml 1050 ml 950 ml Balance -360 ml 480 ml 140 ml -810 ml -350 ml Intake Oral 240 ml 480 ml 240 ml 240 ml 300 ml IV Total 300 ml Output Urine Total 600 ml 100 ml 1050 ml 950 ml # Voids 3 2 # Bowel Movements 0 0 0 Physical Exam GENERAL: NAD, AAOx3 SKIN: Warm and dry. HEAD: Atraumatic. Normocephalic. EYES: Pupils equal and round. No scleral icterus. No injection or drainage. ENT: No nasal bleeding or discharge. Mucous membranes pink and moist. NECK: Trachea midline. No JVD. CARDIOVASCULAR: Regular rate and rhythm. 3/6 crescendo-decrescendo murmur to the RSB RESPIRATORY: No accessory muscle use. Clear to auscultation. Breath sounds equal bilaterally. GASTROINTESTINAL: Abdomen soft, non-tender, nondistended. Hepatic and splenic margins not palpable. MUSCULOSKELETAL: Extremities without clubbing, cyanosis, or edema. No obvious deformities. NEUROLOGICAL: Awake and alert. No obvious cranial nerve deficits. Motor grossly within normal limits. Five out of 5 muscle strength in the arms and legs. Normal speech. PSYCHIATRIC: Appropriate mood and affect; insight and judgment normal. Laboratory Laboratory Tests Test 12/24/17 04:26 White Blood Count 6.5 TH/MM3 Red Blood Count 5.63 MIL/MM3 Hemoglobin 14.0 GM/DL Hematocrit 42.0 % Mean Corpuscular Volume 74.6 FL Mean Corpuscular Hemoglobin 24.8 PG Mean Corpuscular Hemoglobin Concent 33.3 % Red Cell Distribution Width 20.0 % Platelet Count 139 TH/MM3 Mean Platelet Volume 9.0 FL Neutrophils (%) (Auto) 49.2 % Lymphocytes (%) (Auto) 24.8 % Monocytes (%) (Auto) 14.0 % Eosinophils (%) (Auto) 9.7 % Basophils (%) (Auto) 2.3 % Neutrophils # (Auto) 3.2 TH/MM3 Lymphocytes # (Auto) 1.6 TH/MM3 Monocytes # (Auto) 0.9 TH/MM3 Eosinophils # (Auto) 0.6 TH/MM3 Basophils # (Auto) 0.2 TH/MM3 CBC Comment DIFF FINAL Differential Comment Blood Urea Nitrogen 26 MG/DL Creatinine 1.43 MG/DL Random Glucose 111 MG/DL Calcium Level 9.4 MG/DL Sodium Level 136 MEQ/L Potassium Level 3.6 MEQ/L Chloride Level 97 MEQ/L Carbon Dioxide Level 28.8 MEQ/L Anion Gap 10 MEQ/L Estimat Glomerular Filtration Rate 35 ML/MIN Assessment and Plan Problem List: (1) Severe aortic stenosis ICD Codes: I35.0 - Nonrheumatic aortic (valve) stenosis (2) Acute on chronic diastolic congestive heart failure ICD Codes: I50.33 - Acute on chronic diastolic (congestive) heart failure (3) CHF exacerbation ICD Codes: I50.9 - Heart failure, unspecified (4) Pleural effusion ICD Codes: J90 - Pleural effusion, not elsewhere classified Status: Acute (5) DM (diabetes mellitus) ICD Codes: E11.9 - Type 2 diabetes mellitus without complications (6) Tobacco abuse ICD Codes: Z72.0 - Tobacco use Assessment and Plan 1) Acute on chronic CHF with severe 2) No significant CAD on catheterization 3) Most likely plan for TAVR over AVR secondary to comorbidities and frailty 4) Con't diuresis 5) Seen by CT surgery, will await decision by CT surgery/Structural heart team Farncisco Javier Han DO Dec 24, 2017 19:04
[2017-12-24] MEDS: ATORVASTATIN 40 MG TAB PO SCH (19:36)
[2017-12-25] VITALS (31 sets, daily range): BP systolic 94–129; BP diastolic 46–65; PULSE 52–90; RESP 16–18; TEMP 97.5–98.6; O2SAT 92–94
[2017-12-25] MEDS: RESP: ALBUTEROL 2.5 MG/IPRATROPIUM 0.5 MG NEB (PRN) NEB (05:41)
[2017-12-25 06:56] LABS: AUTOMATED NEUTROPHIL # 1.8 TH/MM3 (1.8-7.7); BASOPHIL # 0.1 TH/MM3 (0-0.2); BASOPHIL % 2.6 % (0.0-2.0); EOSINOPHIL # 0.7 TH/MM3 (0-0.4); EOSINOPHIL % 12.9 % (0.0-4.0); HEMATOCRIT 42.3 % (35.0-46.0); HEMOGLOBIN 14.1 GM/DL (11.6-15.3); LYMPH % 33.8 % (9.0-44.0); LYMPHOCYTE # 1.8 TH/MM3 (1.0-4.8); MEAN CELL VOLUME 75.3 FL (80.0-100.0); MEAN CORPUSCULAR HEMOGLOBIN 25.2 PG (27.0-34.0); MEAN CORPUSCULAR HGB CONC 33.4 % (32.0-36.0); MEAN PLATELET VOLUME 9.7 FL (7.0-11.0); MONO % 17.3 % (0.0-8.0); NEUT % 33.4 % (16.0-70.0); PLATELET COUNT 142 TH/MM3 (150-450); RED BLOOD COUNT 5.62 MIL/MM3 (4.00-5.30); RED CELL DISTRIBUTION WIDTH 20.3 % (11.6-17.2); WHITE BLOOD COUNT 5.5 TH/MM3 (4.0-11.0)
[2017-12-25 07:19] LABS: ALBUMIN 3.1 GM/DL (3.4-5.0); BICARBONATE 29.6 MEQ/L (21.0-32.0); CALCIUM 9.1 MG/DL (8.5-10.1); CREATININE 1.6 MG/DL (0.50-1.00)
--- NOTE | 2017-12-25 07:29 | PD.FRAIL ---
Date: Dec 25, 2017 Height: 172.72 cm Weight: 87.1 kg BMI: 29.2 Assessment Performed: Inpatient Days in Hospital at Exam: 3 Albumin 12/25/17 05:12: Blood Urea Nitrogen 34, Creatinine 1.60, Random Glucose 116, Albumin 3.1, Calcium Level 9.1, Sodium Level 137, Potassium Level 3.7, Chloride Level 97, Carbon Dioxide Level 29.6 Pass/Fail: Fail [place] Activities Daily Living [place] ADL Score: Bathing(bathes self/help in single area): [place] (1), Dressing(gets/puts clothes on self): [place] (1), Toileting(goes without help): [place] ( 1), Transferring(unassisted or [facility] aides): [place] (1), Continence( complete self-control): [place] (1), Feeding(self, prep by another allowed) : [place] (1), Total: 6 Pass/Fail: Pass (pt lives indepently in single story house. 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) Manager Distribution Strength Grasp 1: 12 Grasp 2: 10 Grasp 3: 12 Average: 11.3 Pass/Fail: Fail 15-Foot Walk 15-Foot Walk (seconds): 12 (pt uses standard walker, slow gait) Pass/Fail: Fail Total Frailty Total Frailty (out of 4): 3 Frailty Index Score Reference Manager Distribution Strength: BMI: <=23 Cutoff for project portfolio analyst strength(Kg): <=17 BMI: 23.1-26 Cutoff for project portfolio analyst strength(Kg): <=17.3 BMI: 26.1-29 Cutoff for project portfolio analyst strength(Kg): <=18 BMI: >29 Cutoff for project portfolio analyst strength(Kg): <=21 15-Foot Walk: Height: <=159 cm 15-Foot Walk Cutoff Time: >=7 seconds Height: >159 cm 15-Foot Walk Cutoff Time: >=6 seconds Darrell Miranda RN Dec 25, 2017 07:28
[2017-12-25] MEDS: RESP: ALBUTEROL 2.5 MG/IPRATROPIUM 0.5 MG NEB (SCH) NEB ×3 (07:44→19:31)
--- NOTE | 2017-12-25 08:02 | HHI.PR ---
Subjective Remarks The patient is seen now the chair, says she feels less short of breath today. No chest pain overnight or pressure. No nausea, no lightheadedness. Has a good urine output. Denies fever or chills. Objective Vitals Vital Signs Date Time Temp Pulse Resp B/P (MAP) Pulse Ox O2 Delivery O2 Flow Rate FiO2 12/25/17 06:01 56 12/25/17 05:44 57 12/25/17 04:13 52 12/25/17 03:46 97.8 56 129/65 (86) 94 12/25/17 03:00 53 12/25/17 01:03 54 12/25/17 00:04 97.5 54 102/51 (68) 94 12/25/17 00:00 52 12/24/17 23:00 47 12/24/17 22:00 52 12/24/17 21:00 52 12/24/17 20:35 54 122/54 (76) 90 12/24/17 20:00 54 12/24/17 19:45 94 Nasal Cannula 2.00 12/24/17 19:00 54 12/24/17 18:00 63 12/24/17 17:00 60 12/24/17 16:06 63 12/24/17 16:06 98.1 63 20 124/57 (79) 94 12/24/17 15:00 60 12/24/17 14:00 56 12/24/17 13:30 98.0 59 131/60 (83) 94 12/24/17 11:30 97.9 56 20 119/56 (77) 93 12/24/17 11:30 56 12/24/17 11:00 52 12/24/17 10:00 62 12/24/17 09:00 56 12/24/17 08:38 21 I/O 12/24/17 12/24/17 12/24/17 12/25/17 12/25/17 12/25/17 07:00 15:00 23:00 07:00 15:00 23:00 Intake Total 240 ml 600 ml 240 ml Output Total 1050 ml 950 ml 300 ml Balance -810 ml -350 ml -60 ml Intake Oral 240 ml 300 ml 240 ml IV Total 300 ml Output Urine Total 1050 ml 950 ml 300 ml # Bowel Movements 0 Result Diagram: 12/25/17 0512 12/25/17 0512 Imaging Last Impressions Chest X-Ray 12/22/17 0720 Signed Impressions: Service Date/Time: Friday, December 22, 2017 07:24 - CONCLUSION: 1. Moderate severity diffuse interstitial opacities and mild bibasilar atelectasis. 2. Small apical pneumothorax probable on the right and possible on the left. Doroteo Rico MD CT Angiography 12/22/17 0000 Signed Impressions: Service Date/Time: Friday, December 22, 2017 09:17 - CONCLUSION: 1. No evidence for pulmonary embolism. 2. Bibasilar consolidation with interlobular septal thickening and small pleural effusions likely CHF Froy Perez MD Objective Remarks GENERAL: This is a well-nourished, well-developed patient, in no apparent distress. CARDIOVASCULAR: Regular rate and rhythm without gallops or rubs but a loud systolic murmur RESPIRATORY: Clear to auscultation. Breath sounds equal bilaterally. No wheezes , rales, or rhonchi. GASTROINTESTINAL: Abdomen soft, non-tender, nondistended. Normal active bowel sounds MUSCULOSKELETAL: Extremities without clubbing, cyanosis, or edema. NEURO: Alert & Oriented x4 to person, place, time, situation. Moves all ext x4 A/P Problem List: (1) Acute on chronic diastolic congestive heart failure ICD Code: I50.33 - Acute on chronic diastolic (congestive) heart failure (2) Hyperkalemia ICD Code: E87.5 - Hyperkalemia Status: Acute Assessment and Plan (1) Acute on chronic diastolic congestive heart failure ICD Code: I50.33 - Acute on chronic diastolic (congestive) heart failure Plan: Likely due to aortic stenosis, continue evaluation for aortic valve treatment Continue current medications S/p cardiac cath 12/24/17 S/p TAVR Ativan for anxiety as need Hold BB as noted grupo and also with low BP Will adjust meds (2) Hyperkalemia ICD Code: E87.5 - Hyperkalemia Status: Acute Plan: Improved Discharge Planning Status post cardiac catheterization by Dr Prado on 12/24/17, clean cath Plan for TAVR as OP. Patient to follow up as OP with CTS and cardiology Discussed with the patient, nurse, Dr Prado, Dr Edward SÁNCHEZ plan per Dr Johan SÁNCHEZ tomorrow if improves, continue diuresis Morenita Good MD Dec 25, 2017 08:02
--- NOTE | 2017-12-25 08:17 | MB ---
cc: JANET LIVE DATE OF CONSULTATION 12/24/17 1932 HISTORY OF PRESENT ILLNESS An 87-year-old female, patient of Dr. Coello, Dr. Durham, who was recently admitted for CHF exacerbation December 07. She was treated and diuresed. At that time, she had an echocardiogram which showed an ejection fraction of 60-65%, mild mitral regurgitation, severe aortic valve stenosis with an aortic valve area 0.73, aortic valve mean gradient of 42, some mild aortic insufficiency, mild tricuspid regurgitation. Pulmonary artery pressures of 63. She apparently was readmitted with CHF exacerbation, pulmonary edema. Despite being discharged on Lasix, she also had new onset of atrial fibrillation and started on Eliquis. Her BNP was 768 on admission. Troponins were negative. She underwent cardiac cath today which showed left main disease of 30%, proximal LAD 30%, trivial disease in the diagonal circ and OM, ejection fraction on cath was 55%. The RA pressures of five, pulmonary artery pressures of 27/12 with a mean of 18, wedge pressure 12. Cardiac output of 5.3 with an index of 2.8. We were consulted to evaluate for possible transcatheter aortic valve replacement consideration. PAST MEDICAL HISTORY 1. Two admissions with congestive heart failure, 2. History of CVA in 1975 with no residual 3. Atrial fibrillation on Eliquis 4. COPD, 5. Hypertension, 6. Hyperlipidemia, 7. Diabetes mellitus diet-controlled PAST SURGICAL HISTORY 1. Bladder surgery, 2. Hysterectomy, 3. Appendectomy. ALLERGIES CODEINE MEDICATIONS home medications 1. Combivent inhaler 2. Eliquis 3. Atorvastatin. 4. Metoprolol. 5. Benazepril. 6. Aspirin. 7. Potassium. 8. Vitamins 9. Vitamin D. 10. Multivitamin 11. Krill oil 12. Recently on Lasix 20 mg. FAMILY HISTORY Mother from heart disease. Father from a gunshot wound. SOCIAL HISTORY The patient . No children. She does have two very close nieces at her bedside. She smoked one-pack for 70 years. She is now down to two cigarettes. No alcohol. She lives alone. She does have a sfdc architect that comes in. She does do some light housekeeping, does do her dishes. She does use a walker. She no longer drives. She does not have a regular exercise program REVIEW OF SYSTEMS GENERAL: No night sweats, fever, heat and cold intolerance. SKIN: No psoriasis, itching or hives. HEENT: No blurred vision, hearing loss. She does have full set of dentures. RESPIRATORY: Positive for shortness of breath. CARDIOVASCULAR: No chest pain. No paroxysmal nocturnal dyspnea. She has occasional lower extremity edema. GASTROINTESTINAL: No diarrhea, vomiting. GENITOURINARY: No burning, frequency, urgency CONTINUOUS DRIER HELPER: Positive for history of prior stroke. ENDOCRINOLOG: Positive for diet-controlled diabetes mellitus. PHYSICAL EXAMINATION VITAL SIGNS: Blood pressure 124/60, heart rate 60, temperature max 98.1, O2 sat 94 on room air. GENERAL: Patient is awake, alert in no acute distress. HEENT: Head is normocephalic, atraumatic. Pupils are equal and reactive. Oral mucosa pink, moist. She has full set of dentures. NECK: Supple. No JVD. CARDIAC: Heart sounds S1, S2 with a grade 3/6 harsh systolic murmur best noted in the left sternal border. LUNGS: Diminished in the bases, otherwise, clear to auscultation. ABDOMEN: Soft, obese, nontender. She has a well-healed scar at the right upper abdomen. EXTREMITIES: Trace edema bilaterally. SKIN: She has significant ecchymotic areas and very poor skin turgor. Good distal pulses. LABORATORY DATA Hemoglobin 14, hematocrit of 42, white cell count 6.5, platelet count 139. Sodium 136, potassium 3.6, BUN 26, creatinine 1.43. Troponin is negative. BNP is 768, INR 1.0. IMAGING STUDIES The patient had a CT angiography which showed no evidence of pulmonary edema. She had some bibasilar consolidation and some small pleural effusion, likely CHF. CARDIOLOGY STUDIES EKG showed sinus rhythm, sinus bradycardia, no acute changes. IMPRESSION An 87 year-old female with severe aortic stenosis. Valve area 0.73, mean gradient of 42, ejection fraction of 50% on the cardiac cath. The patient's STS risk of mortality is 8.5, morbidity of 33. Her risk factors include concurrent admissions with congestive heart failure, atrial fibrillation, advanced age, sedentary lifestyle, hypertension, COPD, chronic tobacco abuse. RECOMMENDATION Transcatheter aortic valve replacement and further discussion as per Dr. Janet Live. Dictated by DOMONIQUE Lemus Janet HMD ELIZABETH Preston /4:26 PM /8:09
[2017-12-25] MEDS: ASPIRIN EC 81 MG TABEC PO SCH (09:09)
[2017-12-25] MEDS: SODIUM CHLORIDE 0.9% FLUSH 10 ML FLUSH IV FLUSH SCH ×2 (09:10→21:31)
--- NOTE | 2017-12-25 11:20 | HHI.DS ---
Discharge Summary Admission Date Dec 23, 2017 at 09:52 Discharge Date: Dec 25, 2017 Admitting Diagnosis CHF exacerbation. Pulmonary edema, Pleural Effusions. (1) Acute on chronic diastolic congestive heart failure ICD Code: I50.33 - Acute on chronic diastolic (congestive) heart failure (2) Hyperkalemia ICD Code: E87.5 - Hyperkalemia Status: Acute Procedures none Brief History - From Admission Written by Jorge Barreto, acting as scribe for Dr. Davalos on 12/22/17 at 13: 25. This is a rather pleasant 87-year-old female with known history of hypertension, hyperlipidemia, congestive heart failure, atrial fibrillation, history CVA, tobacco use, chronic obstructive pulmonary disease who came to emergency department because of shortness of breath and dyspnea. Patient was just recently admitted the hospital on December 07, 2017 for similar symptoms. Patient states that she was discharged home with home health care, follow-up with cardiology, she was given a weight scale that reports to her primary medical doctor's office on a daily basis and she indicates that she has gained approximately 1 pound daily. She does drink at least 4 bottles of water daily, 2 big glasses of sweet tea and a cup of coffee on a daily basis. Patient does not indicate that she is to be on a fluid restriction. Patient felt that she needed to drink more fluid to flush her system. She indicates that her heart doctor did discontinue her water pill recently. She does have a follow-up with Dr. Coello tomorrow. However patient was doing quite well until she got up to lay on the couch to sleep last night when she laid down she could not breathe. She had to sit up. She could not sleep throughout the rest of my tissue short of breath. She called her niece, who came over this morning and because she was still short of breath brought her to the emergency department for evaluation. Patient had workup performed which did indicate acute congestive heart failure, hyperkalemia. Patient does indicate that she had orthopnea, does not indicate any dyspnea on exertion. She indicates that she has had increased lower extremity edema since yesterday. States that she is significantly weak where she cannot ambulate at all, she can only move with the use of her walker. States that she is rather non-mobile every day. Just sits in her [place] room. Patient was recommended observation for further evaluation and management. CBC/BMP: 12/25/17 0512 12/25/17 0512 Significant Findings Laboratory Tests Test 12/22/17 14:30 12/22/17 20:45 12/23/17 06:10 12/24/17 04:26 Red Blood Count 5.97 MIL/MM3 (4.00-5.30) 5.63 MIL/MM3 (4.00-5.30) Mean Corpuscular Volume 75.6 FL (80.0-100.0) 74.6 FL (80.0-100.0) Mean Corpuscular Hemoglobin 24.5 PG (27.0-34.0) 24.8 PG (27.0-34.0) Red Cell Distribution Width 19.0 % (11.6-17.2) 20.0 % (11.6-17.2) Platelet Count 144 TH/MM3 (150-450) 139 TH/MM3 (150-450) Monocytes % 14 % (0-8) Eosinophils % 5 % (0-4) Ovalocytes 1+ (NORMAL) Blood Urea Nitrogen 21 MG/DL (7-18) 26 MG/DL (7-18) Creatinine 1.40 MG/DL (0.50-1.00) 1.43 MG/DL (0.50-1.00) Random Glucose 122 MG/DL (74-106) 111 MG/DL (74-106) Estimat Glomerular Filtration Rate 36 ML/MIN (>89) 35 ML/MIN (>89) Monocytes (%) (Auto) 14.0 % (0.0-8.0) Eosinophils (%) (Auto) 9.7 % (0.0-4.0) Basophils (%) (Auto) 2.3 % (0.0-2.0) Eosinophils # (Auto) 0.6 TH/MM3 (0-0.4) Chloride Level 97 MEQ/L (98-107) Test 12/25/17 05:12 Red Blood Count 5.62 MIL/MM3 (4.00-5.30) Mean Corpuscular Volume 75.3 FL (80.0-100.0) Mean Corpuscular Hemoglobin 25.2 PG (27.0-34.0) Red Cell Distribution Width 20.3 % (11.6-17.2) Platelet Count 142 TH/MM3 (150-450) Monocytes (%) (Auto) 17.3 % (0.0-8.0) Eosinophils (%) (Auto) 12.9 % (0.0-4.0) Basophils (%) (Auto) 2.6 % (0.0-2.0) Monocytes # (Auto) 1.0 TH/MM3 (0-0.9) Eosinophils # (Auto) 0.7 TH/MM3 (0-0.4) Blood Urea Nitrogen 34 MG/DL (7-18) Creatinine 1.60 MG/DL (0.50-1.00) Random Glucose 116 MG/DL (74-106) Albumin 3.1 GM/DL (3.4-5.0) Chloride Level 97 MEQ/L (98-107) Estimat Glomerular Filtration Rate 31 ML/MIN (>89) Imaging Last Impressions Chest X-Ray 12/22/17 0720 Signed Impressions: Service Date/Time: Friday, December 22, 2017 07:24 - CONCLUSION: 1. Moderate severity diffuse interstitial opacities and mild bibasilar atelectasis. 2. Small apical pneumothorax probable on the right and possible on the left. Doroteo Rico MD CT Angiography 12/22/17 0000 Signed Impressions: Service Date/Time: Friday, December 22, 2017 09:17 - CONCLUSION: 1. No evidence for pulmonary embolism. 2. Bibasilar consolidation with interlobular septal thickening and small pleural effusions likely CHF Froy Perez MD PE at Discharge GENERAL: This is a well-nourished, well-developed patient, in no apparent distress. CARDIOVASCULAR: Regular rate and rhythm without gallops or rubs but a loud systolic murmur RESPIRATORY: Clear to auscultation. Breath sounds equal bilaterally. No wheezes , rales, or rhonchi. GASTROINTESTINAL: Abdomen soft, non-tender, nondistended. Normal active bowel sounds MUSCULOSKELETAL: Extremities without clubbing, cyanosis, or edema. NEURO: Alert & Oriented x4 to person, place, time, situation. Moves all ext x4 Pt update on day of discharge Feels better today and no chest pain or shortness of breath overnight. No lightheadedness. Edema improved. Did not have a bowel movement yet. No nausea or vomiting. Hospital Course (1) Acute on chronic diastolic congestive heart failure ICD Code: I50.33 - Acute on chronic diastolic (congestive) heart failure Plan: Likely due to aortic stenosis, continue evaluation for aortic valve treatment Continue current medications S/p cardiac cath 12/24/17 Plan for TAVR to follow up as OP Ativan for anxiety as need Hold BB as noted grupo and also with low BP Will adjust meds (2) Hyperkalemia ICD Code: E87.5 - Hyperkalemia Status: Acute Plan: Improved, monitor and replace. Constipation. Laxatives/stool softeners as needed. Status post cardiac catheterization by Dr Prado on 12/24/17, clean cath Plan for TAVR as OP. Patient to follow up as OP with CTS and cardiology Pt Condition on Discharge: Stable Discharge Disposition: Discharge to SNF Discharge Time: > 30 minutes Discharge Instructions DIET: Follow Instructions for: Heart Healthy Diet Activities you can perform: Regular-No Restrictions Follow up Referrals: Cardiology - 1 Week PCP Follow-up - 2-3 Days SNF/RETIREMENT/ @ [facility]/ with [facility] Home New Medications: Furosemide (Lasix) 40 Mg Tab 40 MG PO DAILY for chf, #30 TAB 0 Refills Continued Medications: Apixaban (Eliquis) 2.5 Mg Tab 2.5 MG PO BID for Blood Clot Prevention, TAB [address] (Aspirin 81) 81 Mg Tabdr 81 MG PO DAILY, TAB 0 Refills Atorvastatin (Atorvastatin) 40 Mg Tab 40 MG PO HS for Cholesterol Management, #30 TAB 0 Refills B Complex W-C No.20/Folic Acid (Mynephrocaps Softgel) 1 Mg Capsule Benazepril (Benazepril) 10 Mg Tab 10 MG PO DAILY for Blood Pressure Management, #30 TAB 0 Refills Cholecalciferol (D3 Super Strength) 2,000 Unit Cap 2000 UNITS PO DAILY for Nutritional Supplement, #30 CAP 0 Refills Ipratropium-Albuterol Inh (Combivent Respimat Inh) 20-100 Halfway/Act Aero 1 PUFF INH QID for Asthma Management, #1 INHALER 0 Refills Krill/Om-3/Dha/Epa/Phospho/Ast (Krill Oil 1,000 mg Softgel) 1,000-170MG Capsule Lactobacillus Acidophilus (Lactobacillus Acidophilus) 1 Billion Cell Tab 1 TAB PO TIDAC for Nutritional Supplement, #30 TAB 0 Refills Metoprolol Tartrate (Metoprolol Tartrate) 50 Mg Tab 50 MG PO BID, #60 TAB 0 Refills Multiple Vitamins W/ Minerals (Centrum Silver Adult 50+) 0.4 Mg-300 Mcg-250 Mcg Tab Potassium Chloride ER (Potassium Chloride ER) 10 Meq Cap 10 MEQ PO DAILY for Electrolyte Replacement, #30 CAP 0 Refills Morenita Good MD Dec 25, 2017 11:20
[2017-12-25] MEDS: FUROSEMIDE 40 MG/4 ML VIAL IVP SCH (11:22)
--- NOTE | 2017-12-25 11:22 | HHI.FF ---
Face to Face Verification Diagnosis: (1) Hyperglycemia (2) Acute respiratory failure (3) CHF (congestive heart failure) (4) Systolic CHF (5) Hyperkalemia (6) Pleural effusion (7) CHF exacerbation (8) DM (diabetes mellitus) (9) Acute on chronic diastolic congestive heart failure (10) Severe aortic stenosis Physical Therapy Order: Evaluate and Treat Home Health Nursing Order: Medical education Signs/symptoms of disease process Medication education-adverse effect Nursing assessment with vital signs I have seen patient Aurea Parker on 12/25/17. My clinical findings support the need for the requested home health care services because: Ltd mobility - disease progression Patient has SOB I certify that my clinical findings support that this patient is homebound because: Post-op weakness Morenita Good MD Dec 25, 2017 11:22
[2017-12-25] MEDS: LISINOPRIL 10 MG TAB PO SCH (11:23)
[2017-12-25] MEDS ORDERED: FURO1TAB60 PO (11:24)
[2017-12-25] MEDS: METOPROLOL TARTRATE 50 MG TAB PO SCH (11:25)
--- NOTE | 2017-12-25 12:34 | PD.CARD.PN ---
Subjective Subjective Remarks Overall doing well, no chest pain/SOB No complaints Objective Medications Current Medications Medications (Trade) Dose Ordered Sig/Xiang Route Start Time Stop Time Status Last Admin (NS Flush) 2 ml UNSCH PRN IV FLUSH 12/22/17 12:30 (NS Flush) 2 ml BID IV FLUSH 12/22/17 21:00 12/25/17 09:10 (Lasix Inj) 40 mg BID@09,18 IVP 12/22/17 18:00 12/25/17 11:22 (Duoneb Neb) 1 ampule Q6HR WHILE AWAKE NEB NEB 12/22/17 20:00 12/24/17 13:41 (Duoneb Neb) 1 ampule Q2HR NEB PRN NEB 12/22/17 14:15 12/25/17 05:41 (Ecotrin Ec) 81 mg DAILY PO 12/22/17 14:15 12/25/17 09:09 (Lipitor) 40 mg HS PO 12/22/17 21:00 12/24/17 19:36 (Prinivil) 10 mg DAILY PO 12/22/17 14:15 12/25/17 11:23 (Lopressor) 50 mg BID PO 12/22/17 14:15 12/24/17 08:33 (Ativan) 0.5 mg Q8H PRN PO 12/24/17 10:00 12/24/17 10:18 (Atropine Inj) 0.5 mg UNSCH PRN IV PUSH 12/24/17 13:15 Sodium Chloride 250 ml @ 500 mls/hr ONCE PRN IV 12/24/17 13:15 12/25/17 13:14 (Zofran Inj) 4 mg Q4H PRN IV PUSH 12/24/17 13:15 Vital Signs / I&O Vital Signs Date Time Temp Pulse Resp B/P (MAP) Pulse Ox O2 Delivery O2 Flow Rate FiO2 12/25/17 11:13 97.8 64 18 94/46 (62) 94 12/25/17 11:00 62 12/25/17 10:00 62 12/25/17 09:12 98.0 65 18 94/46 (62) 92 12/25/17 09:00 66 12/25/17 08:00 56 12/25/17 07:00 52 12/25/17 06:01 56 12/25/17 05:44 57 12/25/17 04:13 52 12/25/17 03:46 97.8 56 129/65 (86) 94 12/25/17 03:00 53 12/25/17 01:03 54 12/25/17 00:04 97.5 54 102/51 (68) 94 12/25/17 00:00 52 12/24/17 23:00 47 12/24/17 22:00 52 12/24/17 21:00 52 12/24/17 20:35 54 122/54 (76) 90 12/24/17 20:00 54 12/24/17 19:45 94 Nasal Cannula 2.00 12/24/17 19:00 54 12/24/17 18:00 63 12/24/17 17:00 60 12/24/17 16:06 63 12/24/17 16:06 98.1 63 20 124/57 (79) 94 12/24/17 15:00 60 12/24/17 14:00 56 12/24/17 13:30 98.0 59 131/60 (83) 94 I/O 12/24/17 12/24/17 12/24/17 12/25/17 12/25/17 12/25/17 07:00 15:00 23:00 07:00 15:00 23:00 Intake Total 240 ml 600 ml 240 ml Output Total 1050 ml 950 ml 300 ml Balance -810 ml -350 ml -60 ml Intake Oral 240 ml 300 ml 240 ml IV Total 300 ml Output Urine Total 1050 ml 950 ml 300 ml # Bowel Movements 0 Physical Exam GENERAL: NAD, AAOx3 SKIN: Warm and dry. HEAD: Atraumatic. Normocephalic. EYES: Pupils equal and round. No scleral icterus. No injection or drainage. ENT: No nasal bleeding or discharge. Mucous membranes pink and moist. NECK: Trachea midline. No JVD. CARDIOVASCULAR: Regular rate and rhythm. 3/6 crescendo-decrescendo murmur to the RSB RESPIRATORY: No accessory muscle use. Clear to auscultation. Breath sounds equal bilaterally. GASTROINTESTINAL: Abdomen soft, non-tender, nondistended. Hepatic and splenic margins not palpable. MUSCULOSKELETAL: Extremities without clubbing, cyanosis, or edema. No obvious deformities. Right femoral no hematoma, distally pulses intact NEUROLOGICAL: Awake and alert. No obvious cranial nerve deficits. Motor grossly within normal limits. Five out of 5 muscle strength in the arms and legs. Normal speech. PSYCHIATRIC: Appropriate mood and affect; insight and judgment normal. Laboratory Laboratory Tests Test 12/25/17 05:12 White Blood Count 5.5 TH/MM3 Red Blood Count 5.62 MIL/MM3 Hemoglobin 14.1 GM/DL Hematocrit 42.3 % Mean Corpuscular Volume 75.3 FL Mean Corpuscular Hemoglobin 25.2 PG Mean Corpuscular Hemoglobin Concent 33.4 % Red Cell Distribution Width 20.3 % Platelet Count 142 TH/MM3 Mean Platelet Volume 9.7 FL Neutrophils (%) (Auto) 33.4 % Lymphocytes (%) (Auto) 33.8 % Monocytes (%) (Auto) 17.3 % Eosinophils (%) (Auto) 12.9 % Basophils (%) (Auto) 2.6 % Neutrophils # (Auto) 1.8 TH/MM3 Lymphocytes # (Auto) 1.8 TH/MM3 Monocytes # (Auto) 1.0 TH/MM3 Eosinophils # (Auto) 0.7 TH/MM3 Basophils # (Auto) 0.1 TH/MM3 CBC Comment DIFF FINAL Differential Comment Blood Urea Nitrogen 34 MG/DL Creatinine 1.60 MG/DL Random Glucose 116 MG/DL Albumin 3.1 GM/DL Calcium Level 9.1 MG/DL Sodium Level 137 MEQ/L Potassium Level 3.7 MEQ/L Chloride Level 97 MEQ/L Carbon Dioxide Level 29.6 MEQ/L Anion Gap 10 MEQ/L Estimat Glomerular Filtration Rate 31 ML/MIN Assessment and Plan Problem List: (1) Severe aortic stenosis ICD Codes: I35.0 - Nonrheumatic aortic (valve) stenosis (2) Acute on chronic diastolic congestive heart failure ICD Codes: I50.33 - Acute on chronic diastolic (congestive) heart failure (3) CHF exacerbation ICD Codes: I50.9 - Heart failure, unspecified (4) Pleural effusion ICD Codes: J90 - Pleural effusion, not elsewhere classified Status: Acute (5) DM (diabetes mellitus) ICD Codes: E11.9 - Type 2 diabetes mellitus without complications (6) Tobacco abuse ICD Codes: Z72.0 - Tobacco use Assessment and Plan 1) Acute on chronic CHF with severe 2) No significant CAD on catheterization 3) Plan for TAVR over AVR secondary to comorbidities and frailty (Failed 3/4 frailty tests) 4) Con't diuresis 5) Seen by CT surgery 6) Hypotension, most likely secondary to meds Will decrease Lopressor 7) If stable tomorrow, consideration of discharge If not, then plan to keep and have CTA for TAVR done Thursday Francisco Javier Han DO Dec 25, 2017 12:34
[2017-12-25] MEDS: APIXABAN 2.5 MG TABLET PO SCH (21:31)
[2017-12-25] MEDS: ATORVASTATIN 40 MG TAB PO SCH (21:31)
[2017-12-25] MEDS: METOPROLOL TARTRATE 25 MG TAB PO SCH (21:32)
[2017-12-26] VITALS (30 sets, daily range): BP systolic 106–129; BP diastolic 51–70; PULSE 54–76; RESP 16–20; TEMP 97.6–98.5; O2SAT 92–96
[2017-12-26 07:27] LABS: BASOPHIL # 0.2 TH/MM3 (0-0.2); BASOPHIL % 3.8 % (0.0-2.0); EOSINOPHIL # 0.6 TH/MM3 (0-0.4); EOSINOPHIL % 12.3 % (0.0-4.0); HEMOGLOBIN 13.8 GM/DL (11.6-15.3); LYMPH % 27.2 % (9.0-44.0); LYMPHOCYTE # 1.4 TH/MM3 (1.0-4.8); MEAN CELL VOLUME 76.4 FL (80.0-100.0); MEAN CORPUSCULAR HEMOGLOBIN 24.6 PG (27.0-34.0); MEAN CORPUSCULAR HGB CONC 32.1 % (32.0-36.0); MEAN PLATELET VOLUME 8.8 FL (7.0-11.0); MONO % 17.6 % (0.0-8.0); MONOCYTE # 0.9 TH/MM3 (0-0.9); NEUT % 39.1 % (16.0-70.0); PLATELET COUNT 120 TH/MM3 (150-450); RED BLOOD COUNT 5.63 MIL/MM3 (4.00-5.30); RED CELL DISTRIBUTION WIDTH 19.9 % (11.6-17.2)
[2017-12-26 07:40] LABS: BICARBONATE 24.3 MEQ/L (21.0-32.0); CALCIUM 8.7 MG/DL (8.5-10.1); CREATININE 1.46 MG/DL (0.50-1.00)
[2017-12-26] MEDS: RESP: ALBUTEROL 2.5 MG/IPRATROPIUM 0.5 MG NEB (SCH) NEB ×3 (08:18→18:56)
[2017-12-26] MEDS: APIXABAN 2.5 MG TABLET PO SCH ×2 (09:06→21:11)
[2017-12-26] MEDS: LISINOPRIL 10 MG TAB PO SCH (09:07)
[2017-12-26] MEDS: ASPIRIN EC 81 MG TABEC PO SCH (09:07)
[2017-12-26] MEDS: METOPROLOL TARTRATE 25 MG TAB PO SCH (09:07)
[2017-12-26] MEDS: FUROSEMIDE 40 MG TAB PO SCH (09:07)
--- NOTE | 2017-12-26 09:07 | PD.CARD.PN ---
Subjective Subjective Remarks Pt feels well, wants to go home. Objective Medications Current Medications Medications (Trade) Dose Ordered Sig/Xiang Route Start Time Stop Time Status Last Admin (NS Flush) 2 ml UNSCH PRN IV FLUSH 12/22/17 12:30 (NS Flush) 2 ml BID IV FLUSH 12/22/17 21:00 12/25/17 21:31 (Duoneb Neb) 1 ampule Q6HR WHILE AWAKE NEB NEB 12/22/17 20:00 12/26/17 08:18 (Duoneb Neb) 1 ampule Q2HR NEB PRN NEB 12/22/17 14:15 12/25/17 05:41 (Ecotrin Ec) 81 mg DAILY PO 12/22/17 14:15 12/25/17 09:09 (Lipitor) 40 mg HS PO 12/22/17 21:00 12/25/17 21:31 (Prinivil) 10 mg DAILY PO 12/22/17 14:15 12/25/17 11:23 (Ativan) 0.5 mg Q8H PRN PO 12/24/17 10:00 12/24/17 10:18 (Atropine Inj) 0.5 mg UNSCH PRN IV PUSH 12/24/17 13:15 (Zofran Inj) 4 mg Q4H PRN IV PUSH 12/24/17 13:15 (Lopressor) 25 mg BID PO 12/25/17 21:00 12/25/17 21:32 (Eliquis) 2.5 mg BID PO 12/25/17 21:00 12/25/17 21:31 (Lasix) 40 mg DAILY PO 12/26/17 09:00 Vital Signs / I&O Vital Signs Date Time Temp Pulse Resp B/P (MAP) Pulse Ox O2 Delivery O2 Flow Rate FiO2 12/26/17 09:03 93 Room Air 12/26/17 08:59 98.1 75 18 120/62 (81) 93 12/26/17 08:19 92 Nasal Cannula 2.00 12/26/17 06:00 54 12/26/17 05:00 54 12/26/17 04:00 68 12/26/17 03:39 64 16 116/62 (80) 94 12/26/17 03:00 56 12/26/17 02:00 58 12/26/17 01:00 54 12/26/17 00:00 58 12/25/17 23:25 67 16 121/62 (81) 93 12/25/17 23:25 93 Room Air 12/25/17 23:00 63 12/25/17 22:00 60 12/25/17 21:00 64 12/25/17 20:00 92 Nasal Cannula 1.00 12/25/17 20:00 70 12/25/17 19:34 94 21 12/25/17 19:30 98.6 69 16 109/52 (71) 92 12/25/17 19:00 73 12/25/17 18:00 72 12/25/17 17:00 74 12/25/17 16:19 97.8 78 18 124/62 (82) 92 12/25/17 16:00 90 12/25/17 15:00 71 12/25/17 14:00 72 12/25/17 13:00 68 12/25/17 12:00 62 12/25/17 11:13 97.8 64 18 94/46 (62) 94 12/25/17 11:00 62 12/25/17 10:00 62 12/25/17 09:12 98.0 65 18 94/46 (62) 92 I/O 12/25/17 12/25/17 12/25/17 12/26/17 12/26/17 12/26/17 07:00 15:00 23:00 07:00 15:00 23:00 Intake Total 240 ml 720 ml 240 ml Output Total 300 ml 300 ml 600 ml Balance -60 ml 420 ml -360 ml Intake Oral 240 ml 720 ml 240 ml Output Urine Total 300 ml 300 ml 600 ml Physical Exam GENERAL: This is a well-nourished, well-developed patient, in no apparent distress. CARDIOVASCULAR: Regular rate and rhythm 3/6 HERMAN RESPIRATORY: Clear to auscultation. Breath sounds equal bilaterally. No wheezes , rales, or rhonchi. GASTROINTESTINAL: Abdomen soft, non-tender, nondistended. Normal active bowel sounds MUSCULOSKELETAL: Extremities without clubbing, cyanosis, or edema. NEURO: Alert & Oriented x4 to person, place, time, situation. Moves all ext x4 Laboratory Laboratory Tests Test 12/26/17 06:30 White Blood Count 5.0 TH/MM3 Red Blood Count 5.63 MIL/MM3 Hemoglobin 13.8 GM/DL Hematocrit 43.0 % Mean Corpuscular Volume 76.4 FL Mean Corpuscular Hemoglobin 24.6 PG Mean Corpuscular Hemoglobin Concent 32.1 % Red Cell Distribution Width 19.9 % Platelet Count 120 TH/MM3 Mean Platelet Volume 8.8 FL Neutrophils (%) (Auto) 39.1 % Lymphocytes (%) (Auto) 27.2 % Monocytes (%) (Auto) 17.6 % Eosinophils (%) (Auto) 12.3 % Basophils (%) (Auto) 3.8 % Neutrophils # (Auto) 2.0 TH/MM3 Lymphocytes # (Auto) 1.4 TH/MM3 Monocytes # (Auto) 0.9 TH/MM3 Eosinophils # (Auto) 0.6 TH/MM3 Basophils # (Auto) 0.2 TH/MM3 CBC Comment DIFF FINAL Differential Comment Blood Urea Nitrogen 38 MG/DL Creatinine 1.46 MG/DL Random Glucose 113 MG/DL Calcium Level 8.7 MG/DL Sodium Level 136 MEQ/L Potassium Level 3.9 MEQ/L Chloride Level 102 MEQ/L Carbon Dioxide Level 24.3 MEQ/L Anion Gap 10 MEQ/L Estimat Glomerular Filtration Rate 34 ML/MIN Imaging Last Impressions Chest X-Ray 12/22/17 0720 Signed Impressions: Service Date/Time: Friday, December 22, 2017 07:24 - CONCLUSION: 1. Moderate severity diffuse interstitial opacities and mild bibasilar atelectasis. 2. Small apical pneumothorax probable on the right and possible on the left. Doroteo Rico MD CT Angiography 12/22/17 0000 Signed Impressions: Service Date/Time: Friday, December 22, 2017 09:17 - CONCLUSION: 1. No evidence for pulmonary embolism. 2. Bibasilar consolidation with interlobular septal thickening and small pleural effusions likely CHF Froy Perez MD Assessment and Plan Problem List: (1) Severe aortic stenosis ICD Codes: I35.0 - Nonrheumatic aortic (valve) stenosis Plan: TAVR w/u ongoing (2) Acute on chronic diastolic congestive heart failure ICD Codes: I50.33 - Acute on chronic diastolic (congestive) heart failure (3) CHF exacerbation ICD Codes: I50.9 - Heart failure, unspecified Plan: current compensated. (4) Pleural effusion ICD Codes: J90 - Pleural effusion, not elsewhere classified Status: Acute (5) DM (diabetes mellitus) ICD Codes: E11.9 - Type 2 diabetes mellitus without complications (6) Tobacco abuse ICD Codes: Z72.0 - Tobacco use Assessment and Plan Ok to d/c home, TAVR w/u ongoing. Will see in my office in 1-2 weeks. Mick Coello MD Dec 26, 2017 09:07
[2017-12-26] MEDS: SODIUM CHLORIDE 0.9% FLUSH 10 ML FLUSH IV FLUSH SCH ×2 (09:08→21:09)
[2017-12-26] MEDS ORDERED: LACTULOSE SYRUP 20 GM/30 ML CUP PO PRN (10:30)
[2017-12-26] MEDS ORDERED: BISACODYL 10 MG SUPP RECTAL PRN (10:30)
[2017-12-26] MEDS ORDERED: NALOXONE HCL 0.4 MG/ML AMP IV PUSH PRN (10:30)
[2017-12-26] MEDS ORDERED: SENNOSIDES 8.6 MG TAB PO PRN (10:30)
[2017-12-26] MEDS ORDERED: MAGNESIUM HYDROXIDE SUSP 30 ML CUP PO PRN (10:30)
[2017-12-26] MEDS ORDERED: APIX2.5T PO (10:54)
[2017-12-26] MEDS: DOCUSATE SODIUM 50 MG/SENNA 8.6 MG TAB PO SCH ×2 (11:44→21:00)
[2017-12-26] MEDS: CARVEDILOL 6.25 MG TAB PO SCH (21:10)
[2017-12-26] MEDS: ATORVASTATIN 40 MG TAB PO SCH (21:11)
[2017-12-26] MEDS: LORazepam 0.5 MG TAB PO PRN (23:19)
[2017-12-27] VITALS (30 sets, daily range): BP systolic 93–106; BP diastolic 44–48; PULSE 52–90; RESP 16–18; TEMP 98–98.3; O2SAT 92–95
[2017-12-27] MEDS: DOCUSATE SODIUM 50 MG/SENNA 8.6 MG TAB PO SCH ×2 (09:32→21:00)
[2017-12-27] MEDS: ASPIRIN EC 81 MG TABEC PO SCH (09:32)
[2017-12-27] MEDS: FUROSEMIDE 40 MG TAB PO SCH (09:32)
[2017-12-27] MEDS: APIXABAN 2.5 MG TABLET PO SCH ×2 (09:32→23:06)
[2017-12-27] MEDS: SODIUM CHLORIDE 0.9% FLUSH 10 ML FLUSH IV FLUSH SCH ×2 (09:33→23:07)
--- NOTE | 2017-12-27 09:44 | HHI.PR ---
Subjective Remarks Late entry was seen 12/26/17 in the morning Feels better today and no chest pain or shortness of breath overnight. No lightheadedness. Edema improved. Did not have a bowel movement yet. No nausea or vomiting. Objective Vitals Vital Signs Date Time Temp Pulse Resp B/P (MAP) Pulse Ox O2 Delivery O2 Flow Rate FiO2 12/27/17 09:24 92 Nasal Cannula 2.00 12/27/17 09:24 98.0 68 17 95/48 (64) 92 12/27/17 06:00 52 12/27/17 05:00 56 12/27/17 04:26 62 18 98/45 (62) 93 12/27/17 04:00 70 12/27/17 03:00 56 12/27/17 02:00 56 12/27/17 01:00 58 12/27/17 00:00 56 12/26/17 23:34 63 18 121/58 (79) 94 12/26/17 23:00 59 12/26/17 22:00 60 12/26/17 21:00 60 12/26/17 20:00 94 Nasal Cannula 2.00 12/26/17 20:00 64 12/26/17 20:00 98.5 62 20 106/51 (69) 94 12/26/17 19:00 56 12/26/17 18:56 95 Nasal Cannula 2.00 12/26/17 18:17 66 12/26/17 17:00 68 12/26/17 16:00 74 12/26/17 15:00 62 12/26/17 15:00 98.0 69 17 129/58 (81) 96 12/26/17 14:00 76 12/26/17 13:00 66 12/26/17 12:00 60 12/26/17 11:21 97.6 70 17 112/70 (84) 95 12/26/17 11:00 74 12/26/17 10:00 64 I/O 12/26/17 12/26/17 12/26/17 12/27/17 12/27/17 12/27/17 07:00 15:00 23:00 07:00 15:00 23:00 Intake Total 240 ml 480 ml 240 ml Output Total 600 ml 300 ml 700 ml Balance -360 ml 180 ml -460 ml Intake Oral 240 ml 480 ml 240 ml Output Urine Total 600 ml 300 ml 700 ml # Bowel Movements 2 1 Result Diagram: 12/26/17 0630 12/26/17 0630 Imaging Last Impressions Chest X-Ray 12/22/17 0720 Signed Impressions: Service Date/Time: Friday, December 22, 2017 07:24 - CONCLUSION: 1. Moderate severity diffuse interstitial opacities and mild bibasilar atelectasis. 2. Small apical pneumothorax probable on the right and possible on the left. Doroteo Rico MD CT Angiography 12/22/17 0000 Signed Impressions: Service Date/Time: Friday, December 22, 2017 09:17 - CONCLUSION: 1. No evidence for pulmonary embolism. 2. Bibasilar consolidation with interlobular septal thickening and small pleural effusions likely CHF Froy Perez MD Objective Remarks GENERAL: This is a well-nourished, well-developed patient, in no apparent distress. CARDIOVASCULAR: Regular rate and rhythm without gallops or rubs but a loud systolic murmur RESPIRATORY: Clear to auscultation. Breath sounds equal bilaterally. No wheezes , rales, or rhonchi. GASTROINTESTINAL: Abdomen soft, non-tender, nondistended. Normal active bowel sounds MUSCULOSKELETAL: Extremities without clubbing, cyanosis, or edema. NEURO: Alert & Oriented x4 to person, place, time, situation. Moves all ext x4 Procedures none A/P Problem List: (1) Acute on chronic diastolic congestive heart failure ICD Code: I50.33 - Acute on chronic diastolic (congestive) heart failure (2) Hyperkalemia ICD Code: E87.5 - Hyperkalemia Status: Acute Assessment and Plan (1) Acute on chronic diastolic congestive heart failure ICD Code: I50.33 - Acute on chronic diastolic (congestive) heart failure Plan: Likely due to aortic stenosis, continue evaluation for aortic valve treatment Continue current medications S/p cardiac cath 12/24/17 Plan for TAVR as OP Ativan for anxiety as need DC metoprolol, styarted on 6.25 mg po bid carvedilol. Started entresto will give at DC , stiop benzapril, if not able to have entresto insurance reasons might continue benzapril, to follow up as OP with cardiology Will adjust meds (2) Hyperkalemia ICD Code: E87.5 - Hyperkalemia Status: Acute Plan: Improved Discharge Planning Status post cardiac catheterization by Dr Prado on 12/24/17, clean cath Plan for TAVR as OP. Patient to follow up as OP with CTS and cardiology Discussed with the patient, nurse, Dr Coello covering for Dr Prado Discharge when cleared by cardiology Morenita Good MD Dec 27, 2017 09:44
[2017-12-27] MEDS ORDERED: SACU1TAB PO (09:52)
[2017-12-27] MEDS ORDERED: CARV6.25 PO (09:53)
--- NOTE | 2017-12-27 09:58 | PD.CARD.PN ---
Subjective Subjective Remarks Pt feels well, no complaints. Objective Medications Current Medications Medications (Trade) Dose Ordered Sig/Xiang Route Start Time Stop Time Status Last Admin (NS Flush) 2 ml UNSCH PRN IV FLUSH 12/22/17 12:30 (NS Flush) 2 ml BID IV FLUSH 12/22/17 21:00 12/27/17 09:33 (Duoneb Neb) 1 ampule Q2HR NEB PRN NEB 12/22/17 14:15 12/25/17 05:41 (Ecotrin Ec) 81 mg DAILY PO 12/22/17 14:15 12/27/17 09:32 (Lipitor) 40 mg HS PO 12/22/17 21:00 12/26/17 21:11 (Ativan) 0.5 mg Q8H PRN PO 12/24/17 10:00 12/26/17 23:19 (Atropine Inj) 0.5 mg UNSCH PRN IV PUSH 12/24/17 13:15 (Zofran Inj) 4 mg Q4H PRN IV PUSH 12/24/17 13:15 (Eliquis) 2.5 mg BID PO 12/25/17 21:00 12/27/17 09:32 (Lasix) 40 mg DAILY PO 12/26/17 09:00 12/27/17 09:32 (Narcan Inj) 0.4 mg UNSCH PRN IV PUSH 12/26/17 10:30 (June-Colace) 1 tab BID PO 12/26/17 10:30 12/27/17 09:32 (Milk Of Magnesia Liq) 30 ml Q12H PRN PO 12/26/17 10:30 (Senokot) 17.2 mg Q12H PRN PO 12/26/17 10:30 (Dulcolax Supp) 10 mg DAILY PRN RECTAL 12/26/17 10:30 12/26/17 11:43 (Lactulose Liq) 30 ml DAILY PRN PO 12/26/17 10:30 (Coreg) 6.25 mg Q12HR PO 12/26/17 21:00 12/26/17 21:10 (Entresto 24-26 Mg) 1 tab BID PO 12/27/17 21:00 Vital Signs / I&O Vital Signs Date Time Temp Pulse Resp B/P (MAP) Pulse Ox O2 Delivery O2 Flow Rate FiO2 2/4/18 09:24 92 Nasal Cannula 2.00 12/27/17 09:24 98.0 68 17 95/48 (64) 92 12/27/17 06:00 52 12/27/17 05:00 56 12/27/17 04:26 62 18 98/45 (62) 93 12/27/17 04:00 70 12/27/17 03:00 56 12/27/17 02:00 56 12/27/17 01:00 58 12/27/17 00:00 56 12/26/17 23:34 63 18 121/58 (79) 94 12/26/17 23:00 59 12/26/17 22:00 60 12/26/17 21:00 60 12/26/17 20:00 94 Nasal Cannula 2.00 12/26/17 20:00 64 12/26/17 20:00 98.5 62 20 106/51 (69) 94 12/26/17 19:00 56 12/26/17 18:56 95 Nasal Cannula 2.00 12/26/17 18:17 66 12/26/17 17:00 68 12/26/17 16:00 74 12/26/17 15:00 62 12/26/17 15:00 98.0 69 17 129/58 (81) 96 12/26/17 14:00 76 12/26/17 13:00 66 12/26/17 12:00 60 12/26/17 11:21 97.6 70 17 112/70 (84) 95 12/26/17 11:00 74 12/26/17 10:00 64 I/O 12/26/17 12/26/17 12/26/17 12/27/17 12/27/17 12/27/17 06:59 14:59 22:59 06:59 14:59 22:59 Intake Total 240 ml 480 ml 240 ml Output Total 600 ml 300 ml 700 ml Balance -360 ml 180 ml -460 ml Intake Oral 240 ml 480 ml 240 ml Output Urine Total 600 ml 300 ml 700 ml # Bowel Movements 2 1 Physical Exam GENERAL: This is a well-nourished, well-developed patient, in no apparent distress. CARDIOVASCULAR: Regular rate and rhythm 3/6 HERMAN RESPIRATORY: Clear to auscultation. Breath sounds equal bilaterally. No wheezes , rales, or rhonchi. GASTROINTESTINAL: Abdomen soft, non-tender, nondistended. Normal active bowel sounds MUSCULOSKELETAL: Extremities without clubbing, cyanosis, or edema. NEURO: Alert & Oriented x4 to person, place, time, situation. Moves all ext x4 Imaging Last Impressions Chest X-Ray 12/22/17 0720 Signed Impressions: Service Date/Time: Friday, December 22, 2017 07:24 - CONCLUSION: 1. Moderate severity diffuse interstitial opacities and mild bibasilar atelectasis. 2. Small apical pneumothorax probable on the right and possible on the left. Doroteo Rico MD CT Angiography 12/22/17 0000 Signed Impressions: Service Date/Time: Friday, December 22, 2017 09:17 - CONCLUSION: 1. No evidence for pulmonary embolism. 2. Bibasilar consolidation with interlobular septal thickening and small pleural effusions likely CHF Froy Perez MD Assessment and Plan Problem List: (1) Severe aortic stenosis ICD Codes: I35.0 - Nonrheumatic aortic (valve) stenosis Plan: TAVR w/u ongoing (2) Acute on chronic diastolic congestive heart failure ICD Codes: I50.33 - Acute on chronic diastolic (congestive) heart failure (3) CHF exacerbation ICD Codes: I50.9 - Heart failure, unspecified Plan: currently compensated. (4) Pleural effusion ICD Codes: J90 - Pleural effusion, not elsewhere classified Status: Acute (5) DM (diabetes mellitus) ICD Codes: E11.9 - Type 2 diabetes mellitus without complications (6) Tobacco abuse ICD Codes: Z72.0 - Tobacco use Assessment and Plan Staying to complete TAVR w/u Mick Coello MD Dec 27, 2017 09:58
--- NOTE | 2017-12-27 09:58 | HHI.PR ---
Subjective Remarks Patient in the chair, feels anxious. With lightheadedness when she walked to the bath. Had a BM in the morning no blood in it. Patient says she had a BM yesterday and had some blood, she has a h/o hemorrhoids. No fever or chills. No n/v/d/c. Objective Vitals Vital Signs Date Time Temp Pulse Resp B/P (MAP) Pulse Ox O2 Delivery O2 Flow Rate FiO2 12/27/17 09:24 92 Nasal Cannula 2.00 12/27/17 09:24 98.0 68 17 95/48 (64) 92 12/27/17 06:00 52 12/27/17 05:00 56 12/27/17 04:26 62 18 98/45 (62) 93 12/27/17 04:00 70 12/27/17 03:00 56 12/27/17 02:00 56 12/27/17 01:00 58 12/27/17 00:00 56 12/26/17 23:34 63 18 121/58 (79) 94 12/26/17 23:00 59 12/26/17 22:00 60 12/26/17 21:00 60 12/26/17 20:00 94 Nasal Cannula 2.00 12/26/17 20:00 64 12/26/17 20:00 98.5 62 20 106/51 (69) 94 12/26/17 19:00 56 12/26/17 18:56 95 Nasal Cannula 2.00 12/26/17 18:17 66 12/26/17 17:00 68 12/26/17 16:00 74 12/26/17 15:00 62 12/26/17 15:00 98.0 69 17 129/58 (81) 96 12/26/17 14:00 76 12/26/17 13:00 66 12/26/17 12:00 60 12/26/17 11:21 97.6 70 17 112/70 (84) 95 12/26/17 11:00 74 12/26/17 10:00 64 I/O 12/26/17 12/26/17 12/26/17 12/27/17 12/27/17 12/27/17 07:00 15:00 23:00 07:00 15:00 23:00 Intake Total 240 ml 480 ml 240 ml Output Total 600 ml 300 ml 700 ml Balance -360 ml 180 ml -460 ml Intake Oral 240 ml 480 ml 240 ml Output Urine Total 600 ml 300 ml 700 ml # Bowel Movements 2 1 Result Diagram: 12/26/17 0630 12/26/17 0630 Imaging Last Impressions Chest X-Ray 12/22/17 0720 Signed Impressions: Service Date/Time: Friday, December 22, 2017 07:24 - CONCLUSION: 1. Moderate severity diffuse interstitial opacities and mild bibasilar atelectasis. 2. Small apical pneumothorax probable on the right and possible on the left. Doroteo Rico MD CT Angiography 12/22/17 0000 Signed Impressions: Service Date/Time: Friday, December 22, 2017 09:17 - CONCLUSION: 1. No evidence for pulmonary embolism. 2. Bibasilar consolidation with interlobular septal thickening and small pleural effusions likely CHF Froy Perez MD Objective Remarks GENERAL: This is a well-nourished, well-developed patient, in no apparent distress. CARDIOVASCULAR: Regular rate and rhythm without gallops or rubs but a loud systolic murmur RESPIRATORY: Clear to auscultation. Breath sounds equal bilaterally. No wheezes , rales, or rhonchi. GASTROINTESTINAL: Abdomen soft, non-tender, nondistended. Normal active bowel sounds MUSCULOSKELETAL: Extremities without clubbing, cyanosis, or edema. NEURO: Alert & Oriented x4 to person, place, time, situation. Moves all ext x4 Procedures none A/P Problem List: (1) Acute on chronic diastolic congestive heart failure ICD Code: I50.33 - Acute on chronic diastolic (congestive) heart failure (2) Hyperkalemia ICD Code: E87.5 - Hyperkalemia Status: Acute Assessment and Plan (1) Acute on chronic diastolic congestive heart failure ICD Code: I50.33 - Acute on chronic diastolic (congestive) heart failure Plan: Likely due to aortic stenosis, continue evaluation for aortic valve treatment Continue current medications S/p cardiac cath 12/24/17 Plan for TAVR Ativan for anxiety as need DC metoprolol, started on 6.25 mg po bid carvedilol. Started entresto will give at DC , stop benzapril, if not able to have entresto insurance reasons might continue benzapril, to follow up as OP with cardiology Will adjust meds (2) Hyperkalemia ICD Code: E87.5 - Hyperkalemia Status: Acute Plan: Improved Constipation. Hemorrhoids. Add tucks. Stool softeners laxatives as need. Discharge Planning Status post cardiac catheterization by Dr Prado on 12/24/17, clean cath. Plan for TAVR. Discussed with the patient, nurse, Dr Coello covering for Dr Prado Discharge when cleared by cardiology Morenita Good MD Dec 27, 2017 09:58
[2017-12-27] MEDS: CARVEDILOL 6.25 MG TAB PO SCH ×2 (11:15→23:06)
[2017-12-27] MEDS ORDERED: WITCH HAZEL 50%/GLYCERIN 12.5% 40 PAD JAR TOPICAL PRN (13:00)
[2017-12-27] MEDS: SACUBITRIL/VALSARTAN 24 MG-26 MG TAB PO SCH (21:00)
[2017-12-27] MEDS: ATORVASTATIN 40 MG TAB PO SCH (23:05)
[2017-12-28] VITALS (26 sets, daily range): BP systolic 96–125; BP diastolic 46–62; PULSE 53–76; RESP 16–18; TEMP 98.1–98.7; O2SAT 91–96
[2017-12-28] MEDS: APIXABAN 2.5 MG TABLET PO SCH ×2 (08:57→22:06)
[2017-12-28] MEDS: DOCUSATE SODIUM 50 MG/SENNA 8.6 MG TAB PO SCH ×2 (08:57→22:06)
[2017-12-28] MEDS: FUROSEMIDE 40 MG TAB PO SCH (08:57)
[2017-12-28] MEDS: CARVEDILOL 6.25 MG TAB PO SCH ×2 (08:57→22:06)
[2017-12-28] MEDS: ASPIRIN EC 81 MG TABEC PO SCH (08:58)
[2017-12-28] MEDS: SACUBITRIL/VALSARTAN 24 MG-26 MG TAB PO SCH ×2 (08:58→22:06)
[2017-12-28] MEDS: SODIUM CHLORIDE 0.9% FLUSH 10 ML FLUSH IV FLUSH SCH ×2 (09:00→22:07)
--- NOTE | 2017-12-28 09:30 | MB ---
cc: CONNIE LEON MD, SOHIT K. MD WANG, DO HORENSTEIN,JONES Raza MD DATE OF CONSULTATION: 12/25/2017 REASON FOR CONSULTATION: Second opinion regarding aortic valve pathology. REFERRING PHYSICIAN: Dr. Leon. HISTORY OF PRESENT ILLNESS: Ms. Parker is a very pleasant and frail 87-year-old female with a known history of repeat congestive heart failure who was recently admitted on the 07 of December for a congestive heart failure exacerbation and who now presents with recurrent symptoms of shortness of breath. Again she was admitted for diuresis and underwent a coronary angiogram this time which failed to reveal any significant epicardial coronary artery disease. She carries a known diagnosis of aortic stenosis with an estimated valve area of 0.72 on her last evaluation with peak aortic gradient of 42. Based on these parameters and her repeated presenting complaints, she was seen by Dr. Live and has undergone further workup including surgical opinion for TAVR evaluation. It was his opinion that she would benefit from TAVR therapy. I am now being consulted for a second opinion. At the present time, she is comfortable on supplemental oxygen therapy lying on the bed; however, with minimal exertion gets very short of breath. She denies any progressive chest discomfort or syncopal episodes. PAST MEDICAL HISTORY: Her past medical history is significant for: 1. Congestive heart failure. 2. Stroke. 3. Atrial fibrillation. 4. COPD. 5. Hypertension. 6. Hyperlipidemia. 7. Diabetes mellitus. PAST SURGICAL HISTORY: Her past surgical history is remarkable for: 1. Bladder surgery. 2. Hysterectomy. 3. Appendectomy. ALLERGIES: THE PATIENT REPORT ALLERGY TO CODEINE. CURRENT MEDICATIONS: 1. Atorvastatin. 2. Lasix. 3. Eliquis. 4. Combivent inhaler. 5. Metoprolol. 6. Benazepril. 7. Aspirin. 8. Potassium. 9. Vitamins. 10. Krill oil. 11. Lasix. FAMILY HISTORY: Family history is significant for premature coronary artery disease with the mother dying of heart disease. SOCIAL HISTORY: She has a prior history of smoking one pack per day for 70 years which she is down to about two to three cigarettes a day. Denies any extensive alcohol use or illicit drug use. REVIEW OF SYSTEMS: The review of systems is as above. All other parameters are negative. PHYSICAL EXAMINATION: HEIGHT: She is 172 cm tall. WEIGHT: She weighs 87 kilos. VITAL SIGNS: Blood pressure is 94/46 with a heart rate of 68 which is irregular. Respiratory rate is 18 and she is afebrile. HEAD, EYES, EARS, NOSE, THROAT: Normocephalic and atraumatic. Pupils round and reactive. Extraocular muscles intact. NECK: No cervical lymphadenopathy, carotid bruits or jugular venous distention. CARDIOVASCULAR: Irregularly irregular with normal S1 and S2 with gallops or rubs. There is a 4/6 systolic murmur best appreciated in the right parasternal border in the second intercostal space. LUNGS: Some basilar crackles. Otherwise Clear to auscultation bilaterally. ABDOMEN: The abdomen is soft, nontender and nondistended. Normoactive bowel sounds. No hepatosplenomegaly. EXTREMITIES: Bilateral lower extremity pulses are intact without cyanosis or clubbing. There is a 1 to 2+ pitting edema in both ankles. NEUROLOGIC: Neurologically intact with no focal deficits. IMPRESSION: 1. Severe aortic stenosis. 2. Congestive heart failure. 3. Stroke. 4. Atrial fibrillation. 5. COPD. 6. Hypertension. 7. Hyperlipidemia. PLAN: The clinical, echo as well as angiogram findings were discussed in detail with Ms. Parker today. I agree with Dr. Live' evaluation that the patient will best be served with a transcatheter aortic valve replacement (TAVR). Given her significant medical comorbidities, advanced age as well as her extreme frailty, she will likely do very poorly with surgical aortic valve therapy and is best served with a TAVR. Agreed to proceed with TAVR as directed by the team. Thank you for allowing me to participate in the care of this patient. Shalini ROJAS /3:51 PM /9:24 AM
[2017-12-28 09:45] LABS: BICARBONATE 26.8 MEQ/L (21.0-32.0); CALCIUM 9.3 MG/DL (8.5-10.1); CREATININE 1.77 MG/DL (0.50-1.00)
--- NOTE | 2017-12-28 09:59 | PD.CARD.PN ---
Subjective Subjective Remarks Pt feels well, no complaints. Objective Medications Current Medications Medications (Trade) Dose Ordered Sig/Xiang Route Start Time Stop Time Status Last Admin (NS Flush) 2 ml UNSCH PRN IV FLUSH 12/22/17 12:30 (NS Flush) 2 ml BID IV FLUSH 12/22/17 21:00 12/28/17 09:00 (Duoneb Neb) 1 ampule Q2HR NEB PRN NEB 12/22/17 14:15 12/25/17 05:41 (Ecotrin Ec) 81 mg DAILY PO 12/22/17 14:15 12/28/17 08:58 (Lipitor) 40 mg HS PO 12/22/17 21:00 12/27/17 23:05 (Ativan) 0.5 mg Q8H PRN PO 12/24/17 10:00 12/26/17 23:19 (Atropine Inj) 0.5 mg UNSCH PRN IV PUSH 12/24/17 13:15 (Zofran Inj) 4 mg Q4H PRN IV PUSH 12/24/17 13:15 (Eliquis) 2.5 mg BID PO 12/25/17 21:00 12/28/17 08:57 (Lasix) 40 mg DAILY PO 12/26/17 09:00 12/28/17 08:57 (Narcan Inj) 0.4 mg UNSCH PRN IV PUSH 12/26/17 10:30 (June-Colace) 1 tab BID PO 12/26/17 10:30 12/28/17 08:57 (Milk Of Magnesia Liq) 30 ml Q12H PRN PO 12/26/17 10:30 (Senokot) 17.2 mg Q12H PRN PO 12/26/17 10:30 (Dulcolax Supp) 10 mg DAILY PRN RECTAL 12/26/17 10:30 12/26/17 11:43 (Lactulose Liq) 30 ml DAILY PRN PO 12/26/17 10:30 (Coreg) 6.25 mg Q12HR PO 12/26/17 21:00 12/28/17 08:57 (Entresto 24-26 Mg) 1 tab BID PO 12/27/17 21:00 12/28/17 08:58 (Tucks Pads) 1 applic UNSCH PRN TOPICAL 12/27/17 13:00 12/27/17 16:15 Vital Signs / I&O Vital Signs Date Time Temp Pulse Resp B/P (MAP) Pulse Ox O2 Delivery O2 Flow Rate FiO2 12/28/17 09:51 95 Nasal Cannula 2.00 12/28/17 09:00 71 12/28/17 08:45 98.2 72 18 114/57 (76) 91 12/28/17 08:45 Room Air 12/28/17 08:00 62 12/28/17 07:00 64 12/28/17 06:00 58 12/28/17 05:00 56 12/28/17 04:00 62 12/28/17 03:36 64 16 96/51 (66) 93 12/28/17 03:00 53 12/28/17 02:00 58 12/28/17 01:00 58 12/28/17 00:00 64 12/27/17 23:26 71 16 106/45 (65) 93 12/27/17 23:00 68 12/27/17 22:00 64 12/27/17 21:00 62 12/27/17 20:48 Nasal Cannula 2.00 12/27/17 20:13 95 Nasal Cannula 1.00 12/27/17 20:00 64 12/27/17 19:35 98.2 68 18 93/44 (60) 95 12/27/17 19:00 71 12/27/17 18:00 90 12/27/17 17:00 74 12/27/17 16:00 70 12/27/17 15:56 98.3 71 18 101/48 (65) 95 12/27/17 15:00 83 12/27/17 14:00 64 12/27/17 13:00 58 12/27/17 12:00 62 12/27/17 11:10 98.2 67 18 95/44 (61) 92 12/27/17 11:00 62 12/27/17 10:52 Nasal Cannula 2.00 12/27/17 10:00 70 I/O 12/27/17 12/27/17 12/27/17 12/28/17 12/28/17 12/28/17 07:00 15:00 23:00 07:00 15:00 23:00 Intake Total 240 ml 560 ml 240 ml Output Total 700 ml 800 ml 500 ml Balance -460 ml -240 ml -260 ml Intake Oral 240 ml 560 ml 240 ml Output Urine Total 700 ml 800 ml 500 ml # Bowel Movements 1 2 1 Physical Exam GENERAL: This is a well-nourished, well-developed patient, in no apparent distress. CARDIOVASCULAR: Regular rate and rhythm 3/6 HERMAN RESPIRATORY: Clear to auscultation. Breath sounds equal bilaterally. No wheezes , rales, or rhonchi. GASTROINTESTINAL: Abdomen soft, non-tender, nondistended. Normal active bowel sounds MUSCULOSKELETAL: Extremities without clubbing, cyanosis, or edema. NEURO: Alert & Oriented x4 to person, place, time, situation. Moves all ext x4 Laboratory Laboratory Tests Test 12/28/17 08:05 Blood Urea Nitrogen 55 MG/DL Creatinine 1.77 MG/DL Random Glucose 109 MG/DL Calcium Level 9.3 MG/DL Sodium Level 136 MEQ/L Potassium Level 4.1 MEQ/L Chloride Level 101 MEQ/L Carbon Dioxide Level 26.8 MEQ/L Anion Gap 8 MEQ/L Estimat Glomerular Filtration Rate 27 ML/MIN Imaging Last Impressions Chest X-Ray 12/22/17 0720 Signed Impressions: Service Date/Time: Friday, December 22, 2017 07:24 - CONCLUSION: 1. Moderate severity diffuse interstitial opacities and mild bibasilar atelectasis. 2. Small apical pneumothorax probable on the right and possible on the left. Doroteo Rico MD CT Angiography 12/22/17 0000 Signed Impressions: Service Date/Time: Friday, December 22, 2017 09:17 - CONCLUSION: 1. No evidence for pulmonary embolism. 2. Bibasilar consolidation with interlobular septal thickening and small pleural effusions likely CHF Froy Perez MD Assessment and Plan Problem List: (1) Severe aortic stenosis ICD Codes: I35.0 - Nonrheumatic aortic (valve) stenosis Plan: TAVR w/u ongoing (2) Acute on chronic diastolic congestive heart failure ICD Codes: I50.33 - Acute on chronic diastolic (congestive) heart failure (3) CHF exacerbation ICD Codes: I50.9 - Heart failure, unspecified Plan: currently compensated. (4) Pleural effusion ICD Codes: J90 - Pleural effusion, not elsewhere classified Status: Acute (5) DM (diabetes mellitus) ICD Codes: E11.9 - Type 2 diabetes mellitus without complications (6) Tobacco abuse ICD Codes: Z72.0 - Tobacco use Assessment and Plan Staying to complete TAVR w/u; ok to d/c from a general cardiology standpoint once TAVR team is done w/ their workup. Mick Coello MD Dec 28, 2017 09:59
[2017-12-28] MEDS ORDERED: SODIUM CHLOR 0.9% 1000 ML INJ 1,000 ML IV ONE (11:00)
--- NOTE | 2017-12-28 11:05 | HHI.PR ---
Subjective Remarks In bed appears in not acute distress at this time. Says she is short of breath as at times however is improved significantly. No chest pain or lightheadedness chest pain. No lower extremity edema at this time. Plan for CTA today, creatinine is 1.7, plan to keep patient overnight after 58 for gentle hydration. Objective Vitals Vital Signs Date Time Temp Pulse Resp B/P (MAP) Pulse Ox O2 Delivery O2 Flow Rate FiO2 12/28/17 09:51 95 Nasal Cannula 2.00 12/28/17 09:00 71 12/28/17 08:45 98.2 72 18 114/57 (76) 91 12/28/17 08:45 Room Air 12/28/17 08:00 62 12/28/17 07:00 64 12/28/17 06:00 58 12/28/17 05:00 56 12/28/17 04:00 62 12/28/17 03:36 64 16 96/51 (66) 93 12/28/17 03:00 53 12/28/17 02:00 58 12/28/17 01:00 58 12/28/17 00:00 64 12/27/17 23:26 71 16 106/45 (65) 93 12/27/17 23:00 68 12/27/17 22:00 64 12/27/17 21:00 62 12/27/17 20:48 Nasal Cannula 2.00 12/27/17 20:13 95 Nasal Cannula 1.00 12/27/17 20:00 64 12/27/17 19:35 98.2 68 18 93/44 (60) 95 12/27/17 19:00 71 12/27/17 18:00 90 12/27/17 17:00 74 12/27/17 16:00 70 12/27/17 15:56 98.3 71 18 101/48 (65) 95 12/27/17 15:00 83 12/27/17 14:00 64 12/27/17 13:00 58 12/27/17 12:00 62 12/27/17 11:10 98.2 67 18 95/44 (61) 92 I/O 12/27/17 12/27/17 12/27/17 12/28/17 12/28/17 12/28/17 07:00 15:00 23:00 07:00 15:00 23:00 Intake Total 240 ml 560 ml 240 ml Output Total 700 ml 800 ml 500 ml Balance -460 ml -240 ml -260 ml Intake Oral 240 ml 560 ml 240 ml Output Urine Total 700 ml 800 ml 500 ml # Bowel Movements 1 2 1 Result Diagram: 12/26/17 0630 12/28/17 0805 Objective Remarks GENERAL: This is a well-nourished, well-developed patient, in no apparent distress. CARDIOVASCULAR: Regular rate and rhythm without gallops or rubs but a loud systolic murmur RESPIRATORY: Clear to auscultation. Breath sounds equal bilaterally. No wheezes , rales, or rhonchi. GASTROINTESTINAL: Abdomen soft, non-tender, nondistended. Normal active bowel sounds MUSCULOSKELETAL: Extremities without clubbing, cyanosis, or edema. NEURO: Alert & Oriented x4 to person, place, time, situation. Moves all ext x4 Procedures none A/P Problem List: (1) Acute on chronic diastolic congestive heart failure ICD Code: I50.33 - Acute on chronic diastolic (congestive) heart failure (2) Hyperkalemia ICD Code: E87.5 - Hyperkalemia Status: Acute Assessment and Plan (1) Acute on chronic diastolic congestive heart failure ICD Code: I50.33 - Acute on chronic diastolic (congestive) heart failure Plan: Likely due to aortic stenosis, continue evaluation for aortic valve treatment Continue current medications S/p cardiac cath 12/24/17 Plan for TAVR as OP Ativan for anxiety as need DC metoprolol, started on 6.25 mg po bid carvedilol. Started entresto will give at DC , stop benzapril, if not able to have entresto insurance reasons might continue benzapril, to follow up as OP with cardiology Will adjust meds Plan for CTA 12/28/17 , creatinine is 1.7, plan to keep patient overnight after CTA for gentle hydration. Discussed with Dr Prado cardiology (2) Hyperkalemia ICD Code: E87.5 - Hyperkalemia Status: Acute Plan: Improved Constipation. Hemorrhoids. Add tucks. Stool softeners laxatives as need. Discharge Planning Status post cardiac catheterization by Dr Prado on 12/24/17, clean cath. Plan for TAVR as OP Plan for CtA 12/28/ Discussed with the patient, nurse, Dr Johan Discharge when cleared by cardiology. Discharge tomorrow monitor overnight. Recheck kidney function tomorrow my start gentle hydration however patient at risk of fluid overload and worsening CHF. Discussed with cardiology. Morenita Good MD Dec 28, 2017 11:05
[2017-12-28] MEDS: LORazepam 0.5 MG TAB PO PRN (18:05)
[2017-12-28] MEDS: ATORVASTATIN 40 MG TAB PO SCH (22:06)
[2017-12-29] VITALS (27 sets, daily range): BP systolic 95–123; BP diastolic 45–62; PULSE 58–82; RESP 16–18; TEMP 97.8–98.7; O2SAT 92–98
[2017-12-29 06:33] LABS: HEMATOCRIT 37.7 % (35.0-46.0); HEMOGLOBIN 12.6 GM/DL (11.6-15.3); MEAN CELL VOLUME 74.6 FL (80.0-100.0); MEAN CORPUSCULAR HEMOGLOBIN 24.9 PG (27.0-34.0); MEAN CORPUSCULAR HGB CONC 33.4 % (32.0-36.0); MEAN PLATELET VOLUME 9.4 FL (7.0-11.0); PLATELET COUNT 108 TH/MM3 (150-450); RED BLOOD COUNT 5.05 MIL/MM3 (4.00-5.30); RED CELL DISTRIBUTION WIDTH 19.4 % (11.6-17.2)
[2017-12-29 07:24] LABS: BICARBONATE 27.2 MEQ/L (21.0-32.0); CALCIUM 9.3 MG/DL (8.5-10.1); CREATININE 1.29 MG/DL (0.50-1.00)
[2017-12-29 07:35] LABS: BANDS 7 % (0-6); BASOPHILS 2 % (0-2); LYMPHOCYTES 27 % (9-44); MONOCYTES 3 % (0-8); NEUTROPHIL # MANUAL DIFF 2.9 TH/MM3 (1.8-7.7); POLYS (SEG NEUTROPHILS) 51 % (16-70)
[2017-12-29 07:36] LABS: KERATOCYTES 1+ (NORMAL)
[2017-12-29 07:37] LABS: OVALOCYTES 3+ (NORMAL)
--- NOTE | 2017-12-29 09:27 | MA ---
cc: FRANCISCO JAVIER GALLAGHER DO DATE OF PROCEDURE December 24, 2017 PROCEDURE Coronary angiogram, right heart catheterization. PREPROCEDURE DIAGNOSES Severe aortic stenosis for TAVR. Recurrent congestive heart failure. POSTPROCEDURE DIAGNOSES Severe aortic stenosis by echocardiogram. Congestive heart failure secondary to aortic stenosis. Mild to moderate coronary artery disease. MEDICATIONS Fentanyl 50 mcg. CONTRAST USED 30 cc. FLUOROSCOPY 3.1 minutes MODERATE SEDATION 0 minutes. ESTIMATED BLOOD LOSS 10 cc PROCEDURAL SUMMARY Aurea Parker is a pleasant 87-year-old female who sees my partner Dr. Coello in the office and presented with recurrent congestive heart failure. She was previously in the hospital in November with a similar type episode and was found to have congestive heart failure as well as severe aortic stenosis by echocardiogram. She has since been transferred to [facility] for right and left heart catheterization in anticipation of TAVR. The risks, benefits and alternatives were explained to her and she consented as such. She was brought to the lab and prepped in the usual sterile fashion. The right femoral artery was accessed using a modified Seldinger technique and placement of a 5-Icelandic sheath. The right femoral vein was accessed using a modified Seldinger technique and placement of a 7-Icelandic sheath. Both of these were easily aspirated and flushed. A [place]-Mary catheter was advanced up the venous system to a wedge position. Oxygenation saturations as well as pressures were measured on a standard pullback method. The [place]-Mary catheter was removed. The JR-4 was advanced up the femoral artery to the ascending aorta and used for selective angiography of the right coronary artery system. Because of the known aortic stenosis by echocardiogram it was not felt prudent to cross the aortic valve. JR-4 was exchanged out for a JL-4 which was used for selective angiography of the left coronary artery system. The JL-4 was removed over a J-wire. The sheaths were sutured in place with a plan to remove once in blood bank laboratory professional holding. The patient left the blood bank laboratory professional cardiovascularly stable. FINDINGS LEFT MAIN: Normal-sized vessel with 30% ostial stenosis. It bifurcates into an LAD and circumflex. LAD: A normal-sized vessel with a 30% tubular lesion in the midportion and no significant disease distally. It supplies multiple small diagonals with no significant disease. LEFT CIRCUMFLEX: Normal-sized vessel with no significant disease. It supplies two major obtuse marginals with mild tortuosity but no significant disease. RIGHT CORONARY ARTERY: Normal-sized vessel which is dominant in nature. It has no significant disease. HEMODYNAMIC RESULTS RA 5. RV 29/4. RVEDP 7. PA 27/12, mean PA 18. Wedge 12. Cardiac output 5.3. Cardiac index 2.8. IMPRESSIONS 1. Severe aortic stenosis by echocardiogram. 2. Recurrent congestive heart failure secondary to aortic stenosis. 3. Mild to moderate coronary artery disease as above. RECOMMENDATIONS 1. Ms. Parker appears to have severe aortic stenosis by echocardiogram and mild to moderate coronary artery disease as above. 2. Because of this, she will be recommended evaluation by the structural heart team for consideration of TAVR. 3. Further recommendations will be made based on the hospital course. Thank you for allowing me to see Aurea Parker. If there are any questions, please do not hesitate to call. Francisco Javier Gallagher DO ROSE MARIE/SSB /10:52 PM /9:16 AM
[2017-12-29] MEDS: SACUBITRIL/VALSARTAN 24 MG-26 MG TAB PO SCH ×2 (09:49→22:30)
[2017-12-29] MEDS: CARVEDILOL 6.25 MG TAB PO SCH ×2 (09:49→22:30)
[2017-12-29] MEDS: DOCUSATE SODIUM 50 MG/SENNA 8.6 MG TAB PO SCH ×2 (09:49→22:30)
[2017-12-29] MEDS: SODIUM CHLORIDE 0.9% FLUSH 10 ML FLUSH IV FLUSH SCH ×2 (09:51→22:30)
[2017-12-29] MEDS: APIXABAN 2.5 MG TABLET PO SCH ×2 (10:09→22:30)
[2017-12-29] MEDS: ASPIRIN EC 81 MG TABEC PO SCH (10:09)
--- NOTE | 2017-12-29 10:28 | RSPPFT ---
DATE OF PROCEDURE: 12/25/17 COMMENTS: VOLUMES DYNAMIC: FVC and FEV1 mildly reduced. FLOWS: FEV1% mildly reduced; FEF 25-75 low normal. IMPRESSION: Probable mild obstructive ventilatory defect.
[2017-12-29] MEDS: LORazepam 0.5 MG TAB PO PRN (12:09)
[2017-12-29] MEDS ORDERED: IOHEXOL 350 MG/ML 10 ML VIAL (for RAD DIAG) IVCONTRAST ONE (13:12)
--- NOTE | 2017-12-29 14:26 | HHI.PR ---
Subjective Remarks Patient in bed , CTA was not performed yesterday as not able to administer contrast. Kidney function today is improving. Lasix is on hold./ Received some IVF hydration SOB at baseline not worsened. Feels tired. No n/v/d/c./ Objective Vitals Vital Signs Date Time Temp Pulse Resp B/P (MAP) Pulse Ox O2 Delivery O2 Flow Rate FiO2 12/29/17 10:33 82 12/29/17 10:22 97.8 61 18 123/62 (82) 92 12/29/17 09:30 Nasal Cannula 2.00 12/29/17 08:48 94 21 12/29/17 06:00 60 12/29/17 05:00 65 12/29/17 04:57 Nasal Cannula 2.00 12/29/17 04:00 62 12/29/17 03:00 63 12/29/17 03:00 98.6 67 16 102/50 (67) 94 12/29/17 02:00 65 12/29/17 01:00 66 12/29/17 00:00 61 12/28/17 23:00 64 12/28/17 23:00 98.5 62 16 112/56 (74) 96 12/28/17 22:00 62 12/28/17 21:30 98.7 65 18 125/62 (83) 94 12/28/17 21:30 65 12/28/17 21:30 66 12/28/17 19:00 96 Nasal Cannula 2.00 12/28/17 18:00 76 12/28/17 17:00 75 12/28/17 16:00 98.2 72 18 120/55 (76) 94 12/28/17 16:00 72 12/28/17 15:00 72 I/O 12/28/17 12/28/17 12/28/17 12/29/17 12/29/17 12/29/17 07:00 15:00 23:00 07:00 15:00 23:00 Intake Total 240 ml 720 ml 720 ml Output Total 500 ml 1000 ml 1150 ml Balance -260 ml -280 ml -430 ml Intake Oral 240 ml 720 ml 720 ml Output Urine Total 500 ml 1000 ml 1150 ml # Bowel Movements 1 Result Diagram: 12/29/17 0529 12/29/17 05 Imaging Last Impressions Chest X-Ray 12/22/17 0720 Signed Impressions: Service Date/Time: Friday, December 22, 2017 07:24 - CONCLUSION: 1. Moderate severity diffuse interstitial opacities and mild bibasilar atelectasis. 2. Small apical pneumothorax probable on the right and possible on the left. Doroteo Rico MD CT Angiography 12/22/17 0000 Signed Impressions: Service Date/Time: Friday, December 22, 2017 09:17 - CONCLUSION: 1. No evidence for pulmonary embolism. 2. Bibasilar consolidation with interlobular septal thickening and small pleural effusions likely CHF Froy Perez MD Objective Remarks GENERAL: This is a well-nourished, well-developed patient, in no apparent distress. CARDIOVASCULAR: Regular rate and rhythm without gallops or rubs but a loud systolic murmur RESPIRATORY: Clear to auscultation. Breath sounds equal bilaterally. No wheezes , rales, or rhonchi. GASTROINTESTINAL: Abdomen soft, non-tender, nondistended. Normal active bowel sounds MUSCULOSKELETAL: Extremities without clubbing, cyanosis, or edema. NEURO: Alert & Oriented x4 to person, place, time, situation. Moves all ext x4 Procedures none A/P Problem List: (1) Acute on chronic diastolic congestive heart failure ICD Code: I50.33 - Acute on chronic diastolic (congestive) heart failure (2) Hyperkalemia ICD Code: E87.5 - Hyperkalemia Status: Acute Assessment and Plan (1) Acute on chronic diastolic congestive heart failure ICD Code: I50.33 - Acute on chronic diastolic (congestive) heart failure Plan: Likely due to aortic stenosis, continue evaluation for aortic valve treatment Continue current medications S/p cardiac cath 12/24/17 Plan for TAVR as OP Ativan for anxiety as need DC metoprolol, started on 6.25 mg po bid carvedilol. Started entresto will give at DC , stop benzapril, if not able to have entresto insurance reasons might continue benzapril, to follow up as OP with cardiology Will adjust meds Plan for CTA 12/29/17, as contrast was not able to be administer yesterday creatinine is improved some, plan to keep patient overnight after CTA for gentle hydration per cardio. Monitor kidney function. POss DC tomorrow (2) Hyperkalemia ICD Code: E87.5 - Hyperkalemia Status: Acute Plan: Improved Constipation. Hemorrhoids. Add tucks. Stool softeners laxatives as need. Discharge Planning Status post cardiac catheterization by Dr Prado on 12/24/17, clean cath. Plan for TAVR as OP Plan for CtA 12/28/ Discussed with the patient, nurse, Dr Prado Discharge when cleared by cardiology. Discharge likely tomorrow monitor overnight. Recheck kidney function tomorrow may start gentle hydration however patient at risk of fluid overload and worsening CHF. Monitor closely . Lasix is on hold at this time. resume lasix at [place] Morenita Good MD Dec 29, 2017 14:26
--- NOTE | 2017-12-29 18:48 | RADRPT ---
EXAM DATE/TIME: 12/29/2017 12:34 [facility] COMPARISON: No previous studies available for comparison. INDICATIONS : Pre operative trans aortic valve replacement. IV CONTRAST: 100 cc Omnipaque 350 (iohexol) IV RADIATION DOSE: 29.93 CTDIvol (mGy) MEDICAL HISTORY : Stroke. Hypertension. Chronic obstructive pulmonary disease. SURGICAL HISTORY : Hysterectomy. Cholecystectomy. ENCOUNTER: Initial ACUITY: 1 day PAIN SCALE: 0/10 LOCATION: Bilateral chest TECHNIQUE: Volumetric scanning was performed using a multi-row detector CT scanner. The data was post processed with a variety of visualization algorithms including full volume maximum intensity projection, multi -planar sliding thin slab reformation, curved planar reformation, and surface rendering techniques. Using automated exposure control and adjustment of the mA and/or kV according to patient size, radiat ion dose was kept as low as reasonably achievable to obtain optimal diagnostic quality images. DIC OM format image data is available electronically for review and comparison. FINDINGS: CARDIAC: The coronary system is right dominant. Calcific atherosclerotic disease involving the left main coron nehemias artery and eccentric calcific plaques involving the LAD and circumflex vessels as well as branch vessels. AORTIC ROOT/VALVE: 3 cusps are evident with moderate calcifications. The aortic root measures 32 mm. The mid ascending thoracic aorta measures 35 mm. Mid thoracic aorta measures 26 with occasional intimal calcifications. THORACIC AORTA: Origin of the great vessels is normal. No evidence of aneurysm, mural thrombus, dissection, mural ca lcification, or stenosis. 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 SMA: Superior mesenteric artery is widely patent. RIGHT RENAL ARTERY: Right renal artery is widely patent. LEFT RENAL ARTERY: Left renal artery is widely patent. RIGHT COMMON ILIAC: Moderate concentric stenosis at the origin of the right common iliac artery and mild dilatation of th e mid right common iliac artery to a diameter of 18 mm. LEFT COMMON ILIAC: No evidence of aneurysm, mural thrombus, dissection, mural calcification, or stenosis. The common femoral measures 7-8 mm bilaterally. THORAX: There is consolidative change, potentially atelectasis in the medial posterior left lung base. Mild s carring or atelectasis in the posterior right base. Mild basilar bronchiectasis. Goitrous thyroid. ABDOMEN: Solid organs are focally unremarkable. No evidence of adenopathy or mass. PELVIS: Prominent diverticular involvement of the distal colon. Small bladder base diverticula on the right. 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 Coronary atherosclerotic disease. Consolidative change in the posterior medial left lung base. See above for additional discussion. Doroteo Rasheed MD on December 29, 2017 at 18:33 Board Certified Radiologist. This report was verified electronically.
[2017-12-29] MEDS: ATORVASTATIN 40 MG TAB PO SCH (22:31)
[2017-12-30] VITALS (10 sets, daily range): BP systolic 133–141; BP diastolic 60–77; PULSE 63–83; RESP 18; TEMP 98.8; O2SAT 94
[2017-12-30] MEDS: CARVEDILOL 6.25 MG TAB PO SCH (09:47)
[2017-12-30] MEDS: APIXABAN 2.5 MG TABLET PO SCH (09:48)
[2017-12-30] MEDS: SACUBITRIL/VALSARTAN 24 MG-26 MG TAB PO SCH (09:48)
[2017-12-30] MEDS: DOCUSATE SODIUM 50 MG/SENNA 8.6 MG TAB PO SCH (09:49)
[2017-12-30] MEDS: ASPIRIN EC 81 MG TABEC PO SCH (09:49)
[2017-12-30] MEDS: SODIUM CHLORIDE 0.9% FLUSH 10 ML FLUSH IV FLUSH SCH (09:49)
--- NOTE | 2017-12-30 15:46 | HHI.DS ---
Discharge Summary Admission Date Dec 23, 2017 at 09:52 Discharge Date: Dec 30, 2017 Admitting Diagnosis CHF exacerbation. Pulmonary edema, Pleural Effusions. (1) Acute on chronic diastolic congestive heart failure ICD Code: I50.33 - Acute on chronic diastolic (congestive) heart failure Diagnosis: Principal (2) Hyperkalemia ICD Code: E87.5 - Hyperkalemia Diagnosis: Principal Status: Acute Procedures none Brief History - From Admission Written by Jorge Barreto, acting as scribe for Dr. Davalos on 12/22/17 at 13: 25. This is a rather pleasant 87-year-old female with known history of hypertension, hyperlipidemia, congestive heart failure, atrial fibrillation, history CVA, tobacco use, chronic obstructive pulmonary disease who came to emergency department because of shortness of breath and dyspnea. Patient was just recently admitted the hospital on December 07, 2017 for similar symptoms. Patient states that she was discharged home with home health care, follow-up with cardiology, she was given a weight scale that reports to her primary medical doctor's office on a daily basis and she indicates that she has gained approximately 1 pound daily. She does drink at least 4 bottles of water daily, 2 big glasses of sweet tea and a cup of coffee on a daily basis. Patient does not indicate that she is to be on a fluid restriction. Patient felt that she needed to drink more fluid to flush her system. She indicates that her heart doctor did discontinue her water pill recently. She does have a follow-up with Dr. Coello tomorrow. However patient was doing quite well until she got up to lay on the couch to sleep last night when she laid down she could not breathe. She had to sit up. She could not sleep throughout the rest of my tissue short of breath. She called her niece, who came over this morning and because she was still short of breath brought her to the emergency department for evaluation. Patient had workup performed which did indicate acute congestive heart failure, hyperkalemia. Patient does indicate that she had orthopnea, does not indicate any dyspnea on exertion. She indicates that she has had increased lower extremity edema since yesterday. States that she is significantly weak where she cannot ambulate at all, she can only move with the use of her walker. States that she is rather non-mobile every day. Just sits in her [place] room. Patient was recommended observation for further evaluation and management. CBC/BMP: 12/29/17 0529 12/29/17 0529 Significant Findings Laboratory Tests Test 12/28/17 08:05 12/29/17 05:29 Blood Urea Nitrogen 55 MG/DL (7-18) 44 MG/DL (7-18) Creatinine 1.77 MG/DL (0.50-1.00) 1.29 MG/DL (0.50-1.00) Random Glucose 109 MG/DL (74-106) 124 MG/DL (74-106) Estimat Glomerular Filtration Rate 27 ML/MIN (>89) 39 ML/MIN (>89) Mean Corpuscular Volume 74.6 FL (80.0-100.0) Mean Corpuscular Hemoglobin 24.9 PG (27.0-34.0) Red Cell Distribution Width 19.4 % (11.6-17.2) Platelet Count 108 TH/MM3 (150-450) Band Neutrophils % 7 % (0-6) Eosinophils % 10 % (0-4) Platelet Estimate LOW (NORMAL) Ovalocytes 3+ (NORMAL) Keratocytes 1+ (NORMAL) PE at Discharge GENERAL: This is a well-nourished, well-developed patient, in no apparent distress. CARDIOVASCULAR: Regular rate and rhythm without gallops or rubs but a loud systolic murmur RESPIRATORY: Clear to auscultation. Breath sounds equal bilaterally. No wheezes , rales, or rhonchi. GASTROINTESTINAL: Abdomen soft, non-tender, nondistended. Normal active bowel sounds MUSCULOSKELETAL: Extremities without clubbing, cyanosis, or edema. NEURO: Alert & Oriented x4 to person, place, time, situation. Moves all ext x4 Hospital Course Mrs. Parker is an 87-year-old female. She was admitted secondary to CHF exacerbation. The degree of acute kidney injury was present during this admit that improved through time. She has improved through time and is returning to near baseline status. At this point she is medically stable for transition to home with home healthcare. Medically clear for discharge today. Plan for valve surgery in future. Pt Condition on Discharge: Stable Discharge Disposition: Disch w/ Home Health Serv Discharge Time: > 30 minutes Discharge Instructions DIET: Follow Instructions for: Heart Healthy Diet Activities you can perform: Regular-No Restrictions Follow up Referrals: Cardiology - 1 Week PCP Follow-up - 2-3 Days SNF/CORRECTION/HH @ [facility]/ with [facility] New Medications: Furosemide (Lasix) 40 Mg Tab 40 MG PO DAILY for chf, #30 TAB 0 Refills Carvedilol (Coreg) 6.25 Mg Tab 6.25 MG PO Q12HR for Blood Pressure Management, #60 TAB Sacubitril-Valsartan (Entresto) 24-26 Mg Tab 1 TAB PO BID for Blood Pressure Management, #60 TAB Continued Medications: Apixaban (Eliquis) 2.5 Mg Tab 2.5 MG PO BID for Blood Clot Prevention, #120 TAB 0 Refills (This prescription has been renewed) Aspirin DR (Aspirin 81) 81 Mg Tabdr 81 MG PO DAILY, TAB 0 Refills Atorvastatin (Atorvastatin) 40 Mg Tab 40 MG PO HS for Cholesterol Management, #30 TAB 0 Refills B Complex W-C No.20/Folic Acid (Mynephrocaps Softgel) 1 Mg Capsule Cholecalciferol (D3 Super Strength) 2,000 Unit Cap 2000 UNITS PO DAILY for Nutritional Supplement, #30 CAP 0 Refills Ipratropium-Albuterol Inh (Combivent Respimat Inh) 20-100 Fci/Act Aero 1 PUFF INH QID for Asthma Management, #1 INHALER 0 Refills Krill/Om-3/Dha/Epa/Phospho/Ast (Krill Oil 1,000 mg Softgel) 1,000-170MG Capsule Lactobacillus Acidophilus (Lactobacillus Acidophilus) 1 Billion Cell Tab 1 TAB PO TIDAC for Nutritional Supplement, #30 TAB 0 Refills Multiple Vitamins W/ Minerals (Centrum Silver Adult 50+) 0.4 Mg-300 Mcg-250 Mcg Tab Potassium Chloride ER (Potassium Chloride ER) 10 Meq Cap 10 MEQ PO DAILY for Electrolyte Replacement, #30 CAP 0 Refills Discontinued Medications: Benazepril (Benazepril) 10 Mg Tab 10 MG PO DAILY for Blood Pressure Management, #30 TAB 0 Refills Metoprolol Tartrate (Metoprolol Tartrate) 50 Mg Tab 50 MG PO BID, #60 TAB 0 Refills Alfonzo García MD Dec 30, 2017 15:46
== END 2017-12-30 13:49 | disposition home health service (06) | DRG 286 ==
LOC: PHED 07:17 → PHEDA 10:38 → PH3A 11:47 → OBSVTOIN 12-23 09:52 → HCIS 12-23 14:17
PROVIDERS: ADMIT Hospitalist; ATTEND Hospitalist
PROC: 4A023N6 Measurement of Cardiac Sampling and Pressure, Right Heart, Percutaneous Approach (ICD-10-PCS; principal; 2017-12-28)
PROC: B2111ZZ Fluoroscopy of Multiple Coronary Arteries using Low Osmolar Contrast (ICD-10-PCS; 2017-12-28)
DX: I13.0 Hypertensive heart and chronic kidney disease with heart failure and stage 1 through stage 4 chronic kidney disease, or unspecified chronic kidney disease (principal); I50.33 Acute on chronic diastolic (congestive) heart failure; N17.9 Acute kidney failure, unspecified; I95.9 Hypotension, unspecified; E11.22 Type 2 diabetes mellitus with diabetic chronic kidney disease; E87.5 Hyperkalemia; J93.9 Pneumothorax, unspecified; I48.2 Chronic atrial fibrillation; J44.9 Chronic obstructive pulmonary disease, unspecified; I35.0 Nonrheumatic aortic (valve) stenosis; F17.210 Nicotine dependence, cigarettes, uncomplicated; E78.5 Hyperlipidemia, unspecified; N18.3 Chronic kidney disease, stage 3 (moderate); F41.9 Anxiety disorder, unspecified; K59.00 Constipation, unspecified; I25.10 Atherosclerotic heart disease of native coronary artery without angina pectoris; H91.90 Unspecified hearing loss, unspecified ear; K64.9 Unspecified hemorrhoids; Z86.73 Personal history of transient ischemic attack (TIA), and cerebral infarction without residual deficits; Z79.01 Long term (current) use of anticoagulants
CPT/HCPCS: 71045; 71275; 74174; 76937; 80048; 82040; 82550; 82552; 82810; 83735; 83880; 84484; 85007; 85025; 85027; 85610; 85730; 93005; 93460; 94010; 94150; 94640; 94664; 96374; 96376; 99152; C1769; C1893; G0378; G8987-GP; G8988-GP; J1644; J1940; J2250; J3010; J7030; Q9967

== ENCOUNTER 2018-01-06 13:00 | Inpatient (IN) | payer OTHER, MEDICARE ==
[~2018-01-06] VITALS: Ht 172.7 cm; Wt 82.0 kg
[~2018-01-06 13:00] MED LIST changes: -AUGM875T3 PO; -AZIT500T2 PO; -BENA10TA PO; +CARV6.25 PO; +FURO1TAB60 PO; -METO50TA PO; +SACU1TAB PO
[2018-01-13] MEDS ORDERED: ASPIRIN 325 MG TAB PO ONE (08:15)
[2018-01-13] MEDS ORDERED: MUPIROCIN 2% OINT 1 APPLIC/GM SYRINGE EACH NARE PRN (08:15)
[2018-01-13] MEDS ORDERED: CHLORHEXIDINE GLUCONATE 2 % 1 PACK (2 CLOTHS) TOPICAL PRN (08:15)
[2018-01-13] MEDS ORDERED: POVIDONE IODINE 5% (ANTISEPSIS KIT) EACH NARE PRN (08:15)
[2018-01-13] MEDS ORDERED: ceFAZolin 2 GM PREMIX 50 ML IV PRN (08:15)
[2018-01-13 08:20] VITALS: BP 142/74; PULSE 71; RESP 18; TEMP 98.6; O2SAT 96
[2018-01-13 08:48] LABS: AUTOMATED NEUTROPHIL # 1.6 TH/MM3 (1.8-7.7); BASOPHIL # 0.2 TH/MM3 (0-0.2); BASOPHIL % 4.5 % (0.0-2.0); EOSINOPHIL # 0.5 TH/MM3 (0-0.4); EOSINOPHIL % 10.5 % (0.0-4.0); HEMATOCRIT 41.9 % (35.0-46.0); HEMOGLOBIN 13.8 GM/DL (11.6-15.3); LYMPHOCYTE # 1.7 TH/MM3 (1.0-4.8); MEAN CELL VOLUME 75.9 FL (80.0-100.0); MEAN CORPUSCULAR HEMOGLOBIN 25.1 PG (27.0-34.0); MEAN CORPUSCULAR HGB CONC 33.1 % (32.0-36.0); MEAN PLATELET VOLUME 9.1 FL (7.0-11.0); MONO % 14.2 % (0.0-8.0); MONOCYTE # 0.7 TH/MM3 (0-0.9); NEUT % 33.8 % (16.0-70.0); PLATELET COUNT 133 TH/MM3 (150-450); RED BLOOD COUNT 5.52 MIL/MM3 (4.00-5.30); RED CELL DISTRIBUTION WIDTH 20.8 % (11.6-17.2); WHITE BLOOD COUNT 4.6 TH/MM3 (4.0-11.0)
[2018-01-13 08:55] LABS: PROTHROMBIN TIME - PATIENT 10.1 SEC (9.8-11.6)
[2018-01-13 09:11] LABS: BICARBONATE 31.3 MEQ/L (21.0-32.0); CALCIUM 9.5 MG/DL (8.5-10.1); CREATININE 1.29 MG/DL (0.50-1.00)
[2018-01-13] MEDS ORDERED: RESP: ALBUTEROL 2.5 MG/IPRATROPIUM 0.5 MG NEB (SCH) NEB ONE (10:45)
[2018-01-13] MEDS ORDERED: FAMOTIDINE 20 MG/2 ML VIAL IV ONE (10:45)
[2018-01-13] MEDS ORDERED: LORazepam 2 MG/ML VIAL IV PUSH ONE (11:00)
--- NOTE | 2018-01-13 11:43 | MH ---
cc: CONNIE TORRES DATE OF ADMISSION 01/13/2018 ADMITTING DIAGNOSIS Severe aortic stenosis. HISTORY OF PRESENT ILLNESS This is an 87-year-old frail female with a history of congestive heart failure and severe aortic valve stenosis. The patient was seen and evaluated both by Dr. Hughes and Dr. Live for consideration of traditional surgical aortic valve replacement but was felt to be high risk, and therefore transcatheter aortic valve replacement was recommended. The patient has no prior history of significant coronary disease. PAST MEDICAL HISTORY 1. Congestive heart failure. 2. Stroke. 3. Atrial fibrillation. 4. COPD. 5. Hypertension. 6. Dyslipidemia. 7. Diabetes. 8. Severe aortic stenosis. MEDICATIONS 1. Atorvastatin. 2. Lasix. 3. Eliquis. 4. Combivent. 5. Metoprolol. 6. Benazepril. 7. Aspirin. 8. Potassium. 9. Vitamins. 10. Lasix. FAMILY HISTORY Denies any family history of early coronary artery disease or sudden cardiac . SOCIAL HISTORY History of a pack a day for 70 years, now down to 2-3 cigarettes a day. Denies any alcohol or drug use. REVIEW OF SYSTEMS A 12-point review of systems was performed and negative unless otherwise noted in the history of present illness. PHYSICAL EXAMINATION VITAL SIGNS: Temperature 98, blood pressure 00/46 mmHg. GENERAL: Alert and oriented x3, in no acute distress. HEENT: Pupils are reactive to light and accommodation. Extraocular movements are intact. NECK: No jugular venous distention. No thyromegaly. No lymphadenopathy. No carotid bruits. LUNGS: Clear to auscultation bilaterally. CARDIOVASCULAR: Regular rate and rhythm, 3/6 systolic murmur. No rubs or gallops. ABDOMEN: Nontender, nondistended. Good bowel sounds. No hepatosplenomegaly. EXTREMITIES: No clubbing, cyanosis or edema. Good peripheral pulses. NEUROLOGIC: Cranial nerves intact. Motor and sensory grossly intact. PRE TAVR WORK-UP: STS score 8.5%. [place] Heart Association Class III/IV. BMI 25.8. The patient scored 3/4 for frailty. Electrocardiogram shows sinus rhythm. Pulmonary function test shows moderate to severely restricted lung disease with an FEV-1 of 1.28. Echocardiogram performed on 12/07/2017 as a qualifying with jet velocity of 4.17 meters per second, mean gradient 42 mmHg, calculated aortic valve area 0.73 centimeters squared. There is mild to moderate aortic insufficiency and mild tricuspid regurgitation. Ejection fraction 60-65%. Coronary angiogram performed on December 24, 2017 shows mild nonobstructive coronary disease. CT analysis performed on December 29, 2017 shows: Short annulus diameter 20.3 mm. Long annulus diameter 25.2 mm. Annulus area 414 millimeters squared. Sinus of Valsalva diameter 35.6 mm. Sinotubular junction 30.0 mm. Left coronary height 12.9 mm. Right coronary height 20.3 mm. Right groin 5.5 mm. Left groin 6.2 mm. ASSESSMENT Severe aortic stenosis. PLAN The risks, benefits and alternatives were discussed with the patient for planned transcatheter aortic valve replacement, bioprosthetic valve. Planned size 23 mm, S3 Person. MD ROGER Scott/SERGIO /11:05 AM /11:18 AM
[2018-01-13] MEDS ORDERED: NORMOSOL R INJ 1,000 ML IV ONE (12:00)
[2018-01-13] MEDS ORDERED: GLYCOPYRROLATE 1 MG/5 ML SYRINGE IV PUSH ONE (12:00)
[2018-01-13] MEDS ORDERED: ePHEDrine/NS 25 MG/5 ML SYRINGE IV ONE (12:00)
[2018-01-13] MEDS ORDERED: SODIUM CHLORID 0.9% 500 ML INJ 1,000 ML IV ONE (12:00)
[2018-01-13] MEDS ORDERED: PROPOFOL 200 MG/20 ML AMP IV ONE (12:00)
[2018-01-13] MEDS ORDERED: SODIUM CHLOR 0.9% 250 ML INJ 250 ML IV ONE (12:00)
[2018-01-13] MEDS ORDERED: PHENYLEPH/NS 1000 MCG/10 ML SYR IV ONE (12:00)
[2018-01-13] MEDS ORDERED: NEOSTIGMINE 5 MG/5 ML SYRINGE IV PUSH ONE (12:00)
[2018-01-13] MEDS ORDERED: LIDOCAINE HCL 1% PF 5 ML SYRINGE OTHER ONE (12:00)
[2018-01-13] MEDS ORDERED: LACTATED RINGER'S 1000 ML INJ 1,000 ML IV ONE (12:00)
[2018-01-13] MEDS ORDERED: ROCURONIUM INJ 50 MG/5 ML SYRINGE IV PUSH ONE (12:00)
[2018-01-13] MEDS ORDERED: HEPARIN SODIUM - IV 10,000 UNITS/10 ML VIAL ONE (12:28)
[2018-01-13] MEDS ORDERED: PROTAMINE SULFATE 50 MG/5 ML VIAL ONE (12:28)
[2018-01-13] MEDS ORDERED: NOREPINEPHRINE 4 MG/4 ML AMP ONE (12:28)
[2018-01-13] MEDS ORDERED: HEPARIN-NS/PF INJ 2,000 ML ONE (12:56)
[2018-01-13] MEDS ORDERED: IOHEXOL 350 MG/ML 50 ML BTL (for RAD DIAG) OTHER ONE (13:50)
--- NOTE | 2018-01-13 14:42 | PD.PROCEDR ---
Procedure Note Procedure Procedure: Transesophageal Echocardiography Diagnosis: Severe aortic stenosis Indications: Preoperative planning for transcatheter aortic valve replacement Consent: Obtained Anesthesia: General endotracheal anesthesia Description of the Procedure: The patient was sedated and mechanically ventilated. The echo probe was inserted easily and without resistance. At the conclusion of the procedure, the echo probe was removed. Please see detailed echocardiogram report for formal findings. Preliminary Findings (not confirmed): Pre-procedure: 1) normal left ventricular function 2) normal right ventricular size and function 3) severe aortic stenosis 4) [id number] aortic insufficiency 5) no pericardial effusion Post-procedure: 1) s/p successful transcatheter bioprosthetic aortic valve replacement 2) no evidence of bioprosthetic valve stenosis 3) trace perivalvular leak 4) no pericardial effusion The patient tolerated the procedure well with no hemodynamic instability. There were no immediate complications noted. There was minimal EBL. I personally performed the procedure. Wilfredo Irvin MD Jan 13, 2018 14:42
--- NOTE | 2018-01-13 14:55 | PD.OP ---
cc: Mick Coello MD; Shalini Hughes MD; Janet Live MD; Akshat Leon MD Operative Report Date of Surgery: Jan 13, 2018 Preoperative Diagnosis: (1) Severe aortic stenosis (2) Acute on chronic diastolic congestive heart failure Postoperative Diagnosis: same Procedure: Transcatheter aortic valve replacement wit a 23 Miguelina 3 tissue valve Balloon aortic valvuloplasty with a 20 x 4 Person balloon Left and right femoral artery access with Perclose closure on the left Right femoral venous access Aortography Fluoroscopy Anesthesia: Dr. Petty Surgeon: Janet Live Co-surgeon - Dr. Leon Assembler Installer Structures(s): Shalini Hughes MD Operation and Findings: The risks, benefits, complications, treatment options, and expected outcomes were discussed with the patient. The possibilities of reaction to medication, pulmonary aspiration, perforation of viscus, bleeding, recurrent infection, the need for additional procedures, failure to diagnose a condition, and creating a complication requiring transfusion or operation were discussed with the patient. The patient concurred with the proposed plan, giving informed consent. The site of surgery properly noted/marked. The patient was taken to the hybrid operating room, identified as Aurea Parker and the procedure verified as Transcatheter Aortic Valve Replacement. A Time Out was held and the above information confirmed. Standard monitoring lines and Salcido catheter were placed. General anesthesia was induced. The patient was prepped and draped in a sterile fashion. Initially, right femoral arterial and venous access was acquired using a Seldinger percutaneous technique. The details of this procedure were dictated under separate note by cardiology. Once a pigtail was positioned in the aortic annulus and a temporary transvenous pacemaker wire was placed in the right ventricular apex and tested, the left femoral artery was accessed using a needle followed by a guidewire under fluoroscopic guidance. Perclose devices were placed for later closure and the patient was heparinized. Serial dilators were used to dilate the left femoral artery to 14 Frisian caliber. The Person sheath was then inserted up to the distal abdominal aorta. Arch aortography was performed to define the implant view. A balloon aortic valvuloplasty was then performed using a 20 x 4 balloon with the patient being paced at 180 beats per minute. A 23 Person Miguelina 3 transcatheter aortic valve was then positioned in the annulus and deployed with the patient being paced at 180 beats per minute. Following deployment, the valve apparatus was withdrawn and arch aortography and SAUMYA were performed to assess the valve. The valve had no significant perivalvular leaks. The 14F sheath was removed and the Perclose sutures secured. Protamine was administered. Sterile dressings were placed. At the end of the operation, all sponge, instruments, and needle counts were correct. The patient was transferred to the CICU in stable condition. Findings: Heavily calcified trileaflet valve Implants: 23 Miguelina 3 AV Complications: none Disposition: to CVICU in stable condition Janet Live MD Jan 13, 2018 14:55
--- NOTE | 2018-01-13 14:58 | PD.CONS ---
[facility] Service Critical Care Medicine Consult Requested By Dr. 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 she presents for elective TAVR via iliac access. She underwent uncomplicated procedure under general anesthesia. She arrives to the CVICU extubated in stable condition. She is arousing from anesthesia and a complete ROS is unobtainable. the remainder of the history is obtained from the medical record. Review of Systems ROS Limitations: Clinical Condition, Altered Mental Status ROS arousing from anesthesia Past Family Social History Allergies: Coded Allergies: codeine (Unverified Allergy, Mild, Constipation, 12/06/17) Past Medical History Congestive Heart Failure secondary to valvulopathy Severe symptomatic aortic stenosis CVA Atrial fibrillation COPD Hypertension Hyperlipidemia Diabetes mellitus Past Surgical History Bladder surgery Hysterectomy Appendectomy Reported Medications Coreg (Carvedilol) 6.25 Mg Tab 6.25 Mg PO Q12HR Entresto (Sacubitril-Valsartan) 24-26 Mg Tab 1 Tab PO BID Eliquis (Apixaban) 2.5 Mg Tab 2.5 Mg PO BID Lasix (Furosemide) 40 Mg Tab 40 Mg PO DAILY Lactobacillus Acidophilus 1 Billion Cell Tab 1 Tab PO TIDAC Mynephrocaps Softgel (B Complex W-C No.20/Folic Acid) 1 Mg Capsule Krill Oil 1,000 mg Softgel (Krill/Om-3/Dha/Epa/Phospho/Ast) 1,000-170MG Capsule Aspirin 81 (Aspirin) 81 Mg Tabdr 81 Mg PO DAILY D3 Super Strength (Cholecalciferol) 2,000 Unit Cap 2,000 Units PO DAILY Centrum Silver Adult 50+ (Multiple Vitamins W/ Minerals) 0.4 Mg-300 Mcg-250 Mcg Tab Combivent Respimat Inh (Ipratropium-Albuterol Inh) 20-100 Usp/Act Aero 1 Puff INH QID Potassium Chloride ER (Potassium Chloride) 10 Meq Cap 10 Meq PO DAILY Atorvastatin (Atorvastatin Calcium) 40 Mg Tab 40 Mg PO HS Active Ordered Medications See MAR Family History mother with CAD Social History current smoker, >70 pack year history. denies etoh, doa. Physical Exam Vital Signs Vital Signs Date Time Temp Pulse Resp B/P (MAP) Pulse Ox O2 Delivery O2 Flow Rate FiO2 01/13/18 08:20 98.6 71 18 142/74 (96) 96 Physical Exam GENERAL: Frail elderly female, lying in bed, rising from anesthesia HEENT: Normocephalic. Atraumatic. Pupils equal, round, reactive, conjugate. Mucous membranes are moist NECK: Trachea is midline. There is no JVD. Right IJ introducer sheath with transvenous pacer in place, site clean dry and intact CHEST: Nasal cannula oxygen. Unlabored. Equal chest rise. CARDIOVASCULAR: Normal rate, regular rhythm. Sinus by telemetry. Transvenous pacer is set VVI at a backup rate 50. Not currently paced. ABDOMEN: Soft, nontender, nondistended. No guarding. MUSCULOSKELETAL: Pulses 2+. No peripheral edema. Bilateral groin sites with dressings clean dry and intact, no hematoma. Distal pulses dopplerable. NEUROLOGICAL: Arousing from anesthesia. RASS -2. No focal deficits. Laboratory Laboratory Tests Test 01/13/18 08:10 White Blood Count 4.6 Red Blood Count 5.52 Hemoglobin 13.8 Hematocrit 41.9 Mean Corpuscular Volume 75.9 Mean Corpuscular Hemoglobin 25.1 Mean Corpuscular Hemoglobin Concent 33.1 Red Cell Distribution Width 20.8 Platelet Count 133 Mean Platelet Volume 9.1 Neutrophils (%) (Auto) 33.8 Lymphocytes (%) (Auto) 37.0 Monocytes (%) (Auto) 14.2 Eosinophils (%) (Auto) 10.5 Basophils (%) (Auto) 4.5 Neutrophils # (Auto) 1.6 Lymphocytes # (Auto) 1.7 Monocytes # (Auto) 0.7 Eosinophils # (Auto) 0.5 Basophils # (Auto) 0.2 CBC Comment DIFF FINAL Differential Comment Prothrombin Time 10.1 Prothromb Time International Ratio 1.0 Activated Partial Thromboplast Time 26.0 Blood Urea Nitrogen 24 Creatinine 1.29 Random Glucose 123 Calcium Level 9.5 Sodium Level 140 Potassium Level 4.2 Chloride Level 101 Carbon Dioxide Level 31.3 Anion Gap 8 Estimat Glomerular Filtration Rate 39 Result Diagram: 01/13/18 0810 01/13/18 0810 Assessment and Plan Assessment and Plan Assessment: 87-year-old female postop day 0 status post transcatheter aortic valve replacement. Admit to ICU for close monitoring. Close neurovascular checks and groin watch. Maintain adequate urine output. s/p TAVR with iliac access 01/13 - mivf - anticoagulation per Dr. Leon - close uop monitoring - small LV cavity: may need adequate preload and may get hypotensive if volume deplete. Congestive Heart Failure secondary to valvulopathy - hold home lasix given recent operation - mivf - may need re-initiation of lasix in 24-48h. Hypertension - goal sbp < 180 - add back anti-hypertensives as needed. Hyperlipidemia - restart home statin COPD current tobacco use - nebs - wean o2 for goal spo2 > 90% - aggressive pulmonary toilet - ambulate after flat time Diabetes Mellitus - SSI Critical care will continue to follow along as long as patient remains in the CVICU. Wilfredo Irvin MD Jan 13, 2018 14:58
[2018-01-13] MEDS ORDERED: DEXTROSE 50% IN WATER 50 ML VIAL(D50) IV PUSH PRN ×2 (15:00→15:45)
[2018-01-13] MEDS ORDERED: RESP: ALBUTEROL 2.5 MG/IPRATROPIUM 0.5 MG NEB (PRN) INH (15:00)
[2018-01-13] MEDS ORDERED: hydrALAZINE HCL 20 MG/ML VIAL IV PUSH PRN (15:00)
[2018-01-13] MEDS ORDERED: IOHEXOL 350 MG/ML 100 ML BTL (for RAD DIAG) IVCONTRAST ONE (15:00)
--- NOTE | 2018-01-13 15:04 | EKG ---
Date Performed: 01/13/2018 Time Performed: 09:45:38 PTAGE: 87 years EKG: Sinus rhythm . Possible inferior infarct - age undetermined Abnormal ECG PREVIOUS TRACING : 12/22/2017 07.34 DOCTOR: Akshat Leon Interpretating Date/Time 01/13/2018 15:02:57
[2018-01-13] MEDS ORDERED: MIDAZOLAM HCL 2 MG/2 ML VIAL ONE (15:25)
[2018-01-13 15:28] VITALS: BP_SYST 124; BP_SYST 140; BP_DIAS 48; BP_DIAS 62; PULSE 65; PULSE 74; RESP 18; TEMP 97.5; O2SAT 97
[2018-01-13] MEDS ORDERED: ATROPINE SULFATE 1 MG/ML VIAL IV PUSH PRN (15:45)
[2018-01-13] MEDS ORDERED: CLOPIDOGREL 300 MG TAB PO ONE (15:45)
[2018-01-13] MEDS ORDERED: BENZOCAINE-MENTHOL (SUGAR FREE) 15 MG-3.6 MG LOZENGE BUCCAL PRN (15:45)
[2018-01-13] MEDS ORDERED: ACETAMINOPHEN 325 MG TAB PO PRN (15:45)
[2018-01-13] MEDS ORDERED: SODIUM CHLOR 0.9% 1000 ML INJ 1,000 ML IV SCH (15:45)
[2018-01-13] MEDS ORDERED: MISC INFORMATION OTHER ONE (15:45)
[2018-01-13] MEDS ORDERED: GLUCAGON 1 MG/ML VIAL OTHER PRN (15:45)
[2018-01-13] MEDS ORDERED: ONDANSETRON HCL 4 MG/2 ML VIAL IV PUSH PRN (15:45)
[2018-01-13] MEDS: RESP: ALBUTEROL 2.5 MG/IPRATROPIUM 0.5 MG NEB (SCH) INH ×2 (16:00→19:23)
[2018-01-13] MEDS: INSULIN NovoLIN REGULAR SUPPLEMENTAL SCALE SQ SCH ×2 (17:00→21:00)
--- NOTE | 2018-01-13 17:48 | MP ---
cc: AKSHAT LEON MD DATE OF SURGERY: 01/13/2018 PROCEDURE: Transcatheter aortic valve replacement. BANK APPRAISER/CLINICAL AIDE: Dr. Akshat Leon. PRIMARY CARDIOTHORACIC SURGICAL BUSINESS SUPPORT: Janet Live MD. SECONDARY CARDIOTHORACIC SURGICAL BUSINESS SUPPORT: Shalini Hughes MD. PROCEDURE PERFORMED 1. Fluoroscopy identification. 2. Ascending aortography. 3. Temporary transvenous pacemaker placement. 4. Transesophageal echocardiogram. 5. Transcatheter aortic valve replacement. METHOD: The risks, benefits and alternatives discussed with the patient. The patient understood and consented to the procedure. The patient brought to the catheterization lab and placed on the catheterization table. Bilateral groins were prepped and draped in sterile fashion. Right internal jugular introducer was placed and a temporary transvenous pacemaker advanced into the right ventricular apex. Appropriate capture was confirmed. A 5-Tristanian 11 cm sheath was placed in the right femoral vein, 5-Tristanian 11 cm sheath was placed in the right femoral artery. Under angiographic approach fluoroscopic guidance micropuncture needle was advanced to the left common femoral artery. Digital subtraction angiography confirmed appropriate placement, 8-Tristanian sheath was advanced to the left common femoral artery. Two Perclose devices were partially deployed for Perclose. A 14-Tristanian Person sheath was then advanced in the left distal aorta. Ascending aortography: ROMANIAN-9 caudal for aortogram appropriately dilated to 3 cusps which were in a coaxial plane. Aortic valvuloplasty. A 6-Tristanian AL-1 guide catheter was advanced through the ascending aorta. Straight tipped Amplatz wire was advanced carefully across the aortic valve, AL-1 catheter advanced behind it. A standard J-wire was then advanced into the distal apical left ventricle without difficulty. The catheter was removed with the wire in place. A standard 6-Tristanian pigtail catheter was then advanced into the apex and wire removed. MedWhattronic wire was then advanced to the apex and the catheter removed. A 20 mm valvuloplasty balloon was then prepped and advanced over the arch. The valvuloplasty balloon was advanced across the aortic valve with rapid pacing deployed. Repeat angiography did show moderate to severe aortic insufficiency which the patient tolerated fairly well. The balloon was removed. A 23 mm S3 Person device was then prepped advanced over the wire. The device was carefully navigated to the aortic valve annulus. Several different image contrast aortograms were performed within the right and non-coronary cusps to ensure appropriate placement. With rapid pacing the device was then successfully deployed. Repeat transesophageal echocardiogram revealed good expansion with appropriate placement. There was no significant paravalvular leak and no significant aortic stenosis. The wire was removed. Both right sheaths were removed. Hemostasis was performed with 5-Tristanian Minx in both. The left sheath was removed and two Perclose devices successfully deployed. CONCLUSION 1. Successful transcatheter aortic valve replacement utilizing Person S3 23 mm device. 2. Successful left aortography. 3. Successful temporary transvenous pacemaker placement. 4. Successful aortic valvuloplasty. PLAN Will monitor the patient closely for any post procedural complications. The patient was under general anesthesia. He will be recovered appropriately. Will monitor heart rhythm and anticipate possible discontinuation of the temporary transvenous pacemaker tomorrow. The patient will be loaded on Plavix. MD ROGER Scott/JAYA /3:37 PM /5:00 PM
[2018-01-13 18:00] VITALS: O2SAT 96
[2018-01-13] MEDS ORDERED: NON-FORMULARY DRUG (Ipratropium-Albuterol Inh (Combivent Respimat Inh) 1 PUFF) INH SCH (18:00)
[2018-01-13 19:00] VITALS: BP_SYST 127; BP_SYST 142; BP_DIAS 42; BP_DIAS 44; PULSE 77; RESP 14; TEMP 97.8; O2SAT 96
[2018-01-13 19:23] VITALS: O2SAT 98
[2018-01-13] MEDS: ATORVASTATIN 40 MG TAB PO SCH (20:56)
[2018-01-13] MEDS: ALBUTEROL SULFATE 90 MCG/ACT HFA 8 GM INHALER INH SCH (21:00)
[2018-01-13 23:00] VITALS: BP_SYST 141; BP_SYST 161; BP_DIAS 41; BP_DIAS 70; PULSE 84; PULSE 85; RESP 14; TEMP 98.1; O2SAT 95
[2018-01-14] VITALS (16 sets, daily range): BP systolic 111–157; BP diastolic 42–61; PULSE 74–100; RESP 14–19; TEMP 97.8–98.9; O2SAT 92–97
[2018-01-14] MEDS: SODIUM CHLOR 0.9% 1000 ML 1,000 ML IV SCH ×3 (00:30→16:30)
[2018-01-14] MEDS: INSULIN NovoLIN REGULAR SUPPLEMENTAL SCALE SQ SCH ×5 (03:00→21:46)
[2018-01-14] MEDS: RESP: ALBUTEROL 2.5 MG/IPRATROPIUM 0.5 MG NEB (SCH) INH ×4 (03:08→20:12)
[2018-01-14 05:27] LABS: HEMATOCRIT 39.9 % (35.0-46.0); HEMOGLOBIN 13.2 GM/DL (11.6-15.3); MEAN CELL VOLUME 75.6 FL (80.0-100.0); MEAN PLATELET VOLUME 8.8 FL (7.0-11.0); PLATELET COUNT 109 TH/MM3 (150-450); RED BLOOD COUNT 5.27 MIL/MM3 (4.00-5.30); RED CELL DISTRIBUTION WIDTH 19.9 % (11.6-17.2); WHITE BLOOD COUNT 5.1 TH/MM3 (4.0-11.0)
[2018-01-14 05:36] LABS: ALBUMIN 3.1 GM/DL (3.4-5.0); AST (GOT) 53 U/L (15-37); BICARBONATE 25.4 MEQ/L (21.0-32.0); BLOOD UREA NITROGEN 18 MG/DL (7-18); CALCIUM 8.8 MG/DL (8.5-10.1); CHLORIDE 103 MEQ/L (98-107); CREATININE 1.12 MG/DL (0.50-1.00); GLOMERULAR FILTRATION RATE 46 ML/MIN (>89); GLUCOSE,RANDOM 145 MG/DL (74-106); SODIUM (NA) 137 MEQ/L (136-145)
[2018-01-14 05:38] LABS: ALT (GPT) 43 U/L (10-53)
[2018-01-14 05:39] LABS: ALKALINE PHOSPHATASE 78 U/L (45-117); TOTAL BILIRUBIN ADULT 0.9 MG/DL (0.2-1.0); TOTAL PROTEIN 6.8 GM/DL (6.4-8.2)
[2018-01-14] MEDS: TIOTROPIUM BROMIDE 18 MCG INH INH SCH (09:00)
[2018-01-14] MEDS: ASPIRIN EC 81 MG TABEC PO SCH (09:00)
[2018-01-14] MEDS: CARVEDILOL 6.25 MG TAB PO SCH ×2 (09:19→21:20)
[2018-01-14] MEDS: CLOPIDOGREL 75 MG TAB PO SCH (09:19)
[2018-01-14] MEDS: ASPIRIN 81 MG CHEW TAB PO SCH (09:19)
[2018-01-14] MEDS: ALBUTEROL SULFATE 90 MCG/ACT HFA 8 GM INHALER INH SCH ×4 (09:19→21:21)
[2018-01-14] MEDS: SACUBITRIL/VALSARTAN 24 MG-26 MG TAB PO SCH ×2 (09:20→21:20)
--- NOTE | 2018-01-14 09:30 | MB ---
cc: VIRAL POZO M.D. DATE OF CONSULTATION 01/14/2018 REASON FOR CONSULTATION Mrs. Parker is an 87-year-old female with a history of congestive heart failure, atrial fibrillation, COPD, high blood pressure, hyperlipidemia, severe aortic stenosis who was admitted for transaortic valve replacement. Procedure was performed. It was successful. I was consulted for evaluation for possible conduction disease. The chart was reviewed. The patient was evaluated. ALLERGIES CODEINE SOCIAL HISTORY Negative for smoking and drinking. FAMILY HISTORY Noncontributory to her current medical condition. MEDICATIONS Currently in the hospital, the patient is on: 1. Plavix 2. Ancef 3. Albuterol inhaler 4. Aspirin 5. Lipitor 40 mg a day 6. Coreg 6.25 mg a day 7. Plavix 75 mg a day 8. Lorazepam 9. Entresto REVIEW OF SYSTEMS The patient refers no chest pain, no chest discomfort, feeling better. No vomiting. No fever. PHYSICAL EXAM Alert, fully oriented. VITAL SIGNS: Blood pressure this morning 117/56, pulse 84, respiratory rate 20. LUNGS: Ventilated. CARDIOVASCULAR: S1, S2, irregular. No gallop. ABDOMEN: Soft. No mass. No bruit. EXTREMITIES: No edema. Electrocardiogram indicated sinus rhythm. No active ST and T-wave changes. LABORATORY DATA Hemoglobin is 13.2, white blood cell 5.1. Potassium 4.3, creatinine 1.12, INR 1.0. ASSESSMENT AND RECOMMENDATIONS Mrs. Parker currently is stable. No significant change in electrocardiogram prior or after the procedure. She has no AV block. She is doing well. At this point, my recommendation is to continue with current management. She can be discharged home when okay with the managing team. I will be available on a p.r.n. basis. MD FRANCISCO Joseph/CLAUDIA /8:22 AM /9:15 AM
--- NOTE | 2018-01-14 10:35 | PD.CAR.PN ---
CVT Progress Note Subjective/Hospital Course: Ms. Parker is a very pleasant and frail 87-year-old female, initially seen on with a known history of repeat congestive heart failure who was recently admitted on the 07 of December for a congestive heart failure exacerbation and who now presented with recurrent symptoms of shortness of breath. Again she was admitted for diuresis and underwent a coronary angiogram this time which failed to reveal any significant epicardial coronary artery disease. She carries a known diagnosis of aortic stenosis with an estimated valve area of 0.72 on her last evaluation with peak aortic gradient of 42. Based on these parameters and her repeated presenting complaints, she was seen by Dr. Live and has undergone further workup including surgical opinion for TAVR evaluation. She was deemed a candidate for TAVR and was electively admitted 01/13/18 for surgery PAST MEDICAL HISTORY: ., Atrial fibrillation, COPD, Hypertension, Hyperlipidemia, Diabetes mellitus, Severe aortic stenosis, Acute on chronic diastolic congestive heart failure surgery: 01/13 Transcatheter aortic valve replacement wit a 23 Miguelina 3 tissue valve Balloon aortic valvuloplasty with a 20 x 4 Person balloon Left and right femoral artery access with Perclose closure on the left Right femoral venous access Aortography Fluoroscopy 01/14 pt has had uneventful night has been seen and cleared by [facility] management specialist / no AV Block, she has not required pacing throughout the night still on 2 liter nasal cannula , which can be weaned off ECHO completed Pt has tolerated being out of bed Objective: GENERAL: A&O x 3 SKIN: Warm and dry. dressing in tact both groins HEAD: Normocephalic. EYES: No scleral icterus. No injection or drainage. NECK: Supple, trachea midline. No JVD or lymphadenopathy. CARDIOVASCULAR: Regular rate and rhythm without murmurs, gallops, or rubs. right IJ temp pacer in place , has not required back up pacing , RESPIRATORY: Breath sounds equal bilaterally. No accessory muscle use. GASTROINTESTINAL: Abdomen soft, non-tender, nondistended. MUSCULOSKELETAL: No cyanosis, or edema. BACK: Nontender without obvious deformity. No CVA tenderness. Vital Signs Date Time Temp Pulse Resp B/P (MAP) Pulse Ox O2 Delivery O2 Flow Rate FiO2 01/14/18 09:55 95 Nasal Cannula 2.00 01/14/18 07:00 84 01/14/18 07:00 84 01/14/18 07:00 97.8 84 16 117/56 (76) 95 157/44 (81) 01/14/18 03:00 89 01/14/18 03:00 89 01/14/18 03:00 97.9 89 14 118/58 (78) 97 151/42 (78) 01/13/18 23:00 98.1 85 14 161/70 (100) 95 141/41 (74) 01/13/18 23:00 84 01/13/18 23:00 85 01/13/18 19:23 98 Nasal Cannula 2.00 01/13/18 19:00 77 01/13/18 19:00 77 01/13/18 19:00 97.8 77 14 127/42 (70) 96 142/44 (76) 01/13/18 18:00 96 Nasal Cannula 3.00 01/13/18 15:28 65 01/13/18 15:28 65 01/13/18 15:28 97.5 74 18 124/62 (82) 97 140/48 (78) Labs: Laboratory Tests Test 01/14/18 04:40 White Blood Count 5.1 TH/MM3 (4.0-11.0) Red Blood Count 5.27 MIL/MM3 (4.00-5.30) Hemoglobin 13.2 GM/DL (11.6-15.3) Hematocrit 39.9 % (35.0-46.0) Mean Corpuscular Volume 75.6 FL (80.0-100.0) Mean Corpuscular Hemoglobin 25.0 PG (27.0-34.0) Mean Corpuscular Hemoglobin Concent 33.0 % (32.0-36.0) Red Cell Distribution Width 19.9 % (11.6-17.2) Platelet Count 109 TH/MM3 (150-450) Mean Platelet Volume 8.8 FL (7.0-11.0) Blood Urea Nitrogen 18 MG/DL (7-18) Creatinine 1.12 MG/DL (0.50-1.00) Random Glucose 145 MG/DL (74-106) Total Protein 6.8 GM/DL (6.4-8.2) Albumin 3.1 GM/DL (3.4-5.0) Calcium Level 8.8 MG/DL (8.5-10.1) Alkaline Phosphatase 78 U/L (45-117) Aspartate Amino Transf (AST/SGOT) 53 U/L (15-37) Alanine Aminotransferase (ALT/SGPT) 43 U/L (10-53) Total Bilirubin 0.9 MG/DL (0.2-1.0) Sodium Level 137 MEQ/L (136-145) Potassium Level 4.3 MEQ/L (3.5-5.1) Chloride Level 103 MEQ/L (98-107) Carbon Dioxide Level 25.4 MEQ/L (21.0-32.0) Anion Gap 9 MEQ/L (5-15) Estimat Glomerular Filtration Rate 46 ML/MIN (>89) Result Diagram: 01/14/1843901/14/18439 Telemetry: NSR (1) S/P TAVR (transcatheter aortic valve replacement) Plan: on ASA, plavix BB rhythm stable OOB ambulate stable from CVS standpoint further orders and discharge planning per Dr Leon (2) Severe aortic stenosis (3) Acute on chronic diastolic congestive heart failure Plan: on Lina Escobar Jan 14, 2018 10:35
--- NOTE | 2018-01-14 11:27 | PD.CARD.PN ---
Subjective Subjective Remarks Doing well. Sitting up in a chair. No complaints. No arrhythmias. Objective Medications Current Medications Medications (Trade) Dose Ordered Sig/Xiang Route Start Time Stop Time Status Last Admin Sodium Chloride 1,000 ml @ 125 mls/hr Q8H IV 01/13/18 08:30 Cefazolin Sodium/ Dextrose 50 ml @ 100 mls/hr [employer] PRN IV 01/13/18 08:15 01/16/18 08:14 01/13/18 12:30 (Betadine 5% Antisepsis Kit) 1 applic [employer] PRN EACH NARE 01/13/18 08:15 01/16/18 08:14 01/13/18 11:24 (Bactroban Nasal 2% Oint) 1 applic [employer] PRN EACH NARE 01/13/18 08:15 01/16/18 08:14 (Chlorhexidine 2% Cloth) 3 pack [employer] PRN TOPICAL 01/13/18 08:15 01/16/18 08:14 01/13/18 11:24 (Ecotrin Ec) 81 mg DAILY PO 01/14/18 09:00 (Lipitor) 40 mg HS PO 01/13/18 21:00 01/13/18 20:56 (Coreg) 6.25 mg Q12HR PO 01/14/18 09:00 01/14/18 09:19 (Entresto 24-26 Mg) 1 tab BID PO 01/14/18 09:00 01/14/18 09:20 (Duoneb Neb) 1 ampule Q6HR NEB INH 01/13/18 16:00 01/14/18 09:55 (Duoneb Neb) 1 ampule Q2HR NEB PRN INH 01/13/18 15:00 (NovoLIN R SUPPLEMENTAL SCALE) 1 ACHS AND 3AM SQ 01/13/18 17:00 (Apresoline Inj) 10 mg Q1H PRN IV PUSH 01/13/18 15:00 (Spiriva Inh) 18 mcg DAILY INH 01/14/18 09:00 01/14/18 09:00 (Proair Hfa Inh) 1 puff QID INH 01/13/18 18:00 01/14/18 09:19 (Tylenol) 650 mg Q4H PRN PO 01/13/18 15:45 01/14/18 15:44 (Cepacol Extra Emiliano (Sugar Free)) 1 lozenge Q3H PRN BUCCAL 01/13/18 15:45 01/14/18 15:44 (Atropine Inj) 0.5 mg UNSCH PRN IV PUSH 01/13/18 15:45 01/14/18 15:44 (Aspirin Chew) 81 mg DAILY PO 01/14/18 09:00 01/14/18 09:19 (Plavix) 75 mg DAILY PO 01/14/18 09:00 01/14/18 09:19 (D50w (Vial) Inj) 50 ml UNSCH PRN IV PUSH 01/13/18 15:45 (Glucagon Inj) 1 mg UNSCH PRN OTHER 01/13/18 15:45 Vital Signs / I&O Vital Signs Date Time Temp Pulse Resp B/P (MAP) Pulse Ox O2 Delivery O2 Flow Rate FiO2 01/14/18 11:00 98.1 96 16 123/54 (77) 92 Arterial Line 01/14/18 11:00 92 01/14/18 11:00 96 01/14/18 09:55 95 Nasal Cannula 2.00 01/14/18 07:00 84 01/14/18 07:00 84 01/14/18 07:00 97.8 84 16 117/56 (76) 95 157/44 (81) 01/14/18 03:00 89 01/14/18 03:00 89 01/14/18 03:00 97.9 89 14 118/58 (78) 97 151/42 (78) 01/13/18 23:00 98.1 85 14 161/70 (100) 95 141/41 (74) 01/13/18 23:00 84 01/13/18 23:00 85 01/13/18 19:23 98 Nasal Cannula 2.00 01/13/18 19:00 77 01/13/18 19:00 77 01/13/18 19:00 97.8 77 14 127/42 (70) 96 142/44 (76) 01/13/18 18:00 96 Nasal Cannula 3.00 01/13/18 15:28 65 01/13/18 15:28 65 01/13/18 15:28 97.5 74 18 124/62 (82) 97 140/48 (78) I/O 2/21/18 2/2101/13/18 01/14/18 01/14/18 01/14/18 07:00 15:00 23:00 07:00 15:00 23:00 Intake Total 1600 ml 240 ml 240 ml Output Total 600 ml 800 ml 1115 ml Balance 1000 ml -560 ml -875 ml Intake Oral 240 ml 240 ml Other 1600 ml Output Urine Total 400 ml 800 ml 1115 ml Estimated Blood Loss 200 ml # Bowel Movements 0 Physical Exam EYES: No scleral icterus. No injection or drainage. NECK: Supple, trachea midline. No JVD or lymphadenopathy. CARDIOVASCULAR: Regular rate and rhythm without murmurs, gallops, or rubs. RESPIRATORY: Breath sounds equal bilaterally. fine bibasilar crackles GASTROINTESTINAL: Abdomen soft, non-tender, nondistended. MUSCULOSKELETAL: No cyanosis, or edema. BACK: Nontender without obvious deformity. No CVA tenderness. Laboratory Laboratory Tests Test 01/14/18 04:40 White Blood Count 5.1 TH/MM3 Red Blood Count 5.27 MIL/MM3 Hemoglobin 13.2 GM/DL Hematocrit 39.9 % Mean Corpuscular Volume 75.6 FL Mean Corpuscular Hemoglobin 25.0 PG Mean Corpuscular Hemoglobin Concent 33.0 % Red Cell Distribution Width 19.9 % Platelet Count 109 TH/MM3 Mean Platelet Volume 8.8 FL Blood Urea Nitrogen 18 MG/DL Creatinine 1.12 MG/DL Random Glucose 145 MG/DL Total Protein 6.8 GM/DL Albumin 3.1 GM/DL Calcium Level 8.8 MG/DL Alkaline Phosphatase 78 U/L Aspartate Amino Transf (AST/SGOT) 53 U/L Alanine Aminotransferase (ALT/SGPT) 43 U/L Total Bilirubin 0.9 MG/DL Sodium Level 137 MEQ/L Potassium Level 4.3 MEQ/L Chloride Level 103 MEQ/L Carbon Dioxide Level 25.4 MEQ/L Anion Gap 9 MEQ/L Estimat Glomerular Filtration Rate 46 ML/MIN Assessment and Plan Problem List: (1) S/P TAVR (transcatheter aortic valve replacement) ICD Codes: Z95.2 - Presence of prosthetic heart valve (2) Severe aortic stenosis ICD Codes: I35.0 - Nonrheumatic aortic (valve) stenosis (3) Acute on chronic diastolic congestive heart failure ICD Codes: I50.33 - Acute on chronic diastolic (congestive) heart failure Assessment and Plan Severe aortic stenosis status post transcatheter aortic valve replacement. Follow-up 2D echocardiogram today Fine bibasilar crackles. Minimal cough. Will give 1 dose of Lasix 20 mg IV. Monitor creatinine and urine output. Continue aspirin and Plavix. Will resume anticoagulation with Eliquis tomorrow. Ambulate PT/OT Akshat Leon MD Jan 14, 2018 11:27
--- NOTE | 2018-01-14 11:43 | ECHRPT ---
Indication: TAVR CONCLUSIONS Normal left ventricular size. Mild concentric left ventricular hypertrophy. The left ventricular systolic function is grossly normal on limited imaging. Normally functioning bioprosthetic aortic valve replacement (TAVR) Trace paravalvular leak (benign) Mild aortic valve regurgitation. A prominent epicardial fat pad is present. BP: 118 / 58 HR: 89 Rhythm: Sinus MEASUREMENTS (Male / Female) Normal Values Technical Quality:Fair 2D ECHO LV Diastolic Diameter PLAX 4.3 cm 4.2 - 5.9 / 3.9 - 5.3 cm LV Systolic Diameter PLAX 2.8 cm IVS Diastolic Thickness 1.2 cm 0.6 - 1.0 / 0.6 - 0.9 cm LVPW Diastolic Thickness 1.2 cm 0.6 - 1.0 / 0.6 - 0.9 cm LV Relative Wall Thickness 0.6 RV Internal Dim ED PLAX 2.6 cm LVOT Diameter 1.9 cm Aortic Root Diameter 2.6 cm LA Systolic Diameter LX 3.3 cm 3.0 - 4.0 / 2.7 - 3.8 cm DOPPLER AV Peak Velocity 302.0 cm/s AV Peak Gradient 36.0 mmHg AV Mean Gradient 21.0 mmHg AV Velocity Time Integral 60.6 cm LVOT Peak Velocity 137.0 cm/s LVOT Peak Gradient 7.5 mmHg LVOT Velocity Time Integral 27.4 cm AV Area Cont Eq vti 1.3 cm AV Area Cont Eq pk 1.3 cm Mitral E Point Velocity 92.7 cm/s Mitral A Point Velocity 155.0 cm/s Mitral E to A Ratio 0.6 PV Peak Velocity 102.0 cm/s PV Peak Gradient 4.2 mmHg FINDINGS LEFT VENTRICLE Normal left ventricular size. Mild concentric left ventricular hypertrophy. The left ventricular systolic function is grossly normal on limited imaging. AORTIC VALVE Normally functioning bioprosthetic aortic valve replacement (TAVR) Trace paravalvular leak Aortic valve mean gradient is 21 mmHg. Aortic valve area is 1.3 cm. PERICARDIUM A prominent epicardial fat pad is present. Akshat Leon MD, FACC (Electronically Signed) Final Date:14 January 2018 11:42
[2018-01-14] MEDS ORDERED: FUROSEMIDE 20 MG/2 ML VIAL IV PUSH ONE (12:00)
--- NOTE | 2018-01-14 14:29 | RADRPT ---
EXAM DATE/TIME: 01/14/2018 12:46 [facility] COMPARISON: CHEST SINGLE AP, December 22, 2017, 7:24. INDICATIONS : Post valve repair. MEDICAL HISTORY : Stroke. Hypertension. Chronic obstructive pulmonary disease. SURGICAL HISTORY : Hysterectomy. Cholecystectomy. ENCOUNTER: Initial ACUITY: 1 day PAIN SCORE: 0/10 LOCATION: Bilateral chest FINDINGS: The heart is enlarged. There are chronic interstitial changes throughout both lungs. The overall appe arance the interstitium has improved when compared to previous dated 12/22/17. Note is made of aortic valve replacement. Note is made of an introducer cannula within the low right internal jugular vein. No pneumothorax is seen. CONCLUSION: 1. Cardiomegaly and chronic interstitial changes. 2. Improved pulmonary edema compared to previous. 3. Note is made of a TAVR Alfonzo Conroy MD on January 14, 2018 at 14:25 Board Certified Radiologist. This report was verified electronically.
[2018-01-14] MEDS ORDERED: BENZOCAINE-MENTHOL (SUGAR FREE) 15 MG-3.6 MG LOZENGE BUCCAL PRN (18:30)
--- NOTE | 2018-01-14 19:53 | EKG ---
Date Performed: 01/14/2018 Time Performed: 06:06:02 PTAGE: 87 years EKG: Sinus rhythm Inferior infarct - age undetermined Low QRS voltages in precordial leads Abnormal ECG PREVIOUS TRACING : 01/13/2018 09.45 Since the prior tracing, there has been no significant box DOCTOR: Jennie Vinson Interpretating Date/Time 01/14/2018 19:50:43
[2018-01-14] MEDS: ATORVASTATIN 40 MG TAB PO SCH (21:20)
[2018-01-15] VITALS (17 sets, daily range): BP systolic 98–123; BP diastolic 50–58; PULSE 70–154; RESP 20; TEMP 98.5–98.9; O2SAT 92
[2018-01-15] MEDS: SODIUM CHLOR 0.9% 1000 ML 1,000 ML IV SCH ×2 (00:30→07:20)
[2018-01-15] MEDS: INSULIN NovoLIN REGULAR SUPPLEMENTAL SCALE SQ SCH ×2 (03:00→08:00)
[2018-01-15] MEDS: RESP: ALBUTEROL 2.5 MG/IPRATROPIUM 0.5 MG NEB (SCH) INH ×2 (03:51→10:01)
[2018-01-15] MEDS ORDERED: DIGOXIN 0.5 MG/2 ML VIAL IV PUSH ONE (06:15)
[2018-01-15] MEDS ORDERED: DIGOXIN 0.5 MG/2 ML VIAL IV PUSH PRN (07:15)
[2018-01-15] MEDS ORDERED: AMIO400T PO (08:44)
[2018-01-15] MEDS ORDERED: METO25TA3 PO (08:44)
[2018-01-15] MEDS ORDERED: BENA5TAB PO (08:45)
[2018-01-15] MEDS ORDERED: FURO1TAB62 PO (08:46)
[2018-01-15] MEDS ORDERED: PLAV75TA29 PO (08:47)
--- NOTE | 2018-01-15 08:49 | HHI.DS ---
Discharge Summary Admission Date Jan 13, 2018 at 07:41 Discharge Date: Jan 15, 2018 Admitting Diagnosis Aortic stenosis Procedures Transcatheter aortic valve replacement CBC/BMP: 01/14/18 0440 01/14/18 0440 Significant Findings Laboratory Tests Test 01/13/18 08:10 01/14/18 04:40 Red Blood Count 5.52 MIL/MM3 (4.00-5.30) Mean Corpuscular Volume 75.9 FL (80.0-100.0) 75.6 FL (80.0-100.0) Mean Corpuscular Hemoglobin 25.1 PG (27.0-34.0) 25.0 PG (27.0-34.0) Red Cell Distribution Width 20.8 % (11.6-17.2) 19.9 % (11.6-17.2) Platelet Count 133 TH/MM3 (150-450) 109 TH/MM3 (150-450) Monocytes (%) (Auto) 14.2 % (0.0-8.0) Eosinophils (%) (Auto) 10.5 % (0.0-4.0) Basophils (%) (Auto) 4.5 % (0.0-2.0) Neutrophils # (Auto) 1.6 TH/MM3 (1.8-7.7) Eosinophils # (Auto) 0.5 TH/MM3 (0-0.4) Blood Urea Nitrogen 24 MG/DL (7-18) Creatinine 1.29 MG/DL (0.50-1.00) 1.12 MG/DL (0.50-1.00) Random Glucose 123 MG/DL (74-106) 145 MG/DL (74-106) Estimat Glomerular Filtration Rate 39 ML/MIN (>89) 46 ML/MIN (>89) Albumin 3.1 GM/DL (3.4-5.0) Aspartate Amino Transf (AST/SGOT) 53 U/L (15-37) PE at Discharge HEAD: Normocephalic. EYES: No scleral icterus. No injection or drainage. NECK: Supple, trachea midline. No JVD or lymphadenopathy. CARDIOVASCULAR: Regular rate and rhythm without murmurs, gallops, or rubs. RESPIRATORY: Breath sounds equal bilaterally. No accessory muscle use. GASTROINTESTINAL: Abdomen soft, non-tender, nondistended. MUSCULOSKELETAL: No cyanosis, or edema. BACK: Nontender without obvious deformity. No CVA tenderness. Hospital Course Patient underwent transcatheter aortic valve replacement without complication. Postoperative course was unremarkable. Patient was seen by physical therapy and occupational therapy in addition to electrophysiology. Patient is anticipated for discharge today. Patient will follow up with Dr. Salmeron and myself in the outpatient setting. Pt Condition on Discharge: Good Discharge Disposition: Discharge Home Discharge Instructions DIET: Follow Instructions for: Heart Healthy Diet Activities you can perform: Weight Bearing as Cole Activities to avoid: Bathing Akshat Leon MD Jan 15, 2018 08:48
[2018-01-15] MEDS: ALBUTEROL SULFATE 90 MCG/ACT HFA 8 GM INHALER INH SCH (08:53)
[2018-01-15] MEDS: TIOTROPIUM BROMIDE 18 MCG INH INH SCH (08:53)
[2018-01-15] MEDS: ASPIRIN EC 81 MG TABEC PO SCH (08:54)
[2018-01-15] MEDS: CLOPIDOGREL 75 MG TAB PO SCH (08:54)
[2018-01-15] MEDS: SACUBITRIL/VALSARTAN 24 MG-26 MG TAB PO SCH (08:54)
[2018-01-15] MEDS: ASPIRIN 81 MG CHEW TAB PO SCH (08:55)
[2018-01-15] MEDS ORDERED: METOPROLOL TARTRATE 25 MG TAB PO SCH (09:00)
[2018-01-15] MEDS ORDERED: AMIODARONE INJ 150 MG in DEXTROSE 5% IN WATER 100ML INJ 97 ML IV ONE ×2 (10:00)
[2018-01-16] MEDS ORDERED: AMIODARONE 200 MG TAB PO SCH (09:00)
== END 2018-01-15 14:45 | disposition home or self-care (01) | DRG 266 ==
LOC: HDIC 01-13 07:41 → HCVI 01-13 15:18 → HCPC 01-14 12:08
PROVIDERS: ADMIT Internal Medicine; ATTEND Internal Medicine
PROC: B3101ZZ Fluoroscopy of Thoracic Aorta using Low Osmolar Contrast (ICD-10-PCS; 2018-01-13)
PROC: 02RF38Z Replacement of Aortic Valve with Zooplastic Tissue, Percutaneous Approach (ICD-10-PCS; principal; 2018-01-13 12:10)
PROC: 027F3ZZ Dilation of Aortic Valve, Percutaneous Approach (ICD-10-PCS; 2018-01-13 12:10)
PROC: B246ZZ4 Ultrasonography of Right and Left Heart, Transesophageal (ICD-10-PCS; 2018-01-13 12:10)
DX: I08.2 Rheumatic disorders of both aortic and tricuspid valves (principal); I50.33 Acute on chronic diastolic (congestive) heart failure; I48.91 Unspecified atrial fibrillation; J44.9 Chronic obstructive pulmonary disease, unspecified; I11.0 Hypertensive heart disease with heart failure; Z86.73 Personal history of transient ischemic attack (TIA), and cerebral infarction without residual deficits; E78.5 Hyperlipidemia, unspecified; E11.9 Type 2 diabetes mellitus without complications; F17.210 Nicotine dependence, cigarettes, uncomplicated; Z00.6 Encounter for examination for normal comparison and control in clinical research program; Z90.710 Acquired absence of both cervix and uterus
CPT/HCPCS: 33210; 33361; 71045; 80048; 80053; 82948; 85002; 85025; 85027; 85610; 85730; 86850; 86900; 86901; 86920; 92986; 93005; 93308; 93312; 93320; 93325; 94150; 94640; 94664; 94667; 94668; C1760; C1769; C1893; G0269; J0282; J0690; J1160; J1644; J1940; J2060; J2250; J2370; J2710; J2720; J3010; J7030; J7040; J7050; J7120; Q9967